=== PATIENT | male | born 1940 | race Caucasian/White ===

== ENCOUNTER 2016-07-06 17:00 | Emergency (ER) | payer MEDICARE, OTHER, SELFPAY ==
[2016-07-06] MEDS ORDERED: DUONEB 0.5-3 MG/3 ml Neb IH ONE ×2 (17:23→17:27)
[2016-07-06] MEDS ORDERED: solu-MEDROL 125 MG IV ONE (17:23)
--- NOTE | 2016-07-06 17:29 | ERPHSYRPT ---
- History of Present Illness Time Seen by Provider: 07/06/16 17:23 Source: patient Exam Limitations: no limitations Patient Subjective Stated Complaint: shortness of breath for three days Triage Nursing Assessment: to room per w/c. obvious sob at rest. breath sounds diminished with insp and exp wheezes. denies any pain. Physician History: 76-year-old white male arrives with complaint of shortness of breath wheezing symptoms for 3 days he states he had a cough productive of white sputum he has no chest pain he denies any fevers no nausea no vomiting. Past medical history includes COPD, high blood pressure, emphysema, chronic back pain.coronary artery disease Past surgical history includes bleeding ulcer repair, back surgeries, Social history positive tobacco use. Timing/Duration: day(s) (3 days worse today) Activities at Onset: none Severity of Dyspnea-Max: moderate Severity of Dyspnea-Current: moderate Possible Cause: occasional episodes Modifying Factors: Improves With: coughing. Worsens With: nothing, albuterol inhaler, albuterol nebulizer, deep breath, exertion, lying down, oxygen, rest Associated Symptoms: constant, cough, wheezing, productive cough, No chest pain/ discomfort, No edema, No fever, No insomnia, No loss of appetite, No lightheadedness, No weakness, No ankle swelling, No chills, No hemoptysis, No calf pain, No dizziness, No heaviness, No heart racing, No lightheadedness, No leg swelling, No muscle spasms feet, No muscle spasms hands, No painful breathing, No sweating, No tightness, No tingling face, No tingling hands International travel in last 2 weeks: No Allergies/Adverse Reactions: No Known Drug Allergies Allergy (Verified 07/06/16 17:22) Home Medications: Amlodipine Besylate 10 mg [Norvasc 10 MG] 10 mg PO DAILY 08/31/11 [History] Gabapentin [Neurontin] 600 mg PO BID 06/27/15 [History] Hydrocodone/APAP 10/325 mg [[place] 10/325 MG Tablet] 1 tab PO QIDPRN PRN [History] Latanoprost [Xalatan] 1 ml OP BID 06/27/15 [History] [place]-3 Fatty Acids [Fish Oil] 300 mg PO BID 07/06/16 [History] Hx Tetanus, Diphtheria Vaccination/Date Given: No Hx Influenza Vaccination/Date Given: Yes (2015) Hx Pneumococcal Vaccination/Date Given: Yes (2016) - Review of Systems Constitutional: No Fever, No Chills Eyes: No Symptoms Ears, Nose, & Throat: No Symptoms Respiratory: Cough, Dyspnea, Wheezing, No Cyanosis, No Dyspnea on Exertion (BELTRAN) , No Stridor Cardiac: No Chest Pain, No Edema, No Palpitations, No Syncope, No Orthopnea Abdominal/Gastrointestinal: No Abdominal Pain, No Nausea, No Vomiting, No Diarrhea Genitourinary Symptoms: No Dysuria Musculoskeletal: No Back Pain, No Neck Pain Skin: No Rash Neurological: No Dizziness, No Focal Weakness, No Sensory Changes Psychological: No Symptoms Endocrine: No Symptoms All Other Systems: Reviewed and Negative - Past Medical History Pertinent Past Medical History: Yes Neurological History: Peripheral Neuropathy ENT History: Cataracts, Glaucoma Cardiac History: Coronary Artery Disease, High Cholesterol, Hypertension Respiratory History: COPD, Emphysema, Pneumonia Endocrine Medical History: No Pertinent History Musculoskeletal History: Arthritis GI Medical History: Ulcer History: No Pertinent History Psycho-Social History: No Pertinent History Male Reproductive Disorders: No Pertinent History Other Medical History: pain history with BLE - Past Surgical History Past Surgical History: Yes Neuro Surgical History: No Pertinent History Cardiac: No Pertinent History Respiratory: No Pertinent History Gastrointestinal: Other Genitourinary: No Pertinent History Musculoskeletal: No Pertinent History Male Surgical History: No Pertinent History Other Surgical History: Bleeding ulcer repair, back operations to the lumbar region et neck. - Social History Smoking Status: Current every day smoker How long have you smoked: 64 Exposure to second hand smoke: Yes Drug Use: none Patient Lives Alone: No - Nursing Vital Signs Nursing Vital Signs: Initial Vital Signs Temperature 98.2 F Temperature Source Oral Pulse Rate 76 Respiratory Rate 20 Blood Pressure [] 120/60 Pain Intensity 0 - Physical Exam General Appearance: moderate distress Eye Exam: PERRL/EOMI, eyes nml inspection, No pale conjunctivae, No photophobia Ears, Nose, Throat Exam: hearing grossly normal, normal ENT inspection, normal pharynx, No abnormal TM (R), No abnormal TM (L), No sinus pain/drainage, No hearing decreased, No nasal congestion, No pharyngeal erythema, No tonsillar exudate, No tonsillar swelling Neck Exam: normal inspection, supple Respiratory Exam: diminished breath sounds, wheezing Cardiovascular/Chest Exam: normal heart sounds, regular rate/rhythm Abdominal/Gastrointestinal Exam: soft Extremity Exam: non-tender, normal range of motion, normal inspection, no calf tenderness, no pedal edema Peripheral Pulses Exam: dorsalis-pedis (R): 2+, dorsalis-pedis (L): 2+ Neurologic Exam: alert, oriented x 3, cooperative, medication nurse II-XII nml as tested, sensation nml, No motor deficits Skin Exam: normal color, warm, No dry SpO2 Interpretation: normal (97%) SpO2: 97 Oxygen Delivery: Room Air - Course Nursing assessment & vital signs reviewed: Yes EKG Interpreted by Me: RATE (67 bpm), Other (EKG: Sinus arrhythmia, 67 bpm, axis S1/QIII pattern, Q waves lead 3, no acute ST or T wave changes noted,) - Radiology Exams Chest X-ray Interpretation: Interpreted by me, Other (chest x-ray chronic interstitial lung markings in the bases cannot rule out superimposed pneumonia. ) Ordered Tests: Active Orders 24 hr Category Date Time Status Residential Program Director STAT Care 07/06/16 17:23 Active EKG-ER Only STAT Care 07/06/16 17:23 Active IV Insertion STAT Care 07/06/16 17:23 Active Oxygen-ED Only NASAL CANNULA 2 lpm Care 07/06/16 17:23 Active CHEST 1 VIEW (PORTABLE) Stat Exams 07/06/16 17:24 Taken BLOOD CULTURE Stat Lab 07/06/16 17:48 Received CBC W DIFF Stat Lab 07/06/16 17:48 Completed CMP Stat Lab 07/06/16 17:48 Completed CULTURE,SPUTUM Stat Lab 07/06/16 17:44 Ordered D-DIMER QUANTITATION Stat Lab 07/06/16 17:45 Completed NT PRO BNP Stat Lab 07/06/16 17:48 Completed TROPONIN Stat Lab 07/06/16 17:48 Completed VENOUS BLOOD GAS Urgent Lab 07/06/16 17:40 Completed Respiratory Nebulizer STAT RT 07/06/16 17:25 Completed Respiratory Nebulizer STAT RT 07/06/16 19:04 Active Medication Summary Generic Name Dose Route Start Last Admin Trade Name Freq PRN Reason Stop Dose Admin Ceftriaxone Sodium/Dextrose 50 mls @ 100 mls/hr 07/06/16 19:03 07/06/16 19:07 Rocephin 1 Gm-D5w 50 Ml Bag IV 07/06/16 19:32 100 mls/hr STAT ONE Administration Discontinued Medications Generic Name Dose Route Start Last Admin Trade Name Ting SALDIVAR Reason Stop Dose Admin Albuterol Sulfate 2.5 mg 07/06/16 19:03 07/06/16 19:19 Proventil 2.5 Mg/3 Ml Neb IH 07/06/16 19:04 2.5 mg STAT ONE Administration Albuterol Sulfate Confirm 07/06/16 19:19 Proventil 2.5 Mg/3 Ml Neb Administered 07/06/16 19:20 Dose 2.5 mg IH .STK-MED ONE Albuterol/Ipratropium 3 ml 07/06/16 17:23 07/06/16 17:28 Duoneb 0.5-3 Mg/3 Ml Neb IH 07/06/16 17:24 3 ml STAT ONE Administration Albuterol/Ipratropium Confirm 07/06/16 17:27 Duoneb 0.5-3 Mg/3 Ml Neb Administered 07/06/16 17:28 Dose 3 ml IH .STK-MED ONE Ceftriaxone Sodium/Dextrose Confirm 07/06/16 19:07 Rocephin 1 Gm-D5w 50 Ml Bag Administered 07/06/16 19:08 Dose 50 mls @ ud IV .STK-MED ONE Methylprednisolone Sodium Succinate 125 mg 07/06/16 17:23 07/06/16 17:54 Solu-Medrol 125 Mg IV 07/06/16 17:24 125 mg STAT ONE Administration Methylprednisolone Sodium Succinate Confirm 07/06/16 17:52 Solu-Medrol 125 Mg Administered 07/06/16 17:53 Dose 125 mg .ROUTE .STK-MED ONE Lab/Rad Data: Laboratory Result Diagrams 07/06/16 17:48 07/06/16 17:48 Laboratory Results 07/06/16 07/06/16 07/06/16 Range/Units 17:48 17:48 17:45 WBC 10.6 H (4.0-10.5) K/mm3 RBC 4.50 (4.1-5.6) M/mm3 Hgb 14.6 (12.5-18.0) gm/dl Hct 46.2 (42-50) % MCV 102.7 H (78-100) fl MCH 32.4 H (26-32) pg MCHC 31.6 L (32-36) g/dl RDW 13.8 (11.5-14.0) % Plt Count 251 (150-450) K/mm3 MPV 11.5 H (6-9.5) fl Gran % 63.8 (36.0-66.0) % Lymphocytes % 23.3 L (24.0-44.0) % Monocytes % 10.2 (0.0-12.0) % Eosinophils % 2.5 (0.00-5.0) % Basophils % 0.2 (0.0-0.4) % Basophils # 0.02 (0-0.4) D-Dimer 0.297 (0.00-0.49) mg/L VBG pH (7.32-7.42) VBG pCO2 at Pat Temp (42-55) mm/Hg VBG pO2 at Pat Temp (25-40) mm/Hg VBG HCO3 (22-28) meq/L VBG O2 Sat (Julai) (95-100) VBG Base Excess (-2.0-2.0) VBG Hemoglobin VBG Carboxyhemoglobin (0.0-6.9) % T HGB POC Potassium (3.5-5.1) Sodium 144 (136-145) mEq/L Potassium 4.6 (3.5-5.1) mEq/L Chloride 105 (98-107) mEq/L Carbon Dioxide 31.1 (21-32) mEq/L Anion Gap 12.2 (5-15) MEQ/L BUN 13 (9-20) mg/dL Creatinine 0.73 (0.55-1.30) mg/dl Estimated GFR > 60 ML/MIN Glucose 99 (70-110) MG/DL Calcium 8.4 L (8.5-10.1) mg/dL Total Bilirubin 0.4 (0.2-1.0) mg/dL AST 22 (15-37) U/L ALT 15 (12-78) U/L Alkaline Phosphatase 97 (46-116) U/L Troponin I < 0.017 (0.000-0.056) ng/ml NT-Pro-B Natriuret Pep 39 (0-450) pg/ml Serum Total Protein 6.4 (6.4-8.2) gm/dL Albumin 3.2 L (3.4-5.0) g/dL 07/06/16 Range/Units 17:40 WBC (4.0-10.5) K/mm3 RBC (4.1-5.6) M/mm3 Hgb (12.5-18.0) gm/dl Hct (42-50) % MCV (78-100) fl MCH (26-32) pg MCHC (32-36) g/dl RDW (11.5-14.0) % Plt Count (150-450) K/mm3 MPV (6-9.5) fl Gran % (36.0-66.0) % Lymphocytes % (24.0-44.0) % Monocytes % (0.0-12.0) % Eosinophils % (0.00-5.0) % Basophils % (0.0-0.4) % Basophils # (0-0.4) D-Dimer (0.00-0.49) mg/L VBG pH 7.42 (7.32-7.42) VBG pCO2 at Pat Temp 54 (42-55) mm/Hg VBG pO2 at Pat Temp 60 H (25-40) mm/Hg VBG HCO3 35.0 H* (22-28) meq/L VBG O2 Sat (Julia) 95.8 (95-100) VBG Base Excess 8.5 H (-2.0-2.0) VBG Hemoglobin 15.3 VBG Carboxyhemoglobin 5.7 (0.0-6.9) % T HGB POC Potassium 4.3 (3.5-5.1) Sodium (136-145) mEq/L Potassium (3.5-5.1) mEq/L Chloride (98-107) mEq/L Carbon Dioxide (21-32) mEq/L Anion Gap (5-15) MEQ/L BUN (9-20) mg/dL Creatinine (0.55-1.30) mg/dl Estimated GFR ML/MIN Glucose (70-110) MG/DL Calcium (8.5-10.1) mg/dL Total Bilirubin (0.2-1.0) mg/dL AST (15-37) U/L ALT (12-78) U/L Alkaline Phosphatase (46-116) U/L Troponin I (0.000-0.056) ng/ml NT-Pro-B Natriuret Pep (0-450) pg/ml Serum Total Protein (6.4-8.2) gm/dL Albumin (3.4-5.0) g/dL - Progress Progress: improved Air Movement: fair Progress Note: 07/06/16 19:05 Patient feeling better after DuoNeb and Solu-Medrol. Patient with increased lung markings bilateral bases which appear to be chronic but cannot rule out superimposed pneumonia. Patient with a few scattered wheezes remaining but improving. I have suggested placement for observation. Patient states he does not want to be admitted. Will give patient another albuterol treatment Will give 1 g of Rocephin IV and recheck. 07/06/16 19:25 Patient feeling better does not want to be admitted . Will send patient home with tapering dose of prednisone, albuterol inhaler, and Zithromax. Patient advised to follow-up with his family doctor. He is return for any problems or acute distress Patient is also advised to quit smoking. - Departure Time of Disposition: 19:26 Departure Disposition: Home Clinical Impression: Shortness of breath, COPD with exacerbation Pneumonia Qualifiers: Pneumonia type: due to unspecified organism Laterality: bilateral Lung location : lower lobe of lung Qualified Code(s): J18.9 - Pneumonia, unspecified organism Condition: Fair Critical Care Time: No Referrals: DOCTOR,NO FAMILY [Primary Care Provider] - Instructions: Chronic Obstructive Pulmonary Disease, Shortness of Breath, Pneumonia -- Adult Additional Instructions: Return home. Albuterol inhaler 2 puffs every 4-6 hours as needed. Zithromax Z-BEA as directed. Tapering dose of prednisone as directed. Follow-up with your family doctor. Return for any problems. Return for acute distress or for severe symptoms. stop smoking. Stop smoking. Stop smoking. Prescriptions: Albuterol Common Canister [Proventil Common Canister] 2 puff IH Q4-6HPRN PRN #0 puff PRN Reason: sob, wheezing Azithromycin 250 mg [Zithromax 250 MG TABLET] 0 mg PO ZPACK #6 tablet
[2016-07-06 17:44] LABS: VBG BASE EXCESS 8.5 (-2.0-2.0); VBG CARBOXYHEMOGLOBIN 5.7 % T HGB (0.0-6.9); VBG HEMOGLOBIN 15.3; VBG O2 SATURATION 95.8 (95-100); VBG POTASSIUM 4.3 (3.5-5.1); VBG pH 7.42 (7.32-7.42)
[2016-07-06] MEDS ORDERED: solu-MEDROL 125 MG ONE (17:52)
[2016-07-06 18:03] LABS: BASOPHIL % 0.2 % (0.0-0.4); Eosinophil % 2.5 % (0.00-5.0); Granulocytes % 63.8 % (36.0-66.0); Lymphocytes % 23.3 % (24.0-44.0); Mean Cell Volume 102.7 fl (78-100); Mean Corpuscular Hemoglobin 32.4 pg (26-32); Mean Platelet Volume 11.5 fl (6-9.5); Monocytes % 10.2 % (0.0-12.0); Platelet Count 251 K/mm3 (150-450); Red Cell Distribution Width 13.8 % (11.5-14.0); White Blood Count 10.6 K/mm3 (4.0-10.5)
[2016-07-06 18:29] LABS: ALBUMIN 3.2 g/dL (3.4-5.0); ALKALINE PHOSPHATASE 97 U/L (46-116); ANION GAP 12.2 MEQ/L (5-15); BILIRUBIN,TOTAL 0.4 mg/dL (0.2-1.0); BLOOD UREA NITROGEN 13 mg/dL (9-20); CHLORIDE 105 mEq/L (98-107); Carbon Dioxide 31.1 mEq/L (21-32); Glucose 99 MG/DL (70-110); Potassium 4.6 mEq/L (3.5-5.1); SGOT/AST 22 U/L (15-37); SGPT/ALT 15 U/L (12-78); SODIUM 144 mEq/L (136-145); TROPONIN < 0.017 ng/ml (0.000-0.056); Total Protein 6.4 gm/dL (6.4-8.2)
[2016-07-06] MEDS ORDERED: PROVENTIL 2.5 MG/3 ML NEB IH ONE ×2 (19:03→19:19)
[2016-07-06] MEDS ORDERED: ROCEPHIN 1 Gm-D5w 50 ml Bag** 50 ML IV ONE ×2 (19:03→19:07)
[2016-07-06 20:00] VITALS: BP 132/97; PULSE 76; O2SAT 95
--- NOTE | 2016-07-07 08:58 | XRAY ---
Indication: Short of breath. Comparison: June 26, 2015. Portable chest unchanged again with chronic lung markings. No focal infiltrate, consolidation, or large effusion. Heart is not enlarged. Vascularity normal. Bony thorax intact again with mild osteopenia and degenerative changes. Impression: Stable nonacute chest with chronic features.
== END 2016-07-06 20:07 | disposition home or self-care (01) ==
LOC: ED 17:00
DX: J18.9 Pneumonia, unspecified organism (principal); R06.02 Shortness of breath; I25.10 Atherosclerotic heart disease of native coronary artery without angina pectoris; I10 Essential (primary) hypertension; J43.9 Emphysema, unspecified
CPT/HCPCS: 36000; 36415; 71010; 80053; 82805; 83880; 84484; 85025; 85379; 87040; 93005; 93041; 94640; 96360; 96365; 96374; 99284; 99285; J0696; J2930; A9270-GY

== ENCOUNTER 2016-08-26 13:23 | Emergency (ER) | payer OTHER, MEDICARE ==
[2016-08-26] MEDS ORDERED: solu-MEDROL 125 MG IV ONE (13:38)
[2016-08-26] MEDS ORDERED: DUONEB 0.5-3 MG/3 ml Neb IH ONE ×2 (13:38→13:49)
[2016-08-26] MEDS ORDERED: Zofran 4 MG/2 ML VIAL IV ONE (13:40)
--- NOTE | 2016-08-26 13:43 | ERPHSYRPT ---
- History of Present Illness Time Seen by Provider: 08/26/16 13:38 Source: patient, family Exam Limitations: no limitations Physician History: Patient is a 76-year-old male with his son complaining of increasing shortness of breath for one week. Then a few days ago he became nauseated and has vomited with each oral intake. The son states he lost 10 pounds. The patient has reduced greenish ervin sputum at times. His past medical history significant for pneumonia, COPD, high blood pressure, and peripheral neuropathy. Timing/Duration: week(s) (1) Activities at Onset: none Severity of Dyspnea-Max: moderate Severity of Dyspnea-Current: moderate Possible Cause: occasional episodes, smoke exposure Modifying Factors: Improves With: albuterol inhaler, coughing Associated Symptoms: cough, wheezing Allergies/Adverse Reactions: No Known Drug Allergies Allergy (Verified 08/26/16 13:41) Home Medications: Amlodipine Besylate 10 mg [Norvasc 10 MG] 10 mg PO DAILY 08/31/11 [History] Gabapentin [Neurontin] 600 mg PO BID 06/27/15 [History] Hydrocodone/APAP 10/325 mg [[place] 10/325 MG Tablet] 1 tab PO QIDPRN PRN [History] Latanoprost [Xalatan] 1 ml OP BID 06/27/15 [History] [place]-3 Fatty Acids [Fish Oil] 300 mg PO BID 07/06/16 [History] Hx Tetanus, Diphtheria Vaccination/Date Given: No Hx Influenza Vaccination/Date Given: Yes (2015) Hx Pneumococcal Vaccination/Date Given: Yes (2015) - Review of Systems Constitutional: No Fever, No Chills Eyes: No Symptoms Ears, Nose, & Throat: No Symptoms Respiratory: Cough, Dyspnea Cardiac: No Chest Pain, No Edema, No Syncope Abdominal/Gastrointestinal: Vomiting Genitourinary Symptoms: No Dysuria Musculoskeletal: No Back Pain, No Neck Pain Skin: No Rash Neurological: No Dizziness, No Focal Weakness, No Sensory Changes Psychological: No Symptoms Endocrine: No Symptoms Hematologic/Lymphatic: No Symptoms Immunological/Allergic: No Symptoms All Other Systems: Reviewed and Negative - Past Medical History Pertinent Past Medical History: Yes Neurological History: Peripheral Neuropathy ENT History: Cataracts, Glaucoma Cardiac History: Coronary Artery Disease, High Cholesterol, Hypertension Respiratory History: COPD, Emphysema, Pneumonia Endocrine Medical History: No Pertinent History Musculoskeletal History: Arthritis GI Medical History: Ulcer History: No Pertinent History Psycho-Social History: No Pertinent History Male Reproductive Disorders: No Pertinent History Other Medical History: pain history with BLE - Past Surgical History Past Surgical History: Yes Neuro Surgical History: No Pertinent History Cardiac: No Pertinent History Respiratory: No Pertinent History Gastrointestinal: Other Genitourinary: No Pertinent History Musculoskeletal: No Pertinent History Male Surgical History: No Pertinent History Other Surgical History: Bleeding ulcer repair, back operations to the lumbar region et neck. - Social History Smoking Status: Current every day smoker How long have you smoked: 64 Exposure to second hand smoke: Yes Drug Use: none Patient Lives Alone: No - Nursing Vital Signs Nursing Vital Signs: Initial Vital Signs Temperature 98 F Temperature Source Oral Pulse Rate 95 Respiratory Rate 20 Blood Pressure [Right Arm] 136/66 Blood Pressure [Left Arm] 130/63 Pain Intensity 0 - Physical Exam General Appearance: no apparent distress, alert Eye Exam: PERRL/EOMI Ears, Nose, Throat Exam: hearing grossly normal Neck Exam: normal inspection, supple Respiratory Exam: diminished breath sounds, rhonchi, wheezing Cardiovascular/Chest Exam: normal heart sounds, regular rate/rhythm Abdominal/Gastrointestinal Exam: soft, No tenderness, No distention, No mass Rectal Exam: not done Extremity Exam: non-tender, normal range of motion, normal inspection, no calf tenderness, no pedal edema Neurologic Exam: alert, oriented x 3, cooperative, gut cleaner II-XII nml as tested, sensation nml, No motor deficits Skin Exam: normal color, warm, No dry SpO2 Interpretation: normal - Radiology Exams Chest X-ray Interpretation: Teleradiologist Report, Negative (stable nonacute chest per Dr Randolph) Abdomen X-ray Interpretation: Teleradiologist Report, Negative (nonacute nonobstructed abd per Dr Randolph.) Ordered Tests: Active Orders 24 hr Category Date Time Status IV Insertion STAT Care 08/26/16 13:38 Active Pulse Oximetry (ED) STAT Care 08/26/16 13:38 Active ABDOMEN 2 VIEW Stat Exams 08/26/16 13:45 Completed CHEST 2 VIEWS (PA AND LAT) Stat Exams 08/26/16 13:39 Completed CBC W DIFF Stat Lab 08/26/16 13:50 Completed CMP Stat Lab 08/26/16 13:50 Completed NT PRO BNP Stat Lab 08/26/16 13:50 Completed TROPONIN Stat Lab 08/26/16 13:50 Completed Respiratory Nebulizer STAT RT 08/26/16 13:49 Completed Respiratory Nebulizer STAT RT 08/26/16 14:52 Ordered Medication Summary Generic Name Dose Route Start Last Admin Trade Name Ting PRN Reason Stop Dose Admin Albuterol Sulfate 2.5 mg 08/26/16 14:52 Proventil 2.5 Mg/3 Ml Neb IH 08/26/16 14:53 STAT ONE Discontinued Medications Generic Name Dose Route Start Last Admin Trade Name Ting PRN Reason Stop Dose Admin Albuterol/Ipratropium Confirm 08/26/16 13:38 Duoneb 0.5-3 Mg/3 Ml Neb Administered 08/26/16 13:39 Dose 3 ml IH .STK-MED ONE Albuterol/Ipratropium 3 ml 08/26/16 13:49 08/26/16 13:40 Duoneb 0.5-3 Mg/3 Ml Neb IH 08/26/16 13:50 3 ml STAT ONE Administration Methylprednisolone Sodium Succinate 125 mg 08/26/16 13:38 08/26/16 13:47 Solu-Medrol 125 Mg IV 08/26/16 13:39 125 mg STAT ONE Administration Methylprednisolone Sodium Succinate Confirm 08/26/16 13:44 Solu-Medrol 125 Mg Administered 08/26/16 13:45 Dose 125 mg .ROUTE .STK-MED ONE Ondansetron HCl 4 mg 08/26/16 13:40 08/26/16 13:47 Zofran 4 Mg/2 Ml Vial IV 08/26/16 13:41 4 mg STAT ONE Administration Ondansetron HCl Confirm 08/26/16 13:44 Zofran 4 Mg/2 Ml Vial Administered 08/26/16 13:45 Dose 4 mg .ROUTE .STK-MED ONE Lab/Rad Data: Laboratory Result Diagrams 08/26/16 13:50 08/26/16 13:50 Laboratory Results 08/26/16 08/26/16 Range/Units 13:50 13:50 WBC 9.6 (4.0-10.5) K/mm3 RBC 4.59 (4.1-5.6) M/mm3 Hgb 15.1 (12.5-18.0) gm/dl Hct 46.6 (42-50) % MCV 101.5 H (78-100) fl MCH 32.9 H (26-32) pg MCHC 32.4 (32-36) g/dl RDW 13.8 (11.5-14.0) % Plt Count 256 (150-450) K/mm3 MPV 11.3 H (6-9.5) fl Gran % 65.0 (36.0-66.0) % Lymphocytes % 23.0 L (24.0-44.0) % Monocytes % 10.1 (0.0-12.0) % Eosinophils % 1.7 (0.00-5.0) % Basophils % 0.2 (0.0-0.4) % Basophils # 0.02 (0-0.4) Sodium 141 (136-145) mEq/L Potassium 3.4 L (3.5-5.1) mEq/L Chloride 106 (98-107) mEq/L Carbon Dioxide 27.6 (21-32) mEq/L Anion Gap 10.5 (5-15) MEQ/L BUN 12 (9-20) mg/dL Creatinine 1.06 (0.55-1.30) mg/dl Estimated GFR > 60 ML/MIN Glucose 148 H (70-110) MG/DL Calcium 8.5 (8.5-10.1) mg/dL Total Bilirubin 0.70 (0.2-1.0) mg/dL AST 17 (15-37) U/L ALT 17 (12-78) U/L Alkaline Phosphatase 95 (46-116) U/L Troponin I < 0.017 (0.000-0.056) ng/ml NT-Pro-B Natriuret Pep 30 (0-450) pg/ml Serum Total Protein 6.6 (6.4-8.2) gm/dL Albumin 3.3 L (3.4-5.0) g/dL - Progress Progress: improved Air Movement: fair Progress Note: 08/26/16 14:55 After a DuoNeb treatment and Solu-Medrol 125 mg IV, the patient is breathing better. Auscultation of the chest shows no wheezing now but still rhonchi. Blood Culture(s) Obtained: No Antibiotics given: Yes Counseled pt/family regarding: lab results, diagnosis, need for follow-up, rad results - Departure Time of Disposition: 14:56 Departure Disposition: Home Clinical Impression: Bronchitis, Vomiting Condition: Stable Critical Care Time: No Additional Instructions: You have bronchitis and vomiting. You were given a DuoNeb treatment, albuterol treatment, Solu-Medrol 125 mg IV, and Zofran 4 mg IV in the ER. Take prednisone 60 mg daily for 5 days, azithromycin dose pack as directed, Zofran 4 mg ODT every 6 hours as needed, and albuterol nebulizer every 2-4 hours as needed. Follow-up next week. Prescriptions: Ondansetron [Zofran Odt] 4 mg PO Q6HPRN PRN #10 tab.rapdis PRN Reason: Nausea/Vomiting Albuterol 2.5 mg/3 ml Neb [Proventil 2.5 mg/3 ml Neb] 2.5 mg IH Q4-6HPRN PRN #20 neb PRN Reason: Shortness Of Breath/Wheezing Azithromycin 250 mg [Zithromax 250 MG TABLET] 250 mg PO ZPACK #6 tablet Prednisone 10 mg [Deltasone 10 mg] 60 mg PO UD #30 tablet
[2016-08-26] MEDS ORDERED: solu-MEDROL 125 MG ONE (13:44)
[2016-08-26] MEDS ORDERED: Zofran 4 MG/2 ML VIAL ONE (13:44)
[2016-08-26 13:57] LABS: BASOPHIL % 0.2 % (0.0-0.4); Eosinophil % 1.7 % (0.00-5.0); Mean Cell Volume 101.5 fl (78-100); Mean Corpuscular Hemoglobin 32.9 pg (26-32); Mean Platelet Volume 11.3 fl (6-9.5); Monocytes % 10.1 % (0.0-12.0); Platelet Count 256 K/mm3 (150-450); Red Blood Count 4.59 M/mm3 (4.1-5.6); Red Cell Distribution Width 13.8 % (11.5-14.0); White Blood Count 9.6 K/mm3 (4.0-10.5)
[2016-08-26 14:25] LABS: ALBUMIN 3.3 g/dL (3.4-5.0); ALKALINE PHOSPHATASE 95 U/L (46-116); ANION GAP 10.5 MEQ/L (5-15); BLOOD UREA NITROGEN 12 mg/dL (9-20); CHLORIDE 106 mEq/L (98-107); Carbon Dioxide 27.6 mEq/L (21-32); Glucose 148 MG/DL (70-110); Potassium 3.4 mEq/L (3.5-5.1); SGOT/AST 17 U/L (15-37); SGPT/ALT 17 U/L (12-78); SODIUM 141 mEq/L (136-145); TROPONIN < 0.017 ng/ml (0.000-0.056); Total Protein 6.6 gm/dL (6.4-8.2)
--- NOTE | 2016-08-26 14:35 | XRAY ---
Indication: Cough. Short of breath. Comparison: July 06, 2016. PA/lateral chest again hyperinflated with chronic lung markings and left base discoid atelectasis/scarring. No focal infiltrate, consolidation, or large effusion. Heart is not enlarged. Bony thorax intact again with mild osteopenia and degenerative changes. Impression: Stable nonacute chest with chronic features.
--- NOTE | 2016-08-26 14:37 | XRAY ---
Indication: Cough. Vomiting. Comparison: None 2 views of the abdomen nonacute and nonobstructed with mild fecal debris in the transverse and descending colon. No free air. Solid organs unremarkable. Osseous structures intact with mild osteopenia, multilevel spinal degenerative spondylosis, and mild double curvature scoliosis. Impression: Nonacute nonobstructed abdomen.
[2016-08-26 14:46] VITALS: BP 136/66
[2016-08-26] MEDS ORDERED: PROVENTIL 2.5 MG/3 ML NEB IH ONE ×2 (14:52→14:58)
[2016-08-26] MEDS ORDERED: ROCEPHIN 1 Gm-D5w 50 ml Bag** 1 G/50 ML IVPB IV ONE ×2 (14:53→14:55)
[2016-08-26 15:07] VITALS: PULSE 103; O2SAT 92
== END 2016-08-26 15:18 | disposition home or self-care (01) ==
LOC: ED 13:23
DX: J40 Bronchitis, not specified as acute or chronic (principal); R11.2 Nausea with vomiting, unspecified; J44.9 Chronic obstructive pulmonary disease, unspecified; I10 Essential (primary) hypertension; G62.9 Polyneuropathy, unspecified; R05 Cough; R06.2 Wheezing
CPT/HCPCS: 36000; 36415; 71020; 74020; 80053; 83880; 84484; 85025; 94640; 96374; 96375; 99284; J0696; J2405; J2930; A9270-GY

== ENCOUNTER 2017-05-07 23:00 | Emergency (ER) | payer OTHER, MEDICARE ==
[2017-05-07] MEDS ORDERED: TETRACAINE 0.5% STERI-UNIT SOL OP ONE (23:05)
[2017-05-07] MEDS ORDERED: Fluor-I-Strip/Ful-Flo OP ONE ×2 (23:05→23:09)
[2017-05-07] MEDS ORDERED: Eye-Stream Solution OP ONE (23:09)
[2017-05-07] MEDS ORDERED: TETRACAINE 0.5% STERI-UNIT SOL OP STA (23:09)
[2017-05-07 23:10] VITALS: BP 155/105; PULSE 88; O2SAT 96
[2017-05-07] MEDS ORDERED: Eye-Stream Solution ONE (23:11)
[2017-05-07] MEDS ORDERED: SODIUM SULAMYD EYE DROPS 15 ML OP ONE ×2 (23:33→23:34)
--- NOTE | 2017-05-07 23:38 | ERPHSYRPT ---
- History of Present Illness Time Seen by Provider: 05/07/17 23:18 Source: patient Exam Limitations: no limitations Patient Subjective Stated Complaint: Left Eye Foreign Body Triage Nursing Assessment: Pt states he was sitting at home when he suddenly began to have left eye irritation. Pt states he does not know if there is anything in his eye but states "it feels like theres a log in there." No redness , drainage, or obvious foreign body noted to left eye. Pt deneis other complaints. Pt is A&O x4, no distress noted. Physician History: ABOUT 2 HOURS AGO PT FELT SOME LEFT EYE IRRITATION LIKE THERE WAS SOMETHING IN IT; DENIES TRAUMA, FEVER, SORE THROAT. PT STATES HE CAN SEE WELL OUT OF HIS LEFT EYE. Allergies/Adverse Reactions: No Known Drug Allergies Allergy (Verified 08/26/16 13:41) Home Medications: Amlodipine Besylate 10 mg [Norvasc 10 MG] 10 mg PO DAILY 08/31/11 [History] Gabapentin [Neurontin] 600 mg PO BID 06/27/15 [History] Hydrocodone/APAP 10/325 mg [[place] 10/325 MG Tablet] 1 tab PO QIDPRN PRN [History] Latanoprost [Xalatan] 1 ml OP BID 06/27/15 [History] [place]-3 Fatty Acids [Fish Oil] 300 mg PO BID 07/06/16 [History] Hx Tetanus, Diphtheria Vaccination/Date Given: No Hx Influenza Vaccination/Date Given: No Hx Pneumococcal Vaccination/Date Given: No Immunizations Up to Date: No - Review of Systems Constitutional: No Fever Eyes: Foreign Body Sensation, No Vision Changes Ears, Nose, & Throat: No Throat Pain Respiratory: No Dyspnea Cardiac: No Chest Pain All Other Systems: Reviewed and Negative - Past Medical History Pertinent Past Medical History: Yes Neurological History: Peripheral Neuropathy ENT History: Cataracts, Glaucoma Cardiac History: Coronary Artery Disease, High Cholesterol, Hypertension Respiratory History: COPD, Emphysema, Pneumonia Endocrine Medical History: No Pertinent History Musculoskeletal History: Arthritis GI Medical History: Ulcer History: No Pertinent History Psycho-Social History: No Pertinent History Male Reproductive Disorders: No Pertinent History Other Medical History: pain history with BLE - Past Surgical History Past Surgical History: Yes Neuro Surgical History: No Pertinent History Cardiac: No Pertinent History Respiratory: No Pertinent History Gastrointestinal: Other Genitourinary: No Pertinent History Musculoskeletal: No Pertinent History Male Surgical History: No Pertinent History Other Surgical History: Bleeding ulcer repair, back operations to the lumbar region et neck. - Social History Smoking Status: Current every day smoker How long have you smoked: 64 years Exposure to second hand smoke: Yes Drug Use: none Patient Lives Alone: No - Nursing Vital Signs Nursing Vital Signs: Initial Vital Signs Temperature 97.7 F 05/07/17 23:04 Pulse Rate 88 05/07/17 23:04 Respiratory Rate 16 05/07/17 23:04 Blood Pressure 155/105 05/07/17 23:04 O2 Sat by Pulse Oximetry 96 05/07/17 23:04 Pain Scale Pain Intensity 0 - Physical Exam General Appearance: alert Eye Exam: PERRL/EOMI, other (LEFT CONJUNCTIVAE MILDLY INJECTED; NO F.B. SEEN IN LEFT EYE; NO CORNEAL ABRASION SEEN IN LEFT EYE UPON FLUORESCEIN STAINING.) Ears, Nose, Throat Exam: pharynx normal, moist mucous membranes Neck Exam: normal inspection Respiratory Exam: lungs clear Cardiovascular Exam: normal heart sounds Neurologic Exam: alert, cooperative Skin Exam: warm, dry SpO2 Interpretation: normal SpO2: 96 Oxygen Delivery: Room Air - Course Nursing assessment & vital signs reviewed: Yes Ordered Tests: Medication Summary Generic Name Dose Route Start Last Admin Trade Name Freq PRN Reason Stop Dose Admin Sulfacetamide Sodium 15 ml 05/07/17 23:33 Sodium Sulamyd Eye Drops 15 Ml OP 05/07/17 23:34 STAT ONE Discontinued Medications Generic Name Dose Route Start Last Admin Trade Name Freq PRN Reason Stop Dose Admin Eye Irrigation Solution 15 ml 05/07/17 23:09 05/07/17 23:12 Eye-Stream Solution OP 05/07/17 23:10 30 ml STAT ONE Administration Eye Irrigation Solution Confirm 05/07/17 23:11 Eye-Stream Solution Administered 05/07/17 23:12 Dose 30 ml .ROUTE .STK-MED ONE Fluorescein Sodium Confirm 05/07/17 23:05 Hlcsn-V-Gszjn/Ful-Nilesh Administered 05/07/17 23:06 Dose 1 mg OP .STK-MED ONE Fluorescein Sodium 1 mg 05/07/17 23:09 05/07/17 23:11 Kbvrn-M-Jeaif/Ful-Nilesh OP 05/07/17 23:10 1 mg STAT ONE Administration Tetracaine HCl Confirm 05/07/17 23:05 Tetracaine 0.5% Steri-Unit Evette Administered 05/07/17 23:06 Dose 4 ml OP .STK-MED ONE Tetracaine HCl 4 ml 05/07/17 23:09 05/07/17 23:11 Tetracaine 0.5% Steri-Unit Evette OP 05/07/17 23:10 4 ml STAT STA Administration - Departure Time of Disposition: 23:43 Departure Disposition: Home Clinical Impression: CONJUNCTIVITIS OF LEFT EYE Condition: Stable Critical Care Time: No Referrals: DOCTOR,NO FAMILY [Primary Care Provider] - Instructions: Conjunctivitis ([place]) Additional Instructions: FOLLOW UP WITH EYE DOCTOR TOMORROW. PLACE 2 DROPS OF SULFACETAMIDE OPHTHALMIC IN LEFT EYE 3 TIMES EACH DAY FOR THE NEXT 10 DAYS.
== END 2017-05-08 | disposition home or self-care (01) ==
LOC: ED 23:00
DX: H10.9 Unspecified conjunctivitis (principal)
CPT/HCPCS: 99283; A9270-GY

== ENCOUNTER 2017-05-21 23:20 | Emergency (ER) | payer MEDICARE, OTHER ==
[2017-05-21] MEDS ORDERED: Sodium Chloride 0.9% 1000 ML 1,000 ML IV SCH (23:45)
[2017-05-21] MEDS ORDERED: DUONEB 0.5-3 MG/3 ml Neb IH ONE ×2 (23:48→23:57)
[2017-05-21] MEDS ORDERED: solu-MEDROL 125 MG IV ONE (23:48)
--- NOTE | 2017-05-21 23:48 | ERPHSYRPT ---
- History of Present Illness Time Seen by Provider: 05/21/17 23:44 Source: patient, family Exam Limitations: no limitations Patient Subjective Stated Complaint: c/o shortness of air "off and on for awhile " Triage Nursing Assessment: bilat diminished breath sounds, no wheezes noted on assessment, c/o feeling short of air with exertion, no fevers, no nausea, vomiting, swelling noted on assessment Physician History: pt describes sobreath without known fever , some dry cough no N or V denies CAD or Diabetes Timing/Duration: day(s) Cough Quality/Degree: dry cough Possible Cause: no prior episodes Modifying Factors: Improves With: nothing Associated Symptoms: cough Allergies/Adverse Reactions: No Known Drug Allergies Allergy (Verified 08/26/16 13:41) Home Medications: Amlodipine Besylate 10 mg [Norvasc 10 MG] 10 mg PO DAILY 08/31/11 [History] Gabapentin [Neurontin] 600 mg PO BID 06/27/15 [History] Hydrocodone/APAP 10/325 mg [[place] 10/325 MG Tablet] 1 tab PO QIDPRN PRN [History] Latanoprost [Xalatan] 1 ml OP BID 06/27/15 [History] [place]-3 Fatty Acids [Fish Oil] 300 mg PO BID 07/06/16 [History] Hx Tetanus, Diphtheria Vaccination/Date Given: Yes Hx Influenza Vaccination/Date Given: No Hx Pneumococcal Vaccination/Date Given: No Immunizations Up to Date: Yes - Review of Systems Constitutional: No Fever, No Chills Eyes: No Symptoms Ears, Nose, & Throat: No Symptoms Respiratory: Cough, Dyspnea Cardiac: No Chest Pain, No Edema, No Syncope Abdominal/Gastrointestinal: No Abdominal Pain, No Nausea, No Vomiting, No Diarrhea Genitourinary Symptoms: No Dysuria Musculoskeletal: No Back Pain, No Neck Pain Skin: No Rash Neurological: No Dizziness, No Focal Weakness, No Sensory Changes Psychological: No Symptoms Endocrine: No Symptoms All Other Systems: Reviewed and Negative - Past Medical History Pertinent Past Medical History: Yes Neurological History: Peripheral Neuropathy ENT History: Cataracts, Glaucoma Cardiac History: Coronary Artery Disease, High Cholesterol, Hypertension Respiratory History: COPD, Emphysema, Pneumonia Endocrine Medical History: No Pertinent History Musculoskeletal History: Arthritis GI Medical History: Ulcer History: No Pertinent History Psycho-Social History: No Pertinent History Male Reproductive Disorders: No Pertinent History Other Medical History: pain history with BLE - Past Surgical History Past Surgical History: Yes Neuro Surgical History: No Pertinent History Cardiac: No Pertinent History Respiratory: No Pertinent History Gastrointestinal: Other Genitourinary: No Pertinent History Musculoskeletal: No Pertinent History Male Surgical History: No Pertinent History Other Surgical History: Bleeding ulcer repair, back operations to the lumbar region et neck. - Social History Smoking Status: Never smoker How long have you smoked: 64 years Exposure to second hand smoke: Yes Drug Use: none Patient Lives Alone: No - Nursing Vital Signs Nursing Vital Signs: Initial Vital Signs Respiratory Rate 20 05/21/17 23:32 O2 Sat by Pulse Oximetry 97 05/21/17 23:32 Pain Scale Pain Intensity 3 - Physical Exam General Appearance: no apparent distress, alert Eye Exam: PERRL/EOMI, eyes nml inspection Ears, Nose, Throat Exam: normal ENT inspection, TMs normal, pharynx normal, moist mucous membranes Neck Exam: normal inspection, non-tender, supple, full range of motion Respiratory Exam: normal breath sounds, lungs clear, No respiratory distress Cardiovascular Exam: regular rate/rhythm, normal heart sounds Gastrointestinal/Abdomen Exam: soft, No tenderness Back Exam: normal inspection, No CVA tenderness, No vertebral tenderness Extremity Exam: normal inspection, normal range of motion Neurologic Exam: alert, oriented x 3, cooperative, normal mood/affect, sensation nml, No motor deficits Skin Exam: normal color, warm, dry, No rash Lymphatic Exam: No adenopathy SpO2: 97 Oxygen Delivery: Room Air - Course Nursing assessment & vital signs reviewed: Yes EKG Interpreted by Me: Sinus Rhythm, Right Bundle Branch Block, Non-specific ST Changes - Radiology Exams Chest X-ray Interpretation: Reviewed by me, No Pneumonia, Other (peribronchial thickening/infiltrate) Ordered Tests: Active Orders 24 hr Category Date Time Status Bankruptcy Processor STAT Care 05/21/17 23:49 Active Clean Catch Urine Specimen STAT Care 05/21/17 23:48 Active EKG-ER Only STAT Care 05/21/17 23:48 Active IV Insertion STAT Care 05/21/17 23:48 Active Pulse Oximetry (ED) STAT Care 05/21/17 23:48 Active CHEST 2 VIEWS (PA AND LAT) Stat Exams 05/22/17 01:23 Taken Lactic Acid Stat Lab 05/21/17 23:48 Completed TROPONIN Q3H Lab 05/22/17 02:49 Ordered TROPONIN Q3H Lab 05/22/17 05:49 Ordered TROPONIN Q3H Lab 05/22/17 08:49 Ordered TROPONIN Q3H Lab 05/22/17 11:49 Ordered UA W/RFX UR CULTURE Stat Lab 05/21/17 23:49 Ordered Respiratory Nebulizer STAT RT 05/21/17 23:51 Completed Medication Summary Generic Name Dose Route Start Last Admin Trade Name Freq PRN Reason Stop Dose Admin Sodium Chloride 1,000 mls @ 100 mls/hr 05/21/17 23:45 05/22/17 00:37 Sodium Chloride 0.9% 1000 Ml IV 06/20/17 23:44 100 mls/hr .Q10H GARETT Administration Discontinued Medications Generic Name Dose Route Start Last Admin Trade Name Freq PRN Reason Stop Dose Admin Albuterol/Ipratropium 3 ml 05/21/17 23:48 05/22/17 00:36 Duoneb 0.5-3 Mg/3 Ml Neb IH 05/21/17 23:49 3 ml STAT ONE Administration Albuterol/Ipratropium Confirm 05/21/17 23:57 Duoneb 0.5-3 Mg/3 Ml Neb Administered 05/21/17 23:58 Dose 3 ml IH .STK-MED ONE Methylprednisolone Sodium Succinate 125 mg 05/21/17 23:48 05/22/17 00:37 Solu-Medrol 125 Mg IV 05/21/17 23:49 125 mg STAT ONE Administration Methylprednisolone Sodium Succinate Confirm 05/22/17 00:34 Solu-Medrol 125 Mg Administered 05/22/17 00:35 Dose 125 mg .ROUTE .STK-MED ONE Lab/Rad Data: Laboratory Result Diagrams 05/21/17 00:10 05/21/17 00:10 Laboratory Results 05/22/17 05/21/17 05/21/17 Range/Units 00:18 01:00 00:10 WBC (4.0-10.5) K/mm3 RBC (4.1-5.6) M/mm3 Hgb (12.5-18.0) gm/dl Hct (42-50) % MCV (78-100) fl MCH (26-32) pg MCHC (32-36) g/dl RDW (11.5-14.0) % Plt Count (150-450) K/mm3 MPV (6-9.5) fl Segmented Neutrophils (36.-66.) % Lymphocytes (Manual) (24-44) % Monocytes (Manual) (0.0-12.0) % Eosinophils (Manual) (0.00-3.0) % Differential Comment Platelet Estimate (NORMAL) D-Dimer (0-500) ng/mL Sodium (136-145) mEq/L Potassium (3.5-5.1) mEq/L Chloride (98-107) mEq/L Carbon Dioxide (21-32) mEq/L Anion Gap (5-15) MEQ/L BUN (9-20) mg/dL Creatinine (0.55-1.30) mg/dl Estimated GFR ML/MIN Glucose (70-110) MG/DL Lactic Acid 0.7 (0.4-2.0) Calcium (8.5-10.1) mg/dL Total Bilirubin (0.2-1.0) mg/dL AST (15-37) U/L ALT (12-78) U/L Alkaline Phosphatase (46-116) U/L Troponin I < 0.017 (0.000-0.056) ng/ml NT-Pro-B Natriuret Pep (0-450) pg/ml Serum Total Protein (6.4-8.2) gm/dL Albumin (3.4-5.0) g/dL Influenza Type A Ag NEGATIVE (NEGATIVE) Influenza Type B Ag POSITIVE (NEGATIVE) RSV (PCR) NEGATIVE (Negative) 05/21/17 05/21/17 05/21/17 Range/Units 00:10 00:10 00:10 WBC 9.6 (4.0-10.5) K/mm3 RBC 4.56 (4.1-5.6) M/mm3 Hgb 14.9 (12.5-18.0) gm/dl Hct 46.0 (42-50) % MCV 100.9 H (78-100) fl MCH 32.7 H (26-32) pg MCHC 32.4 (32-36) g/dl RDW 13.6 (11.5-14.0) % Plt Count 231 (150-450) K/mm3 MPV 11.6 H (6-9.5) fl Segmented Neutrophils 66 (36.-66.) % Lymphocytes (Manual) 26 (24-44) % Monocytes (Manual) 6 (0.0-12.0) % Eosinophils (Manual) 2 (0.00-3.0) % Differential Comment NORMAL Platelet Estimate NORMAL (NORMAL) D-Dimer 315.27 (0-500) ng/mL Sodium 141 (136-145) mEq/L Potassium 4.1 (3.5-5.1) mEq/L Chloride 105 (98-107) mEq/L Carbon Dioxide 28.6 (21-32) mEq/L Anion Gap 11.9 (5-15) MEQ/L BUN 14 (9-20) mg/dL Creatinine 0.91 (0.55-1.30) mg/dl Estimated GFR > 60 ML/MIN Glucose 104 (70-110) MG/DL Lactic Acid (0.4-2.0) Calcium 8.5 (8.5-10.1) mg/dL Total Bilirubin 0.40 (0.2-1.0) mg/dL AST 16 (15-37) U/L ALT 17 (12-78) U/L Alkaline Phosphatase 98 (46-116) U/L Troponin I (0.000-0.056) ng/ml NT-Pro-B Natriuret Pep 28 (0-450) pg/ml Serum Total Protein 6.6 (6.4-8.2) gm/dL Albumin 3.5 (3.4-5.0) g/dL Influenza Type A Ag (NEGATIVE) Influenza Type B Ag (NEGATIVE) RSV (PCR) (Negative) - Progress Progress: improved, re-examined Air Movement: good Progress Note: 05/22/17 02:39 discussed results with pt and he wishes DC to f/u PCP rather than admission as he feels fine after his resp treatment at this time - pt advised to f/u PCP and to return meantime if any further concerns or any symptoms such as further shortness of breath or not improving . . Blood Culture(s) Obtained: No Antibiotics given: Yes Counseled pt/family regarding: lab results, diagnosis, need for follow-up, rad results - Departure Time of Disposition: 02:43 Departure Disposition: Home Clinical Impression: Influenza Condition: Good Critical Care Time: No Referrals: HOSPITAL,'S [Primary Care Provider] - Instructions: Chronic Obstructive Pulmonary Disease, Flu, Adult (DC) Additional Instructions: followup with your Dr. return meantime if not improving , further shortness of breath or any other concerns followup with your dr also for the right bundle branch block , which may be normal for some but is new since last year for you. Prescriptions: Azithromycin 250 mg [Zithromax 250 MG TABLET] 250 mg PO ZPACK #6 tablet Oseltamivir 75 mg [Tamiflu 75MG Capsule] 75 mg PO BID #10 cap
[2017-05-22 00:23] LABS: Granulocyte Absolute (ANC) 5.48 (1.4-6.9); Hemoglobin 14.9 gm/dl (12.5-18.0); Mean Cell Volume 100.9 fl (78-100); Mean Corpuscular Hemoglobin 32.7 pg (26-32); Mean Corpuscular Hgb Concent. 32.4 g/dl (32-36); Mean Platelet Volume 11.6 fl (6-9.5); Platelet Count 231 K/mm3 (150-450); Red Blood Count 4.56 M/mm3 (4.1-5.6); Red Cell Distribution Width 13.6 % (11.5-14.0); White Blood Count 9.6 K/mm3 (4.0-10.5)
[2017-05-22] MEDS ORDERED: solu-MEDROL 125 MG ONE (00:34)
[2017-05-22] MEDS ORDERED: Sodium Chloride 0.9% 1000 ML 1,000 ML ONE (00:35)
[2017-05-22 01:04] LABS: ALBUMIN 3.5 g/dL (3.4-5.0); ALKALINE PHOSPHATASE 98 U/L (46-116); ANION GAP 11.9 MEQ/L (5-15); BLOOD UREA NITROGEN 14 mg/dL (9-20); CHLORIDE 105 mEq/L (98-107); Calcium 8.5 mg/dL (8.5-10.1); Carbon Dioxide 28.6 mEq/L (21-32); Creatinine 1 0.91 mg/dl (0.55-1.30); EST GLOMERULAR FILTRATION RATE > 60 ML/MIN; Glucose 104 MG/DL (70-110); NT PRO BNP 28 pg/ml (0-450); Potassium 4.1 mEq/L (3.5-5.1); SGOT/AST 16 U/L (15-37); SGPT/ALT 17 U/L (12-78); SODIUM 141 mEq/L (136-145); Total Protein 6.6 gm/dL (6.4-8.2)
[2017-05-22 02:03] LABS: Eosinophil 2 % (0.00-3.0); Lymphocytes 26 % (24-44); Monocyte 6 % (0.0-12.0); Neutrophils 66 % (36.-66.); Platelet Estimate NORMAL (NORMAL); Total Cells Counted 100
[2017-05-22 02:05] LABS: INFLUENZA A NEGATIVE (NEGATIVE); RESPIRATORY SYNCTIAL VIRUS NEGATIVE (Negative)
[2017-05-22 02:06] LABS: INFLUENZA B POSITIVE (NEGATIVE)
[2017-05-22 02:39] VITALS: O2SAT 97
[2017-05-22] MEDS ORDERED: Tamiflu 75MG Capsule PO ONE ×2 (02:51→03:11)
[2017-05-22] MEDS ORDERED: Zithromax 250 MG TABLET PO ONE (02:51)
[2017-05-22] MEDS ORDERED: Zithromax 250 MG TABLET ONE (03:11)
[2017-05-22 03:36] VITALS: BP 167/70; PULSE 77
--- NOTE | 2017-05-22 09:24 | XRAY ---
Indication: Short of breath. Comparison: August 26, 2016. PA/lateral chest remains hyperinflated with chronic lung markings. No focal infiltrate, consolidation, or large effusion. Heart is not enlarged. Bony thorax intact again with mild osteopenia and degenerative changes. Impression: Stable chest with chronic features.
== END 2017-05-22 03:20 | disposition home or self-care (01) ==
LOC: ED 23:20
DX: J11.1 Influenza due to unidentified influenza virus with other respiratory manifestations (principal)
CPT/HCPCS: 36000; 36415; 71046; 80053; 83605; 83880; 84484; 85025; 85379; 87631; 93005; 93041; 94640; 96360; 99284; J2930; A9270-GY

== ENCOUNTER 2017-07-22 18:37 | Emergency (ER) | payer OTHER, MEDICARE ==
[2017-07-22] MEDS ORDERED: Zofran 4 MG/2 ML VIAL (19:20)
[2017-07-22] MEDS ORDERED: Sodium Chloride 0.9% 1000 ML 1,000 ML (19:20)
[2017-07-22] MEDS ORDERED: Pepcid 20 MG VIAL IV (19:20)
[2017-07-22] MEDS ORDERED: PROTONIX 40 MG IV IV (19:20)
[2017-07-22] MEDS: Sodium Chloride 0.9% 1000 ML 1,000 ML IV (19:35)
[2017-07-22] MEDS: Zofran 4 MG/2 ML VIAL IV (19:36)
[2017-07-22] MEDS: PROTONIX 40 MG IV IV (19:36)
[2017-07-22] MEDS: Pepcid 20 MG VIAL IV (19:37)
[2017-07-22 20:08] LABS: BASOPHIL % 0.2 % (0.0-0.4); Basophil (Absolute #) 0.02 (0-0.4); Eosinophil % 3.3 % (0.00-5.0); Eosinophil (Absolute #) 0.33 (0-0.5); Granulocyte Absolute (ANC) 6.38 (1.4-6.9); Granulocytes % 64.5 % (36.0-66.0); Hematocrit 46.9 % (42-50); Hemoglobin 15.4 gm/dl (12.5-18.0); Lymphocytes % 23.3 % (24.0-44.0); Mean Cell Volume 100.6 fl (78-100); Mean Corpuscular Hgb Concent. 32.8 g/dl (32-36); Monocyte (Absolute #) 0.86 (0.0-1.3); Monocytes % 8.7 % (0.0-12.0); Platelet Count 241 K/mm3 (150-450); Red Blood Count 4.66 M/mm3 (4.1-5.6); Red Cell Distribution Width 13.5 % (11.5-14.0); White Blood Count 9.9 K/mm3 (4.0-10.5)
[2017-07-22 20:09] LABS: ADD MANUAL DIFF? NO (NO)
[2017-07-22 20:42] LABS: ALBUMIN 4.1 g/dL (3.5-5.0); ALKALINE PHOSPHATASE 98 U/L (38-126); AMYLASE 99 U/L (30-110); ANION GAP 13.8 MEQ/L (5-15); BLOOD UREA NITROGEN 15 mg/dL (9-20); CHLORIDE 100 mmol/L (98-107); Calcium 9.1 mg/dL (8.4-10.2); Carbon Dioxide 29 mmol/L (22-30); Creatinine 1 0.85 mg/dL (0.66-1.25); EST GLOMERULAR FILTRATION RATE > 60.0 ML/MIN; Glucose 110 mg/dL (74-106); LIPASE 153 U/L (23-300); SGOT/AST 23 U/L (17-59); SGPT/ALT 17 U/L (0-50); SODIUM 139 mmol/L (137-145); Total Protein 7.1 g/dL (6.3-8.2)
[2017-07-22 20:56] LABS: TROPONIN < 0.012 ng/mL (0.000-0.034)
== END 2017-07-22 20:53 | disposition home or self-care (01) ==
LOC: ED 18:37
CPT/HCPCS: 36415; 80053; 82150; 83690; 84484; 85025; 96374; 96375; J2405

== ENCOUNTER 2017-07-29 00:34 | Emergency (ER) | payer OTHER, MEDICARE ==
[2017-07-29] MEDS ORDERED: DUONEB 0.5-3 MG/3 ml Neb IH ONE ×2 (00:45→00:53)
[2017-07-29] MEDS ORDERED: BABY ASPIRIN 81 MG CHEW PO ONE (00:46)
--- NOTE | 2017-07-29 00:53 | ERPHSYRPT ---
- History of Present Illness Time Seen by Provider: 07/29/17 00:48 Source: patient Exam Limitations: no limitations Physician History: 77-year-old white male arrives with complaint of shortness of breath all day today beginning with the coughing since last night he has a productive sputum but he cannot state what color is. He states he has chronic pain across the anterior sternal region which has been going on for a week. He has no nausea no vomiting. Past medical history includes peripheral neuropathy, cataracts, glaucoma, coronary artery disease, hyperlipidemia, high blood pressure, emphysema, pneumonia, arthritis, ulcers, chronic bilateral lower extremity pain. Past surgical history includes bleeding ulcer repair, back surgery and neck surgery social history patient states he continues to smoke tobacco. Timing/Duration: yesterday Activities at Onset: none Severity of Dyspnea-Max: none Severity of Dyspnea-Current: moderate Possible Cause: occasional episodes Modifying Factors: Improves With: nothing Associated Symptoms: cough, chest pain/discomfort (pain across the anterior sternal region for 1 week), productive cough, No edema, No fever, No insomnia, No lightheadedness, No wheezing, No weakness, No ankle swelling, No chills, No hemoptysis, No calf pain, No dizziness, No heaviness, No heart racing, No lightheadedness, No leg swelling, No muscle spasms feet, No muscle spasms hands , No painful breathing, No sweating, No tightness, No tingling face International travel in last 2 weeks: No Allergies/Adverse Reactions: No Known Drug Allergies Allergy (Verified 07/29/17 01:26) Home Medications: Furosemide 40 mg [Lasix 40 MG] 40 mg PO DAILY 07/22/17 [History] Abie-3/Dha/Epa/Fish Oil [Fish Oil 1,000 mg Softgel] 2,000 mg PO DAILY 07/22/17 [History] Bupropion HCl 150 mg Sr [Wellbutrin SR 150 MG] 150 mg PO BID 07/29/17 [ History] Losartan Potassium 50 mg [Cozaar 50 MG] 50 mg PO DAILY 07/29/17 [History] Hx Tetanus, Diphtheria Vaccination/Date Given: No Hx Influenza Vaccination/Date Given: Yes Hx Pneumococcal Vaccination/Date Given: Yes - Review of Systems Constitutional: No Fever, No Chills Eyes: No Symptoms Ears, Nose, & Throat: No Symptoms Respiratory: Cough, Dyspnea Cardiac: Chest Pain (pain across the anterior sternal region for 1 week) Abdominal/Gastrointestinal: No Abdominal Pain, No Nausea, No Vomiting, No Diarrhea Genitourinary Symptoms: No Dysuria Musculoskeletal: No Back Pain, No Neck Pain Skin: No Rash Neurological: No Dizziness, No Focal Weakness, No Sensory Changes Psychological: No Symptoms Endocrine: No Symptoms All Other Systems: Reviewed and Negative - Past Medical History Pertinent Past Medical History: Yes Neurological History: Peripheral Neuropathy ENT History: Cataracts, Glaucoma Cardiac History: Coronary Artery Disease, High Cholesterol, Hypertension Respiratory History: COPD, Emphysema, Pneumonia Endocrine Medical History: No Pertinent History Musculoskeletal History: Arthritis GI Medical History: Ulcer History: No Pertinent History Psycho-Social History: No Pertinent History Male Reproductive Disorders: No Pertinent History Other Medical History: pain history with BLE - Past Surgical History Past Surgical History: Yes Neuro Surgical History: No Pertinent History Cardiac: No Pertinent History Respiratory: No Pertinent History Gastrointestinal: Other Genitourinary: No Pertinent History Musculoskeletal: No Pertinent History Male Surgical History: No Pertinent History Other Surgical History: Bleeding ulcer repair, back operations to the lumbar region et neck. - Social History Smoking Status: Current every day smoker How long have you smoked: 64 Exposure to second hand smoke: No Drug Use: none Patient Lives Alone: No - Nursing Vital Signs Nursing Vital Signs: Initial Vital Signs Temperature 98.3 F 07/29/17 00:53 Pulse Rate 78 07/29/17 00:53 Respiratory Rate 22 07/29/17 00:53 Blood Pressure 132/83 07/29/17 00:53 O2 Sat by Pulse Oximetry 92 L 07/29/17 00:53 Pain Scale Pain Intensity 0 - Physical Exam General Appearance: mild distress, other ( well-developed white male in mild distress alert, oriented 3) Eye Exam: PERRL/EOMI Ears, Nose, Throat Exam: hearing grossly normal, normal ENT inspection, normal pharynx Neck Exam: normal inspection, supple Respiratory Exam: diminished breath sounds Cardiovascular/Chest Exam: normal heart sounds, regular rate/rhythm Abdominal/Gastrointestinal Exam: soft, No tenderness, No distention, No mass Extremity Exam: non-tender, normal range of motion, normal inspection, no calf tenderness, no pedal edema Peripheral Pulses Exam: dorsalis-pedis (R): 2+, dorsalis-pedis (L): 2+ Neurologic Exam: alert, oriented x 3, cooperative, wrap turner II-XII nml as tested, sensation nml, No motor deficits Skin Exam: normal color, warm, No dry SpO2 Interpretation: normal (92%), borderline oxygenation Oxygen Delivery: Room Air - Course Nursing assessment & vital signs reviewed: Yes EKG Interpreted by Me: RATE (90 bpm), NORMAL AXIS, Other (EKG, sinus arrhythmia 90 beats per minute, normal axis, complete right bundle-branch block prolonged QRS, no acute ST or T wave changes, compared to May 22, 2017) - Radiology Exams Chest X-ray Interpretation: Reviewed by me (no acute disease process noted) Ordered Tests: Active Orders 24 hr Category Date Time Status Product Assurance Engineer STAT Care 07/29/17 00:45 Active EKG-ER Only STAT Care 07/29/17 00:45 Active IV Insertion STAT Care 07/29/17 00:45 Active Pulse Oximetry (ED) STAT Care 07/29/17 00:45 Active CHEST 1 VIEW (PORTABLE) Stat Exams 07/29/17 00:45 Taken BLOOD CULTURE Stat Lab 07/29/17 01:00 Ordered CBC W DIFF Stat Lab 07/29/17 01:00 Completed CMP Stat Lab 07/29/17 01:00 Completed CULTURE,SPUTUM Stat Lab 07/29/17 02:38 Ordered D-DIMER QUANTITATION Stat Lab 07/29/17 01:00 Completed NT PRO BNP Stat Lab 07/29/17 01:00 Completed PROTIME WITH INR Stat Lab 07/29/17 01:00 Completed PTT Stat Lab 07/29/17 01:00 Completed TROPONIN Q3H Lab 07/29/17 01:00 Completed TROPONIN Q3H Lab 07/29/17 03:45 Ordered TROPONIN Q3H Lab 07/29/17 06:45 Ordered TROPONIN Q3H Lab 07/29/17 09:45 Ordered TROPONIN Q3H Lab 07/29/17 12:45 Ordered VENOUS BLOOD GAS Stat Lab 07/29/17 01:20 Completed Respiratory Nebulizer STAT RT 07/29/17 00:46 Completed Respiratory Nebulizer STAT RT 07/29/17 02:15 Active Medication Summary Discontinued Medications Generic Name Dose Route Start Last Admin Trade Name Freq PRN Reason Stop Dose Admin Albuterol Sulfate 2.5 mg 07/29/17 02:15 07/29/17 02:25 Proventil 2.5 Mg/3 Ml Neb IH 07/29/17 02:16 2.5 mg STAT ONE Administration Albuterol Sulfate Confirm 07/29/17 02:21 Proventil 2.5 Mg/3 Ml Neb Administered 07/29/17 02:22 Dose 2.5 mg IH .STK-MED ONE Albuterol/Ipratropium 3 ml 07/29/17 00:45 07/29/17 00:55 Duoneb 0.5-3 Mg/3 Ml Neb IH 07/29/17 00:46 3 ml STAT ONE Administration Albuterol/Ipratropium Confirm 07/29/17 00:53 Duoneb 0.5-3 Mg/3 Ml Neb Administered 07/29/17 00:54 Dose 3 ml IH .STK-MED ONE Aspirin 324 mg 07/29/17 00:46 07/29/17 01:15 Baby Aspirin 81 Mg Chew PO 07/29/17 00:47 324 mg STAT ONE Administration Aspirin Confirm 07/29/17 01:14 Baby Aspirin 81 Mg Chew Administered 07/29/17 01:15 Dose 324 mg .ROUTE .STK-MED ONE Ceftriaxone Sodium/Dextrose 1 g in 50 mls @ 100 mls/hr 07/29/17 02:11 02:18 Rocephin 1 Gm-D5w 50 Ml Bag IV 07/29/17 02:40 100 mls/hr STAT STA Administration Ceftriaxone Sodium/Dextrose Confirm 07/29/17 02:17 Rocephin 1 Gm-D5w 50 Ml Bag Administered 07/29/17 02:18 Dose 1 g in 50 mls @ ud IV .STK-MED ONE Methylprednisolone Sodium Succinate 125 mg 07/29/17 01:00 07/29/17 01:15 Solu-Medrol 125 Mg IV 07/29/17 01:01 125 mg STAT ONE Administration Methylprednisolone Sodium Succinate Confirm 07/29/17 01:14 Solu-Medrol 125 Mg Administered 07/29/17 01:15 Dose 125 mg .ROUTE .STK-MED ONE Potassium Chloride 40 meq 07/29/17 01:44 07/29/17 01:46 Klor Con 10 Meq PO 04/28/18 01:45 40 meq STAT ONE Administration Potassium Chloride Confirm 07/29/17 01:45 Klor Con 10 Meq Administered 07/29/17 01:46 Dose 40 meq PO .STK-MED ONE Lab/Rad Data: Laboratory Result Diagrams 07/29/17 01:00 07/29/17 01:00 Laboratory Results 07/29/17 07/29/17 07/29/17 Range/Units 01:20 01:00 01:00 WBC (4.0-10.5) K/mm3 RBC (4.1-5.6) M/mm3 Hgb (12.5-18.0) gm/dl Hct (42-50) % MCV (78-100) fl MCH (26-32) pg MCHC (32-36) g/dl RDW (11.5-14.0) % Plt Count (150-450) K/mm3 MPV (6-9.5) fl Gran % (36.0-66.0) % Eos # (Auto) (0-0.5) Absolute Lymphs (auto) (1.0-4.6) Absolute Monos (auto) (0.0-1.3) Lymphocytes % (24.0-44.0) % Monocytes % (0.0-12.0) % Eosinophils % (0.00-5.0) % Basophils % (0.0-0.4) % Absolute Granulocytes (1.4-6.9) Basophils # (0-0.4) PT 13.3 H (8.83-12.87) SECONDS INR 1.19 (0.8-3.0) APTT 32.0 (24.1-36.1) SECONDS D-Dimer 249.54 (215-500) ng/mL pO2/FiO2 Ratio 21.0 % VBG pH 7.43 H (7.32-7.42) VBG pCO2 at Pat Temp 48 (42-55) mm/Hg VBG pO2 at Pat Temp 55 H (25-40) mm/Hg VBG HCO3 31.9 H* (22-28) meq/L VBG O2 Sat (Julia) 91.9 L (95-100) VBG Base Excess 6.2 H (-2.0-2.0) VBG Hemoglobin 16.2 VBG Carboxyhemoglobin 2.7 (0.0-6.9) % T HGB POC Potassium 3.2 L (3.5-5.1) Sodium 142 (137-145) mmol/L Potassium 3.3 L (3.5-5.1) mmol/L Chloride 104 (98-107) mmol/L Carbon Dioxide 29 (22-30) mmol/L Anion Gap 12.0 (5-15) MEQ/L BUN 17 (9-20) mg/dL Creatinine 0.86 (0.66-1.25) mg/dL Estimated GFR > 60.0 ML/MIN Glucose 105 (74-106) mg/dL Calcium 9.0 (8.4-10.2) mg/dL Total Bilirubin 0.70 (0.2-1.3) mg/dL AST 25 (17-59) U/L ALT 21 (0-50) U/L Alkaline Phosphatase 90 (38-126) U/L Troponin I (0.000-0.034) ng/mL NT-Pro-B Natriuret Pep 49.2 (0-1800) pg/mL Serum Total Protein 6.9 (6.3-8.2) g/dL Albumin 4.0 (3.5-5.0) g/dL 07/29/17 07/29/17 Range/Units 01:00 01:00 WBC 9.7 (4.0-10.5) K/mm3 RBC 4.79 (4.1-5.6) M/mm3 Hgb 15.9 (12.5-18.0) gm/dl Hct 48.0 (42-50) % MCV 100.2 H (78-100) fl MCH 33.2 H (26-32) pg MCHC 33.1 (32-36) g/dl RDW 13.8 (11.5-14.0) % Plt Count 228 (150-450) K/mm3 MPV 11.5 H (6-9.5) fl Gran % 60.4 (36.0-66.0) % Eos # (Auto) 0.14 (0-0.5) Absolute Lymphs (auto) 2.26 (1.0-4.6) Absolute Monos (auto) 1.44 H (0.0-1.3) Lymphocytes % 23.2 L (24.0-44.0) % Monocytes % 14.8 H (0.0-12.0) % Eosinophils % 1.4 (0.00-5.0) % Basophils % 0.2 (0.0-0.4) % Absolute Granulocytes 5.87 (1.4-6.9) Basophils # 0.02 (0-0.4) PT (8.83-12.87) SECONDS INR (0.8-3.0) APTT (24.1-36.1) SECONDS D-Dimer (215-500) ng/mL pO2/FiO2 Ratio % VBG pH (7.32-7.42) VBG pCO2 at Pat Temp (42-55) mm/Hg VBG pO2 at Pat Temp (25-40) mm/Hg VBG HCO3 (22-28) meq/L VBG O2 Sat (Julia) (95-100) VBG Base Excess (-2.0-2.0) VBG Hemoglobin VBG Carboxyhemoglobin (0.0-6.9) % T HGB POC Potassium (3.5-5.1) Sodium (137-145) mmol/L Potassium (3.5-5.1) mmol/L Chloride (98-107) mmol/L Carbon Dioxide (22-30) mmol/L Anion Gap (5-15) MEQ/L BUN (9-20) mg/dL Creatinine (0.66-1.25) mg/dL Estimated GFR ML/MIN Glucose (74-106) mg/dL Calcium (8.4-10.2) mg/dL Total Bilirubin (0.2-1.3) mg/dL AST (17-59) U/L ALT (0-50) U/L Alkaline Phosphatase (38-126) U/L Troponin I 0.014 (0.000-0.034) ng/mL NT-Pro-B Natriuret Pep (0-1800) pg/mL Serum Total Protein (6.3-8.2) g/dL Albumin (3.5-5.0) g/dL - Progress Progress: improved Air Movement: fair Progress Note: 07/29/17 02:16 Patient states he is feeling much better. Patient still has a few wheezes. He has received Solu-Medrol, duo neb, Rocephin has been ordered. Labs essentially normal. Will give patient an albuterol treatment. Patient is asking for medication for anxiety patient is on [place] as well as Wellbutrin at home. He really does not appear to be anxious at this time. I've explained to him that I wish to avoid further anxiolytics secondary to fear of respiratory depression. I've offered the patient to stay and have repeat troponin at this time he really doesn't want to and wants to go home. If patient continues to improve and feel well Will consider discharge with tapering steroids, continued albuterol, and Zithromax. 07/29/17 02:42 Patient is feeling better. He wants to go home. Will release patient with tapering dose of prednisone, Zithromax. Patient is to continue albuterol treatments at home. Patient is to follow-up with his family doctor Patient has been advised to quit smoking him. - Departure Time of Disposition: 02:43 Departure Disposition: Home Clinical Impression: COPD with exacerbation, Shortness of breath Condition: Fair Critical Care Time: No Referrals: [facility]OSP[facility],'[facility] [Primary Care Provider] - Instructions: Exacerbation of COPD (DC) Additional Instructions: Return home. Tapering dose of prednisone and Zithromax as directed. Use your albuterol inhaler every 4-6 hours as needed. Follow-up with your family doctor.call and schedule a follow-up appointment. Quit smoking. Return for acute distress or for severe symptoms. Prescriptions: Azithromycin 250 mg [Zithromax 250 MG TABLET] 0 mg PO ZPACK #6 tablet
[2017-07-29] MEDS ORDERED: solu-MEDROL 125 MG IV ONE (01:00)
[2017-07-29 01:12] LABS: BASOPHIL % 0.2 % (0.0-0.4); Basophil (Absolute #) 0.02 (0-0.4); Eosinophil % 1.4 % (0.00-5.0); Eosinophil (Absolute #) 0.14 (0-0.5); Granulocyte Absolute (ANC) 5.87 (1.4-6.9); Granulocytes % 60.4 % (36.0-66.0); Hemoglobin 15.9 gm/dl (12.5-18.0); Lymphocyte (Absolute #) 2.26 (1.0-4.6); Lymphocytes % 23.2 % (24.0-44.0); Mean Cell Volume 100.2 fl (78-100); Mean Corpuscular Hemoglobin 33.2 pg (26-32); Mean Corpuscular Hgb Concent. 33.1 g/dl (32-36); Mean Platelet Volume 11.5 fl (6-9.5); Monocyte (Absolute #) 1.44 (0.0-1.3); Monocytes % 14.8 % (0.0-12.0); Platelet Count 228 K/mm3 (150-450); Red Blood Count 4.79 M/mm3 (4.1-5.6); Red Cell Distribution Width 13.8 % (11.5-14.0); White Blood Count 9.7 K/mm3 (4.0-10.5)
[2017-07-29] MEDS ORDERED: BABY ASPIRIN 81 MG CHEW ONE (01:14)
[2017-07-29] MEDS ORDERED: solu-MEDROL 125 MG ONE (01:14)
[2017-07-29 01:31] LABS: ALKALINE PHOSPHATASE 90 U/L (38-126); BLOOD UREA NITROGEN 17 mg/dL (9-20); CHLORIDE 104 mmol/L (98-107); Carbon Dioxide 29 mmol/L (22-30); Creatinine 1 0.86 mg/dL (0.66-1.25); Glucose 105 mg/dL (74-106); Potassium 3.3 mmol/L (3.5-5.1); SGOT/AST 25 U/L (17-59); SGPT/ALT 21 U/L (0-50); SODIUM 142 mmol/L (137-145); Total Protein 6.9 g/dL (6.3-8.2)
[2017-07-29 01:32] LABS: INR 1.19 (0.8-3.0)
[2017-07-29 01:34] LABS: D-DIMER QUANTITATION 249.54 ng/mL (215-500)
[2017-07-29 01:40] LABS: NT PRO BNP 49.2 pg/mL (0-1800)
[2017-07-29 01:40] LABS: VBG BASE EXCESS 6.2 (-2.0-2.0); VBG CARBOXYHEMOGLOBIN 2.7 % T HGB (0.0-6.9); VBG HCO3- 31.9 meq/L (22-28); VBG HEMOGLOBIN 16.2; VBG O2 SATURATION 91.9 (95-100); VBG POTASSIUM 3.2 (3.5-5.1); VBG pH 7.43 (7.32-7.42)
[2017-07-29] MEDS ORDERED: Klor Con 10 MEQ PO ONE ×2 (01:44→01:45)
[2017-07-29] MEDS ORDERED: ROCEPHIN 1 Gm-D5w 50 ml Bag** 1 G/50 ML IVPB IV STA (02:11)
[2017-07-29] MEDS ORDERED: PROVENTIL 2.5 MG/3 ML NEB IH ONE ×2 (02:15→02:21)
[2017-07-29] MEDS ORDERED: ROCEPHIN 1 Gm-D5w 50 ml Bag** 1 G/50 ML IVPB IV ONE (02:17)
[2017-07-29 02:51] VITALS: BP 150/67; PULSE 76; O2SAT 95
--- NOTE | 2017-07-29 07:27 | XRAY ---
Indication: Short of breath. Comparison: May 22, 2017. Portable apical lordotic chest less inflated today again with chronic lung markings. No focal infiltrate, consolidation, or large effusion. Heart is not enlarged. Bony thorax intact again with mild osteopenia and degenerative changes. Impression: Nonacute chest with chronic features.
== END 2017-07-29 03:02 | disposition home or self-care (01) ==
LOC: ED 00:34
DX: J44.1 Chronic obstructive pulmonary disease with (acute) exacerbation (principal); R07.89 Other chest pain; Z79.899 Other long term (current) drug therapy; I45.10 Unspecified right bundle-branch block
CPT/HCPCS: 36000; 36415; 71045; 80053; 82805; 83880; 84484; 85025; 85379; 85610; 85730; 87040; 87070; 93005; 93041; 94640; 99284; J0696; J2930; A9270-GY

== ENCOUNTER 2017-09-19 12:17 | Observation (INO) | payer MEDICARE, OTHER ==
--- NOTE | 2017-09-19 12:34 | ERPHSYRPT ---
- History of Present Illness Time Seen by Provider: 09/19/17 12:25 Historian: patient Exam Limitations: no limitations Physician History: Patient is a 77-year-old male with family complaining of central chest tightness in the upper abdomen and in the lower chest that began at 3:30 this morning. The pain waxes and wanes. At its most intense he rates it as moderate and at this time it is low. He was nauseated. He was short of breath and he had cold sweats. [facility]. He called the [facility] this morning and they requested that he be seen in the ER. His past medical history is significant for hypertension, GERD, and COPD. Timing/Duration: today, hour(s) (10), intermittent, sudden Activities at Onset: none Quality: tightness Location: substernal Chest Pain Radiation: no radiation Severity of Pain-Max: moderate Severity of Pain-Current: mild Modifying Factors: Improves With: nothing Associated Symptoms: nausea, shortness of breath, diaphoresis Prior Chest Pain/Cardiac Workup: no prior chest pain Nitro Today/Relief: 0.4 mg x 1, provided by ED Aspirin Treatment Today: 81 mg x 4, provided by ED Allergies/Adverse Reactions: No Known Drug Allergies Allergy (Verified 09/19/17 12:31) Home Medications: Furosemide 40 mg [Lasix 40 MG] 40 mg PO DAILY 07/22/17 [History] Barron-3/Dha/Epa/Fish Oil [Fish Oil 1,000 mg Softgel] 2,000 mg PO DAILY 07/22/17 [History] Bupropion HCl 150 mg Sr [Wellbutrin SR 150 MG] 150 mg PO BID 07/29/17 [ History] Losartan Potassium 50 mg [Cozaar 50 MG] 50 mg PO DAILY 07/29/17 [History] Hx Tetanus, Diphtheria Vaccination/Date Given: No Hx Influenza Vaccination/Date Given: Yes Hx Pneumococcal Vaccination/Date Given: Yes - Review of Systems Constitutional: No Fever, No Chills Eyes: No Symptoms Ears, Nose, & Throat: No Symptoms Respiratory: Dyspnea, No Cough Cardiac: Chest Pain Abdominal/Gastrointestinal: Nausea Genitourinary Symptoms: No Dysuria Musculoskeletal: No Back Pain, No Neck Pain Skin: No Rash Neurological: No Dizziness, No Focal Weakness, No Sensory Changes Psychological: No Symptoms Endocrine: No Symptoms Hematologic/Lymphatic: No Symptoms Immunological/Allergic: No Symptoms All Other Systems: Reviewed and Negative - Past Medical History Pertinent Past Medical History: Yes Neurological History: Peripheral Neuropathy ENT History: Cataracts, Glaucoma Cardiac History: Coronary Artery Disease, High Cholesterol, Hypertension Respiratory History: COPD, Emphysema, Pneumonia Endocrine Medical History: No Pertinent History Musculoskeletal History: Arthritis GI Medical History: Ulcer History: No Pertinent History Psycho-Social History: No Pertinent History Male Reproductive Disorders: No Pertinent History Other Medical History: pain history with BLE - Past Surgical History Past Surgical History: Yes Neuro Surgical History: No Pertinent History Cardiac: No Pertinent History Respiratory: No Pertinent History Gastrointestinal: Other Genitourinary: No Pertinent History Musculoskeletal: No Pertinent History Male Surgical History: No Pertinent History Other Surgical History: Bleeding ulcer repair, back operations to the lumbar region et neck. - Social History Smoking Status: Current every day smoker How long have you smoked: 64 Exposure to second hand smoke: No Drug Use: none Patient Lives Alone: No - Nursing Vital Signs Nursing Vital Signs: Initial Vital Signs Temperature 98 F 09/19/17 12:18 Pulse Rate 76 09/19/17 12:18 Respiratory Rate 18 09/19/17 12:18 Blood Pressure 133/88 09/19/17 12:18 O2 Sat by Pulse Oximetry 96 09/19/17 12:18 Pain Scale Pain Intensity 4 - Physical Exam General Appearance: mild distress Eye Exam: PERRL/EOMI, eyes nml inspection Ears, Nose, Throat Exam: normal ENT inspection, moist mucous membranes Neck Exam: normal inspection, non-tender, supple, full range of motion Respiratory Exam: normal breath sounds, lungs clear, No respiratory distress Cardiovascular Exam: regular rate/rhythm, normal heart sounds Gastrointestinal/Abdomen Exam: soft, No tenderness, No mass Rectal Exam: not done Back Exam: normal inspection, No CVA tenderness, No vertebral tenderness Extremity Exam: normal inspection, normal range of motion Neurologic Exam: alert, oriented x 3, cooperative, normal mood/affect, sensation nml, No motor deficits Skin Exam: normal color, warm, dry SpO2 Interpretation: normal - Course EKG Interpreted by Me: RATE, Sinus Rhythm, NORMAL AXIS, NORMAL INTERVALS, Right Bundle Branch Block, Other (no change compared to EKG from 07/29/17.) - Radiology Exams Chest X-ray Interpretation: Reviewed by me, Teleradiologist Report, Negative (per Dr Randolph) Ordered Tests: Active Orders 24 hr Category Date Time Status Family Counselor STAT Care 09/19/17 12:42 Active EKG-ER Only STAT Care 09/19/17 12:40 Active IV Insertion STAT Care 09/19/17 12:40 Active Oxygen-ED Only NASAL CANNULA 2 lpm Care 09/19/17 12:40 Active CHEST 2 VIEWS (PA AND LAT) Stat Exams 09/19/17 12:41 Completed CBC W DIFF Stat Lab 09/19/17 12:40 Completed CMP Stat Lab 09/19/17 12:40 Completed D-DIMER QUANTITATION Stat Lab 09/19/17 13:10 Completed NT PRO BNP Stat Lab 09/19/17 12:40 Completed PROTIME WITH INR Stat Lab 09/19/17 13:10 Completed PTT Stat Lab 09/19/17 13:10 Completed TROPONIN Q3H Lab 09/19/17 12:45 Completed TROPONIN Q3H Lab 09/19/17 15:45 Ordered TROPONIN Q3H Lab 09/19/17 18:45 Ordered TROPONIN Q3H Lab 09/19/17 21:45 Ordered TROPONIN Q3H Lab 09/20/17 00:45 Ordered Medication Summary Discontinued Medications Generic Name Dose Route Start Last Admin Trade Name Freq PRN Reason Stop Dose Admin Aspirin 324 mg 09/19/17 12:40 09/19/17 12:48 Baby Aspirin 81 Mg Chew PO 09/19/17 12:41 324 mg STAT ONE Administration Aspirin Confirm 09/19/17 12:46 Baby Aspirin 81 Mg Chew Administered 09/19/17 12:47 Dose 324 mg .ROUTE .STK-MED ONE Famotidine 20 mg 09/19/17 12:40 09/19/17 12:47 Pepcid 20 Mg Vial IV 09/19/17 12:41 20 mg STAT ONE Administration Famotidine Confirm 09/19/17 12:46 Pepcid 20 Mg Vial Administered 09/19/17 12:47 Dose 20 mg IV .STK-MED ONE Nitroglycerin 0.4 mg 09/19/17 12:40 09/19/17 12:48 Nitrostat 0.4 Mg (Ed) SL 09/19/17 12:41 0.4 mg STAT ONE Administration Nitroglycerin Confirm 09/19/17 12:46 Nitrostat 0.4 Mg (Ed) Administered 09/19/17 12:47 Dose 0.4 mg SL .STK-MED ONE Lab/Rad Data: Laboratory Result Diagrams 09/19/17 12:40 09/19/17 12:40 Laboratory Results 09/19/17 09/19/17 09/19/17 Range/Units 13:10 12:45 12:40 WBC (4.0-10.5) K/mm3 RBC (4.1-5.6) M/mm3 Hgb (12.5-18.0) gm/dl Hct (42-50) % MCV (78-100) fl MCH (26-32) pg MCHC (32-36) g/dl RDW (11.5-14.0) % Plt Count (150-450) K/mm3 MPV (6-9.5) fl Gran % (36.0-66.0) % Eos # (Auto) (0-0.5) Absolute Lymphs (auto) (1.0-4.6) Absolute Monos (auto) (0.0-1.3) Lymphocytes % (24.0-44.0) % Monocytes % (0.0-12.0) % Eosinophils % (0.00-5.0) % Basophils % (0.0-0.4) % Absolute Granulocytes (1.4-6.9) Basophils # (0-0.4) PT 13.4 H (8.83-12.87) SECONDS INR 1.15 (0.8-3.0) APTT 31.4 (24.1-36.1) SECONDS D-Dimer 291 (215-500) ng/mL Sodium 141 (137-145) mmol/L Potassium 4.0 (3.5-5.1) mmol/L Chloride 106 (98-107) mmol/L Carbon Dioxide 27 (22-30) mmol/L Anion Gap 11.7 (5-15) MEQ/L BUN 12 (9-20) mg/dL Creatinine 0.79 (0.66-1.25) mg/dL Estimated GFR > 60.0 ML/MIN Glucose 140 H (74-106) mg/dL Calcium 9.0 (8.4-10.2) mg/dL Total Bilirubin 0.60 (0.2-1.3) mg/dL AST 17 (17-59) U/L ALT 15 (0-50) U/L Alkaline Phosphatase 83 (38-126) U/L Troponin I < 0.012 (0.000-0.034) ng/mL NT-Pro-B Natriuret Pep 69.3 (0-1800) pg/mL Serum Total Protein 6.5 (6.3-8.2) g/dL Albumin 3.8 (3.5-5.0) g/dL 09/19/17 Range/Units 12:40 WBC 8.5 (4.0-10.5) K/mm3 RBC 4.37 (4.1-5.6) M/mm3 Hgb 14.8 (12.5-18.0) gm/dl Hct 44.4 (42-50) % MCV 101.6 H (78-100) fl MCH 33.9 H (26-32) pg MCHC 33.3 (32-36) g/dl RDW 13.2 (11.5-14.0) % Plt Count 220 (150-450) K/mm3 MPV 11.9 H (6-9.5) fl Gran % 66.7 H (36.0-66.0) % Eos # (Auto) 0.19 (0-0.5) Absolute Lymphs (auto) 1.86 (1.0-4.6) Absolute Monos (auto) 0.77 (0.0-1.3) Lymphocytes % 21.9 L (24.0-44.0) % Monocytes % 9.1 (0.0-12.0) % Eosinophils % 2.2 (0.00-5.0) % Basophils % 0.1 (0.0-0.4) % Absolute Granulocytes 5.65 (1.4-6.9) Basophils # 0.01 (0-0.4) PT (8.83-12.87) SECONDS INR (0.8-3.0) APTT (24.1-36.1) SECONDS D-Dimer (215-500) ng/mL Sodium (137-145) mmol/L Potassium (3.5-5.1) mmol/L Chloride (98-107) mmol/L Carbon Dioxide (22-30) mmol/L Anion Gap (5-15) MEQ/L BUN (9-20) mg/dL Creatinine (0.66-1.25) mg/dL Estimated GFR ML/MIN Glucose (74-106) mg/dL Calcium (8.4-10.2) mg/dL Total Bilirubin (0.2-1.3) mg/dL AST (17-59) U/L ALT (0-50) U/L Alkaline Phosphatase (38-126) U/L Troponin I (0.000-0.034) ng/mL NT-Pro-B Natriuret Pep (0-1800) pg/mL Serum Total Protein (6.3-8.2) g/dL Albumin (3.5-5.0) g/dL - Progress Progress: improved Air Movement: good Progress Note: 09/19/17 13:57 Pt is now pain free after ASA 81 mg X 2 and NG 0.4 mg SL. 09/19/17 14:37 [facility]. Blood Culture(s) Obtained: No Antibiotics given: No Discussed with Dr.: Tanner Will see patient in: hospital (observation) Counseled pt/family regarding: lab results, diagnosis, rad results - Departure Time of Disposition: 14:41 Departure Disposition: Observation (per Dr Hart.) Clinical Impression: Chest pain Condition: Stable Critical Care Time: No Referrals: [facility]OS[facility],'[facility] [Primary Care Provider] -
[2017-09-19] MEDS ORDERED: Pepcid 20 MG VIAL IV ONE ×2 (12:40→12:46)
[2017-09-19] MEDS ORDERED: Nitrostat 0.4 MG (ED) SL ONE ×2 (12:40→12:46)
[2017-09-19] MEDS ORDERED: BABY ASPIRIN 81 MG CHEW PO ONE (12:40)
[2017-09-19] MEDS ORDERED: BABY ASPIRIN 81 MG CHEW ONE (12:46)
--- NOTE | 2017-09-19 13:04 | XRAY ---
Indication: Chest pain. Comparison: July 29, 2017. PA/lateral chest again hyperinflated with chronic lung markings including minimal bibasilar atelectasis/scarring. No focal infiltrate, consolidation, or large effusion. Heart is not enlarged. Vascularity normal. Bony thorax intact again with mild osteopenia and degenerative changes. Impression: Nonacute hyperinflated chest with chronic features.
[2017-09-19 13:12] LABS: BASOPHIL % 0.1 % (0.0-0.4); Basophil (Absolute #) 0.01 (0-0.4); Eosinophil % 2.2 % (0.00-5.0); Eosinophil (Absolute #) 0.19 (0-0.5); Granulocyte Absolute (ANC) 5.65 (1.4-6.9); Granulocytes % 66.7 % (36.0-66.0); Hematocrit 44.4 % (42-50); Hemoglobin 14.8 gm/dl (12.5-18.0); Lymphocyte (Absolute #) 1.86 (1.0-4.6); Lymphocytes % 21.9 % (24.0-44.0); Mean Cell Volume 101.6 fl (78-100); Mean Corpuscular Hemoglobin 33.9 pg (26-32); Mean Corpuscular Hgb Concent. 33.3 g/dl (32-36); Mean Platelet Volume 11.9 fl (6-9.5); Monocyte (Absolute #) 0.77 (0.0-1.3); Monocytes % 9.1 % (0.0-12.0); Platelet Count 220 K/mm3 (150-450); Red Blood Count 4.37 M/mm3 (4.1-5.6); Red Cell Distribution Width 13.2 % (11.5-14.0); White Blood Count 8.5 K/mm3 (4.0-10.5)
[2017-09-19 13:26] LABS: INR 1.15 (0.8-3.0)
[2017-09-19 13:28] LABS: PTT 31.4 SECONDS (24.1-36.1)
[2017-09-19 13:32] LABS: ALBUMIN 3.8 g/dL (3.5-5.0); ALKALINE PHOSPHATASE 83 U/L (38-126); ANION GAP 11.7 MEQ/L (5-15); BLOOD UREA NITROGEN 12 mg/dL (9-20); CHLORIDE 106 mmol/L (98-107); Carbon Dioxide 27 mmol/L (22-30); Creatinine 1 0.79 mg/dL (0.66-1.25); Glucose 140 mg/dL (74-106); SGOT/AST 17 U/L (17-59); SGPT/ALT 15 U/L (0-50); SODIUM 141 mmol/L (137-145); Total Protein 6.5 g/dL (6.3-8.2)
[2017-09-19 13:41] LABS: NT PRO BNP 69.3 pg/mL (0-1800)
[2017-09-19] MEDS ORDERED: TYLENOL 325 MG PO PRN (14:42)
[2017-09-19] MEDS ORDERED: MAALOX ES 30 ML UNIT DOSE PO PRN (14:42)
[2017-09-19] MEDS ORDERED: MILK OF MAGNESIA 30 ML PO PRN (14:42)
[2017-09-19] MEDS ORDERED: Zofran 4 MG/2 ML VIAL IV PRN (14:42)
[2017-09-19] MEDS ORDERED: Senokot-S Tablet PO PRN (14:42)
[2017-09-19] MEDS ORDERED: Ambien 10 MG PO PRN (20:24)
[2017-09-19] MEDS: PROVENTIL COMMON CANISTER IH SCH (20:35)
[2017-09-19] MEDS: NEURONTIN 300 MG PO SCH (21:33)
[2017-09-19] MEDS: Wellbutrin SR 150 MG PO SCH (21:33)
[2017-09-19] MEDS ORDERED: Protonix 40MG Tablet PO SCH (22:00)
[2017-09-20 01:47] LABS: Risk Ratio 4.2
[2017-09-20] MEDS: PROVENTIL COMMON CANISTER IH SCH (07:04)
[2017-09-20] MEDS ORDERED: PROVENTIL 2.5 MG/3 ML NEB IH PRN (07:08)
[2017-09-20 07:28] VITALS: BP 108/62; PULSE 70; O2SAT 90
--- NOTE | 2017-09-20 08:36 | PCM.SSS ---
History of Present Illness - Chief Complaint Chief Complaint: chest pain for 1-2 days History of Present Illness: Mr.SCANK OLIVAS is a 77 year old malePatient complaining of central chest tightness in the upper abdomen and in the lower chest that began at 3:30 this morning. The pain waxes and wanes. At its most intense he rates it as moderate and at this time it is low. He was nauseated. He was short of breath and he had cold sweats. [facility] He called [facility] this morning and they requested that he be seen in the ER. His past medical history is significant for hypertension, GERD, and COPD.. - Review of Systems Constitutional: No Fever, No Chills Eyes: No Symptoms Ears, Nose, & Throat: No Symptoms Respiratory: No Cough, No Short Of Breath Cardiac: No Chest Pain, No Edema, No Syncope Abdominal/Gastrointestinal: No Abdominal Pain, No Nausea, No Vomiting, No Diarrhea Genitourinary Symptoms: No Dysuria Musculoskeletal: No Back Pain, No Neck Pain Skin: No Rash Neurological: No Dizziness, No Focal Weakness, No Sensory Changes Psychological: No Symptoms Endocrine: No Symptoms Hematologic/Lymphatic: No Symptoms Immunological/Allergic: No Symptoms Medications & Allergies Home Medications: Home Medication List Furosemide 40 mg [Lasix 40 MG] 40 mg PO DAILY 07/22/17 [History Confirmed 09/19/17] Banco-3/Dha/Epa/Fish Oil [Fish Oil 1,000 mg Softgel] 2,000 mg PO DAILY 07/22/17 [History Confirmed 09/19/17] PANTOPRAZOLE 40 mg Tablet [Protonix 40MG Tablet] 40 mg PO QPM #30 tab [Rx Confirmed 09/19/17] Bupropion HCl 150 mg Sr [Wellbutrin SR 150 MG] 150 mg PO BID 07/29/17 [ History Confirmed 09/19/17] Losartan Potassium 50 mg [Cozaar 50 MG] 50 mg PO DAILY 07/29/17 [History Confirmed 09/19/17] Albuterol 2.5 mg/3 ml Neb [Proventil 2.5 mg/3 ml Neb] 2.5 mg IH Q4HPRN PRN 09/19/17 [History Confirmed 09/19/17] Albuterol Common Canister [Proventil Common Canister] 2 puff IH TID [History Confirmed 09/19/17] Gabapentin [Neurontin] 300 mg PO TID 09/19/17 [History Confirmed 09/19/17] Timolol [Betimol] 1 drop OP DAILY 09/19/17 [History Confirmed 09/19/17] Zolpidem Tartrate 10 mg [Ambien 10 MG] 1 tab PO HS PRN PRN 09/19/17 [ History Confirmed 09/19/17] Allergies/Adverse Reactions: Allergies Allergy/AdvReac Type Severity Reaction Status Date / Time No Known Drug Allergies Allergy Verified 09/19/17 15:10 - Past Medical History Past Medical History: Yes Neurological History: Peripheral Neuropathy ENT History: Cataracts, Glaucoma Cardiac History: Coronary Artery Disease, High Cholesterol, Hypertension Respiratory History: COPD, Pneumonia Endocrine Medical History: No Pertinent History Musculoskelatal History: Arthritis GI Medical History: Ulcer History: No Pertinent History Pyscho-Social History: No Pertinent History Male Reproductive Disorders: No Pertinent History Comment: pain history with BLE - Past Surgical History Past Surgical History: Yes Neuro Surgical History: No Pertinent History Cardiac History: No Pertinent History Respiratory Surgery: No Pertinent History GI Surgical History: Other Genitourinary Surgical Hx: No Pertinent History Musculskeletal Surgical Hx: No Pertinent History Male Surgical History: No Pertinent History Other Surgical History: Bleeding ulcer repair, back operations to the lumbar region et neck. - Social History Smoking Status: Current every day smoker How long have you smoked: 64 Exposure to second hand smoke: No Alcohol: None Drug Use: none - Physical Exam Vital Signs: Vital Signs - 24 hr Temp Pulse Pulse Resp BP Pulse Ox 09/20/17 07:27 98.7 F 70 20 108/62 90 L 09/20/17 07:04 79 18 92 L 09/20/17 04:00 98.0 F 80 18 110/61 93 L 09/20/17 00:00 98.9 F 83 17 134/63 93 L 09/19/17 20:45 68 18 93 L 09/19/17 20:00 98.0 F 77 16 146/73 93 L 09/19/17 19:54 98.0 F 77 16 146/73 93 L 09/19/17 15:23 63 63 H 161/77 99 09/19/17 15:21 97.9 F 63 22 161/77 99 09/19/17 15:14 60 20 96 09/19/17 14:09 69 14 110/59 97 09/19/17 12:20 76 09/19/17 12:18 98 F 76 18 133/88 96 Oxygen-Last 24 hours O2 Percentage 2 Liters = 28% O2 Percentage 2 Liters = 28% O2 Percentage 2 Liters = 28% O2 Percentage 2 Liters = 28% General Appearance: no apparent distress, alert Neurologic Exam: alert, oriented x 3, cooperative, normal mood/affect, nml cerebellar function, nml station & gait, sensation nml, No motor deficits Eye Exam: PERRL/EOMI, eyes nml inspection Ears, Nose, Throat Exam: normal ENT inspection, TMs normal, pharynx normal, moist mucous membranes Neck Exam: normal inspection, non-tender, supple, full range of motion Respiratory Exam: normal breath sounds, lungs clear, No respiratory distress Cardiovascular Exam: regular rate/rhythm, normal heart sounds, normal peripheral pulses Gastrointestinal/Abdomen Exam: soft, normal bowel sounds, No tenderness, No mass Back Exam: normal inspection, normal range of motion, No CVA tenderness, No vertebral tenderness Extremity Exam: normal inspection, normal range of motion, pelvis stable Skin Exam: normal color, warm, dry, No rash Lymphatic Exam: No adenopathy Results - Labs Lab/Micro Results: Lab Results-Last 24 Hours 09/19/17 09/19/17 09/19/17 Range/Units 16:22 19:00 21:59 Troponin I < 0.012 < 0.012 < 0.012 (0.000-0.034) ng/mL Triglycerides (30-150) mg/dL Cholesterol (50-200) mg/dL LDL Cholesterol (30-100) mg/dL HDL Cholesterol (40-60) mg/dL Heart Disease Risk Ratio 09/20/17 09/20/17 Range/Units 01:28 01:28 Troponin I < 0.012 (0.000-0.034) ng/mL Triglycerides 111 (30-150) mg/dL Cholesterol 162 (50-200) mg/dL LDL Cholesterol 93 (30-100) mg/dL HDL Cholesterol 39 L (40-60) mg/dL Heart Disease Risk Ratio 4.2 - Other Procedures and Tests Respiratory Therapy 09/19/17 15:43 Oxygen NASAL CANNULA 2 lpm 09/19/17 19:00 Respiratory MDI TID 09/20/17 07:53 Respiratory Nebulizer 09/21/17 05:00 EKG ONCE 09/22/17 05:00 EKG ONCE Assessment/Plan (1) Chest pain Current Visit: Yes Status: Acute Qualifiers: Chest pain type: unspecified Qualified Code(s): R07.9 - Chest pain, unspecified Code(s): R07.9 - CHEST PAIN, UNSPECIFIED (2) Bronchitis Current Visit: Yes Status: Acute Code(s): J40 - BRONCHITIS, NOT SPECIFIED ACUTE OR CHRONIC Hospital Summary - Hospital Course Hospital Course: Chief Complaint Diagnosis chest pain Allergies Allergy/AdvReac Type Severity Reaction Status Date / Time No Known Drug Allergies Allergy Verified 09/19/17 15:10 Vital Signs (Last 24 hours) Temp Pulse Pulse Resp BP Pulse Ox 09/20/17 07:27 98.7 F 70 20 108/62 90 L 09/20/17 07:04 79 18 92 L 09/20/17 04:00 98.0 F 80 18 110/61 93 L 09/20/17 00:00 98.9 F 83 17 134/63 93 L 09/19/17 20:45 68 18 93 L 09/19/17 20:00 98.0 F 77 16 146/73 93 L 09/19/17 19:54 98.0 F 77 16 146/73 93 L 09/19/17 15:23 63 63 H 161/77 99 09/19/17 15:21 97.9 F 63 22 161/77 99 09/19/17 15:14 60 20 96 09/19/17 14:09 69 14 110/59 97 09/19/17 12:20 76 09/19/17 12:18 98 F 76 18 133/88 96 Home Medications Medication Instructions Recorded Confirmed Last Taken Type Albuterol 2.5 mg/3 ml Neb 2.5 mg IH Q4HPRN PRN 09/19/17 09/19/17 07/20/17 History [Proventil 2.5 mg/3 ml Neb] Albuterol Common Canister 2 puff IH TID 09/19/17 09/19/17 09/19/17 History [Proventil Common Canister] Gabapentin [Neurontin] 300 mg PO TID 09/19/17 09/19/17 09/19/17 History Timolol [Betimol] 1 drop OP DAILY 09/19/17 09/19/17 09/19/17 History Zolpidem Tartrate 10 mg [Ambien 1 tab PO HS PRN PRN 09/19/17 09/19/17 Unknown History 10 MG] Current Medications Generic Name Dose Route Start Last Admin Trade Name Freq PRN Reason Stop Dose Admin Acetaminophen 650 mg 09/19/17 14:42 09/19/17 21:32 Tylenol 325 Mg PO 10/19/17 14:41 650 mg Q4H PRN PRN Administration PAIN AND/OR FEVER Al Hydrox/Mg Hydrox/Simethicone 30 ml 09/19/17 14:42 Maalox Es 30 Ml Unit Dose PO 10/19/17 14:41 Q4H PRN PRN INDIGESTION Albuterol Sulfate 2 puff 09/19/17 19:00 09/20/17 07:04 Proventil Common Canister IH 10/19/17 18:59 2 puff TIDRT GARETT Administration Albuterol Sulfate 2.5 mg 09/20/17 07:08 Proventil 2.5 Mg/3 Ml Neb IH 10/20/17 07:07 Q4HPRN PRN COPD Aspirin 325 mg 09/20/17 10:00 Ecotrin 325 Mg PO 10/20/17 09:59 DAILY GARETT Bupropion HCl 150 mg 09/19/17 22:00 09/19/17 21:33 Wellbutrin Sr 150 Mg PO 10/19/17 21:59 150 mg BID GARETT Administration Fish Oil 2,000 mg 09/20/17 10:00 Fish Oil 1,000 Mg Capsule PO 10/20/17 09:59 DAILY GARETT Furosemide 40 mg 09/20/17 10:00 Lasix 40 Mg PO 10/20/17 09:59 DAILY GARETT Gabapentin 300 mg 09/19/17 22:00 09/19/17 21:33 Neurontin 300 Mg PO 10/19/17 21:59 300 mg TID GARETT Administration Losartan Potassium 50 mg 09/20/17 10:00 Cozaar 50 Mg PO 10/20/17 09:59 DAILY GARETT Magnesium Hydroxide 30 - 60 ml 09/19/17 14:42 Milk Of Magnesia 30 Ml PO 10/19/17 14:41 QDP PRN CONSTIPATION Ondansetron HCl 4 mg 09/19/17 14:42 09/19/17 17:48 Zofran 4 Mg/2 Ml Vial IV 10/19/17 14:41 4 mg Q4H PRN PRN Administration NAUSEA/VOMITING Pantoprazole Sodium 40 mg 09/19/17 22:00 09/19/17 21:34 Protonix 40mg Tablet PO 10/19/17 21:59 40 mg QHS GARETT Administration Senna/Docusate Sodium 2 udtab 09/19/17 14:42 Senokot-S Tablet PO 10/19/17 14:41 BID PRN PRN CONSTIPATION Timolol Maleate 0 ml 09/20/17 10:00 Timoptic 0.5% 5 Ml Ophthalmic OP 10/20/17 09:59 DAILY GARETT Zolpidem Tartrate 10 mg 09/19/17 20:24 09/19/17 21:33 Ambien 10 Mg PO 10/19/17 20:23 10 mg HS PRN PRN Administration INSOMNIA Discontinued Medications Generic Name Dose Route Start Last Admin Trade Name Freq PRN Reason Stop Dose Admin Aspirin 324 mg 09/19/17 12:40 09/19/17 12:48 Baby Aspirin 81 Mg Chew PO 09/19/17 12:41 324 mg STAT ONE Administration Aspirin Confirm 09/19/17 12:46 Baby Aspirin 81 Mg Chew Administered 09/19/17 12:47 Dose 324 mg .ROUTE .STK-MED ONE Famotidine 20 mg 09/19/17 12:40 09/19/17 12:47 Pepcid 20 Mg Vial IV 09/19/17 12:41 20 mg STAT ONE Administration Famotidine Confirm 09/19/17 12:46 Pepcid 20 Mg Vial Administered 09/19/17 12:47 Dose 20 mg IV .STK-MED ONE Nitroglycerin 0.4 mg 09/19/17 12:40 09/19/17 12:48 Nitrostat 0.4 Mg (Ed) SL 09/19/17 12:41 0.4 mg STAT ONE Administration Nitroglycerin Confirm 09/19/17 12:46 Nitrostat 0.4 Mg (Ed) Administered 09/19/17 12:47 Dose 0.4 mg SL .STK-MED ONE Intake & Output (Last 24 hours) 09/17/17 09/18/17 09/19/17 09/20/17 11:59 11:59 11:59 11:59 Intake Total 1200 Output Total 700 Balance 500 Weight 100.7 kg Laboratory Results (Last 24 hours) 09/20/17 09/20/17 09/19/17 01:28 01:28 21:59 WBC RBC Hgb Hct MCV MCH MCHC RDW Plt Count MPV Gran % Eos # (Auto) Absolute Lymphs (auto) Absolute Monos (auto) Lymphocytes % Monocytes % Eosinophils % Basophils % Absolute Granulocytes Basophils # PT INR APTT D-Dimer Sodium Potassium Chloride Carbon Dioxide Anion Gap BUN Creatinine Estimated GFR Glucose Calcium Total Bilirubin AST ALT Alkaline Phosphatase Troponin I < 0.012 < 0.012 NT-Pro-B Natriuret Pep Serum Total Protein Albumin Triglycerides 111 Cholesterol 162 LDL Cholesterol 93 HDL Cholesterol 39 L Heart Disease Risk Ratio 4.2 09/19/17 09/19/17 09/19/17 19:00 16:22 13:10 WBC RBC Hgb Hct MCV MCH MCHC RDW Plt Count MPV Gran % Eos # (Auto) Absolute Lymphs (auto) Absolute Monos (auto) Lymphocytes % Monocytes % Eosinophils % Basophils % Absolute Granulocytes Basophils # PT 13.4 H INR 1.15 APTT 31.4 D-Dimer 291 Sodium Potassium Chloride Carbon Dioxide Anion Gap BUN Creatinine Estimated GFR Glucose Calcium Total Bilirubin AST ALT Alkaline Phosphatase Troponin I < 0.012 < 0.012 NT-Pro-B Natriuret Pep Serum Total Protein Albumin Triglycerides Cholesterol LDL Cholesterol HDL Cholesterol Heart Disease Risk Ratio 09/19/17 09/19/17 09/19/17 12:45 12:40 12:40 WBC 8.5 RBC 4.37 Hgb 14.8 Hct 44.4 MCV 101.6 H MCH 33.9 H MCHC 33.3 RDW 13.2 Plt Count 220 MPV 11.9 H Gran % 66.7 H Eos # (Auto) 0.19 Absolute Lymphs (auto) 1.86 Absolute Monos (auto) 0.77 Lymphocytes % 21.9 L Monocytes % 9.1 Eosinophils % 2.2 Basophils % 0.1 Absolute Granulocytes 5.65 Basophils # 0.01 PT INR APTT D-Dimer Sodium 141 Potassium 4.0 Chloride 106 Carbon Dioxide 27 Anion Gap 11.7 BUN 12 Creatinine 0.79 Estimated GFR > 60.0 Glucose 140 H Calcium 9.0 Total Bilirubin 0.60 AST 17 ALT 15 Alkaline Phosphatase 83 Troponin I < 0.012 NT-Pro-B Natriuret Pep 69.3 Serum Total Protein 6.5 Albumin 3.8 Triglycerides Cholesterol LDL Cholesterol HDL Cholesterol Heart Disease Risk Ratio Orders (Last 24 hours) Category Date Time Status Bedrest with BRP/BSC ROUTINE Activity 09/19/17 14:42 Active Community Planner STAT Care 09/19/17 12:42 Active Code Status Order ROUTINE Care 09/19/17 14:42 Active EKG-ER Only STAT Care 09/19/17 12:40 Active IV Care Q6H Care 09/19/17 14:42 Completed IV Insertion STAT Care 09/19/17 12:40 Active Implement Chest Pain Pathway ROUTINE Care 09/19/17 14:42 Active Oxygen-ED Only NASAL CANNULA 2 lpm Care 09/19/17 12:[address] in Observation ROUTINE Care 09/19/17 14:42 Active Kory Valenzuela, Apply ROUTINE Care 09/19/17 14:42 Active Telemetry ROUTINE Care 09/19/17 14:42 Active Weight,Daily 0600 Care 09/19/17 14:42 Active Lens Grinder And Polisher/Discharge Plan ROUTINE Cons 09/19/17 15:39 Active Cardiac Diet Diet 09/19/17 Dinner Active CHEST 2 VIEWS (PA AND LAT) Stat Exams 09/19/17 12:41 Completed CBC W DIFF Stat Lab 09/19/17 12:40 Completed CMP Stat Lab 09/19/17 12:40 Completed D-DIMER QUANTITATION Stat Lab 09/19/17 13:10 Completed LIPID PROFILE AM.LAB Lab 09/20/17 01:28 Completed NT PRO BNP Stat Lab 09/19/17 12:40 Completed PROTIME WITH INR Stat Lab 09/19/17 13:10 Completed PTT Stat Lab 09/19/17 13:10 Completed TROPONIN Q3H Lab 09/19/17 12:45 Completed TROPONIN Q3H Lab 09/19/17 16:22 Completed TROPONIN Q3H Lab 09/19/17 19:00 Completed TROPONIN Q3H Lab 09/19/17 21:59 Completed TROPONIN Q3H Lab 09/20/17 01:28 Completed Acetaminophen 325 mg [Tylenol 325 mg] Med 09/19/17 14:42 Active 650 mg PO Q4H PRN PRN Albuterol 2.5 mg/3 ml Neb [Proventil 2.5 mg/3 ml Neb Med 09/20/17 07:08 Active ] 2.5 mg IH Q4HPRN PRN Albuterol Common Canister [Proventil Common Canister Med 09/19/17 19:00 Active ] 2 puff IH TIDRT Aspirin 81 gm Chew [Baby Aspirin 81 mg Chew] Med 09/19/17 12:46 Discontinued 324 mg .ROUTE .STK-MED ONE Aspirin 81 gm Chew [Baby Aspirin 81 mg Chew] Med 09/19/17 12:40 Discontinued 324 mg PO STAT ONE Aspirin EC 325 mg [Ecotrin 325 MG] Med 09/20/17 10:00 Active 325 mg PO DAILY Bupropion HCl 150 mg Sr [Wellbutrin SR 150 MG] Med 09/19/17 22:00 Active 150 mg PO BID Famotidine 20 mg Vial [Pepcid 20 MG VIAL] Med 09/19/17 12:46 Discontinued 20 mg IV .STK-MED ONE Famotidine 20 mg Vial [Pepcid 20 MG VIAL] Med 09/19/17 12:40 Discontinued 20 mg IV STAT ONE Furosemide 40 mg [Lasix 40 MG] Med 09/20/17 10:00 Active 40 mg PO DAILY Gabapentin 300 mg [Neurontin 300 mg] Med 09/19/17 22:00 Active 300 mg PO TID Losartan Potassium 50 mg [Cozaar 50 MG] Med 09/20/17 10:00 Active 50 mg PO DAILY Mag Hydrox/Al Hydrox/Simeth [Maalox Es 30 ml Unit Med 09/19/17 14:42 Active Dose] 30 ml PO Q4H PRN PRN Magnesium Hydroxide 30 ml [Milk of Magnesia 30 ml Med 09/19/17 14:42 Active ] 30 - 60 ml PO QDP PRN Nitroglycerin 0.4 mg (Ed) [Nitrostat 0.4 MG (ED)] Med 09/19/17 12:46 Discontinued 0.4 mg SL .STK-MED ONE Nitroglycerin 0.4 mg (Ed) [Nitrostat 0.4 MG (ED)] Med 09/19/17 12:40 Discontinued 0.4 mg SL STAT ONE Banco-3 Fatty Acids/Fish Oil [Fish Oil 1,000 mg Med 09/20/17 10:00 Active Capsule] 2,000 mg PO DAILY Ondansetron HCl 4 mg/2 ml [Zofran 4 MG/2 ML VIAL] Med 09/19/17 14:42 Active 4 mg IV Q4H PRN PRN PANTOPRAZOLE 40 mg Tablet [Protonix 40MG Tablet] Med 09/19/17 22:00 Active 40 mg PO QHS Senna/Docusate Sodium Tab [Senokot-S Tablet] Med 09/19/17 14:42 Active 2 udtab PO BID PRN PRN Timolol Maleate 0.5% Eye [Timoptic 0.5% 5 ml Med 09/20/17 10:00 Active Ophthalmic] 0 ml OP DAILY Zolpidem Tartrate 10 mg [Ambien 10 MG] Med 09/19/17 20:24 Active 10 mg PO HS PRN PRN EKG ONCE RT 09/19/17 20:20 Completed EKG ONCE RT 09/20/17 05:00 Completed EKG ONCE RT 09/21/17 05:00 Active EKG ONCE RT 09/22/17 05:00 Active EKG Q8HX2,QAMX3,PRN RT 09/19/17 14:42 Completed Oxygen NASAL CANNULA 2 lpm RT 09/19/17 15:43 Active Pulse Oximetry Q4H RT 09/19/17 14:42 Active Respiratory MDI TID RT 09/19/17 19:00 Active Respiratory Nebulizer RT 09/20/17 07:53 Active Smoking Cessation Education ONCE RT 09/19/17 15:39 Completed Patient Care Notes (Last 24 hours) 09/19/17 16:08 Nursing Note by Katheryn Peterson pt doesn't know all of home meds-attempted to call [facility] but the hospital phone lines are down Initialized on 09/19/17 16:08 - END OF NOTE AR ruled out, Patient is doing much better, will discharge him home - Vitals & Intake/Output Vital Signs: Vital Signs Temperature 98.7 F 09/20/17 07:27 Pulse Rate 70 09/20/17 07:27 Respiratory Rate 20 09/20/17 07:27 Blood Pressure 108/62 09/20/17 07:27 O2 Sat by Pulse Oximetry 90 L 09/20/17 07:27 Oxygen-Last Documented O2 Percentage 2 Liters = 28% Intake & Output: Intake & Output 09/17/17 09/18/17 09/19/17 09/20/17 11:59 11:59 11:59 11:59 Intake Total 1200 Output Total 700 Balance 500 Weight 100.7 kg - Lab Result Diagrams: 09/19/17 12:40 09/19/17 12:40 Lab Results-Last 24 Hrs: Lab Results-Last 24 Hours 09/19/17 09/19/17 09/19/17 Range/Units 16:22 19:00 21:59 Troponin I < 0.012 < 0.012 < 0.012 (0.000-0.034) ng/mL Triglycerides (30-150) mg/dL Cholesterol (50-200) mg/dL LDL Cholesterol (30-100) mg/dL HDL Cholesterol (40-60) mg/dL Heart Disease Risk Ratio 09/20/17 09/20/17 Range/Units 01:28 01:28 Troponin I < 0.012 (0.000-0.034) ng/mL Triglycerides 111 (30-150) mg/dL Cholesterol 162 (50-200) mg/dL LDL Cholesterol 93 (30-100) mg/dL HDL Cholesterol 39 L (40-60) mg/dL Heart Disease Risk Ratio 4.2 - Procedures and Test Procedures and Tests throughout Hospitalization: Therapy Orders & Screens 09/19/17 15:39 Smoking Cessation Education ONCE Comment: Diagnosis: chest pain Smoking Status: Current every day smoker How long have you smoked: 64 Have you smoked in the past 12 months: Yes Do you dip or chew tobacco: No 09/19/17 15:43 Oxygen NASAL CANNULA 2 lpm Comment: Diagnosis: chest pain 09/19/17 19:00 Respiratory MDI TID Comment: ALBUTEROL TID Diagnosis: chest pain 09/19/17 20:20 EKG ONCE Comment: Diagnosis: chest pain 09/20/17 05:00 EKG ONCE Comment: Diagnosis: chest pain 09/20/17 07:53 Respiratory Nebulizer Comment: ALBUTEROL Q4PRN Diagnosis: chest pain 09/21/17 05:00 EKG ONCE Comment: Diagnosis: chest pain 09/22/17 05:00 EKG ONCE Comment: Diagnosis: chest pain - Discharge Discharge Date: 09/20/17 Disposition: Home, Self-Care Condition: Stable Prescriptions: No Action Furosemide 40 mg [Lasix 40 MG] 40 mg PO DAILY Banco-3/Dha/Epa/Fish Oil [Fish Oil 1,000 mg Softgel] 2,000 mg PO DAILY PANTOPRAZOLE 40 mg Tablet [Protonix 40MG Tablet] 40 mg PO QPM #30 tab Bupropion HCl 150 mg Sr [Wellbutrin SR 150 MG] 150 mg PO BID Losartan Potassium 50 mg [Cozaar 50 MG] 50 mg PO DAILY Albuterol Common Canister [Proventil Common Canister] 2 puff IH TID Albuterol 2.5 mg/3 ml Neb [Proventil 2.5 mg/3 ml Neb] 2.5 mg IH Q4HPRN PRN PRN Reason: COPD Timolol [Betimol] 1 drop OP DAILY Gabapentin [Neurontin] 300 mg PO TID Zolpidem Tartrate 10 mg [Ambien 10 MG] 1 tab PO HS PRN PRN PRN Reason: Insomnia Follow up with: [facility] [Primary Care Provider] - 1 Week
[2017-09-20] MEDS: Wellbutrin SR 150 MG PO SCH (08:45)
[2017-09-20] MEDS: NEURONTIN 300 MG PO SCH (08:45)
[2017-09-20] MEDS ORDERED: OMEGA PO SCH (10:00)
[2017-09-20] MEDS ORDERED: NON-FORMULARY ITEM (Timolol [Betimol] 1 DROP) OP SCH (10:00)
[2017-09-20] MEDS ORDERED: Lasix 40 MG PO SCH (10:00)
[2017-09-20] MEDS ORDERED: Ecotrin 325 MG PO SCH (10:00)
[2017-09-20] MEDS ORDERED: FISH OIL PO SCH (10:00)
[2017-09-20] MEDS ORDERED: Cozaar 50 MG PO SCH (10:00)
[2017-09-20] MEDS ORDERED: EPA PO SCH (10:00)
[2017-09-20] MEDS ORDERED: DHA PO SCH (10:00)
[2017-09-20] MEDS ORDERED: TIMOPTIC 0.5% 5 ML OPHTHALMIC OP SCH (10:00)
[2017-09-20] MEDS ORDERED: FISH OIL 1,000 MG CAPSULE PO SCH (10:00)
== END 2017-09-20 09:15 | disposition home or self-care (01) ==
LOC: ED 12:17 → MED SURG 15:07
PROVIDERS: ADMIT General Practice; ATTEND General Practice
DX: R07.9 Chest pain, unspecified (principal); J40 Bronchitis, not specified as acute or chronic; I10 Essential (primary) hypertension; K21.9 Gastro-esophageal reflux disease without esophagitis; G62.9 Polyneuropathy, unspecified; I25.10 Atherosclerotic heart disease of native coronary artery without angina pectoris; E78.00 Pure hypercholesterolemia, unspecified; M19.90 Unspecified osteoarthritis, unspecified site
CPT/HCPCS: 36000; 36415; 71046; 80053; 80061; 83721; 83880; 84484; 85025; 85379; 85610; 85730; 93005; 93041; 93268; 94150; 94640; 94760; 96374; 99285; J2405; A9270-GY; G0378

== ENCOUNTER 2017-12-20 16:51 | Emergency (ER) | payer OTHER ==
[2017-12-20 17:10] VITALS: O2SAT 94
[2017-12-20] MEDS ORDERED: MOTRIN 600 MG PO ONE (17:16)
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
[2017-12-20] MEDS ORDERED: MOTRIN 600 MG ONE (18:39)
[2017-12-20 19:20] VITALS: BP 149/51; PULSE 65
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
== END 2017-12-20 19:15 | disposition home or self-care (01) ==
LOC: ED 16:51
DX: S39.012A Strain of muscle, fascia and tendon of lower back, initial encounter (principal); M54.5 Low back pain; V57.5XXA Driver of pick-up truck or van injured in collision with fixed or stationary object in traffic accident, initial encounter; Z79.899 Other long term (current) drug therapy
CPT/HCPCS: 72110; 99284; A9270-GY

== ENCOUNTER 2018-01-23 12:31 | Emergency (ER) | payer OTHER ==
--- NOTE | 2018-01-23 13:09 | ERPHSYRPT ---
- History of Present Illness Time Seen by Provider: 01/23/18 13:08 Historian: patient, family Exam Limitations: no limitations Patient Subjective Stated Complaint: states abd pain for four days. also having nausea. denies v/d. Triage Nursing Assessment: ambulated to room per self. skin w/d, color normal. resp nonlabored. abd tight, distended. normal bowel sounds. Physician History: 77 y/o white male with h/o pudz surgery in distant past presents with 4 day h/o abd pain and associated nausea. no diarrhea. no cp and no soa. Timing/Duration: day(s) (4) Activities at Onset: none Quality: pressure, tightness Abdominal Pain Onset Location: RLQ, LLQ Pain Radiation: no radiation Severity of Pain-Max: mild Severity of Pain-Current: mild Modifying Factors: Improves With: nothing. Worsens With: vomiting Associated Symptoms: nausea, No diarrhea, No vomiting, No weakness Allergies/Adverse Reactions: No Known Drug Allergies Allergy (Verified 01/23/18 12:53) Home Medications: Furosemide 40 mg [Lasix 40 MG] 40 mg PO DAILY 07/22/17 [History] [place]-3/Dha/Epa/Fish Oil [Fish Oil 1,000 mg Softgel] 2,000 mg PO DAILY 07/22/17 [History] Bupropion HCl 150 mg Sr [Wellbutrin SR 150 MG] 150 mg PO BID 07/29/17 [ History] Losartan Potassium 50 mg [Cozaar 50 MG] 50 mg PO DAILY 07/29/17 [History] Albuterol 2.5 mg/3 ml Neb [Proventil 2.5 mg/3 ml Neb] 2.5 mg IH Q4HPRN PRN 09/19/17 [History] Albuterol Common Canister [Proventil Common Canister] 2 puff IH TID [History] Gabapentin [Neurontin] 300 mg PO TID 09/19/17 [History] Timolol [Betimol] 1 drop OP DAILY 09/19/17 [History] Zolpidem Tartrate 10 mg [Ambien 10 MG] 1 tab PO HS PRN PRN 09/19/17 [History ] Hx Tetanus, Diphtheria Vaccination/Date Given: No Hx Influenza Vaccination/Date Given: No Hx Pneumococcal Vaccination/Date Given: Yes - Review of Systems Constitutional: No Symptoms Eyes: No Symptoms Ears, Nose, & Throat: No Symptoms Respiratory: No Symptoms Cardiac: No Symptoms Abdominal/Gastrointestinal: No Symptoms Genitourinary Symptoms: No Symptoms Musculoskeletal: No Symptoms Skin: No Symptoms Neurological: No Symptoms Psychological: No Symptoms Endocrine: No Symptoms Hematologic/Lymphatic: No Symptoms Immunological/Allergic: No Symptoms All Other Systems: Reviewed and Negative - Past Medical History Pertinent Past Medical History: Yes Neurological History: Peripheral Neuropathy ENT History: Cataracts, Glaucoma Cardiac History: Coronary Artery Disease, High Cholesterol, Hypertension Respiratory History: COPD, Pneumonia Endocrine Medical History: No Pertinent History Musculoskeletal History: Arthritis GI Medical History: Ulcer History: No Pertinent History Psycho-Social History: No Pertinent History Male Reproductive Disorders: No Pertinent History Other Medical History: pain history with BLE - Past Surgical History Past Surgical History: Yes Neuro Surgical History: No Pertinent History Cardiac: No Pertinent History Respiratory: No Pertinent History Gastrointestinal: Other Genitourinary: No Pertinent History Musculoskeletal: No Pertinent History Male Surgical History: No Pertinent History Other Surgical History: Bleeding ulcer repair, back operations to the lumbar region et neck. - Social History Smoking Status: Current every day smoker How long have you smoked: numerous Exposure to second hand smoke: No Alcohol Use: Socially Drug Use: none Patient Lives Alone: No Significant Family History: no pertinent family hx - Nursing Vital Signs Nursing Vital Signs: Initial Vital Signs Temperature 98.5 F 01/23/18 12:48 Pulse Rate 91 H 01/23/18 12:48 Respiratory Rate 18 01/23/18 12:48 Blood Pressure 159/103 01/23/18 12:48 O2 Sat by Pulse Oximetry 96 01/23/18 12:48 Pain Scale Pain Intensity 2 - Physical Exam General Appearance: mild distress, alert, anxiety Eye Exam: PERRL/EOMI Ears, Nose, Throat Exam: normal ENT inspection, moist mucous membranes Neck Exam: normal inspection, non-tender, supple, full range of motion Respiratory Exam: normal breath sounds, lungs clear, airway intact, No chest tenderness, No respiratory distress, No accessory muscle use, No rhonchi, No wheezing, No stridor Cardiovascular Exam: regular rate/rhythm, normal heart sounds, normal peripheral pulses Gastrointestinal/Abdomen Exam: soft, normal bowel sounds, tenderness (mild diffuse), No guarding, No rebound Rectal Exam: not done Back Exam: normal inspection, normal range of motion, No CVA tenderness, No vertebral tenderness Extremity Exam: normal inspection, normal range of motion, pelvis stable Neurologic Exam: alert, oriented x 3, cooperative, 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 tested Skin Exam: normal color, warm, dry Lymphatic Exam: No adenopathy SpO2 Interpretation: normal SpO2: 96 Oxygen Delivery: Room Air - Course Nursing assessment & vital signs reviewed: Yes Ordered Tests: Active Orders 24 hr Category Date Time Status IV Insertion STAT Care 01/23/18 13:14 Active OBSTR/ACUTE ABDOMEN SERIES Stat Exams 01/23/18 13:14 Completed AMYLASE Stat Lab 01/23/18 13:55 Completed CBC W DIFF Stat Lab 01/23/18 13:55 Completed CMP Stat Lab 01/23/18 13:55 Completed LIPASE Stat Lab 01/23/18 13:55 Completed Lactic Acid Stat Lab 01/23/18 13:58 Completed UA W/RFX UR CULTURE Stat Lab 01/23/18 15:57 Completed Medication Summary Discontinued Medications Generic Name Dose Route Start Last Admin Trade Name Freq PRN Reason Stop Dose Admin Hydromorphone HCl 1 mg 01/23/18 13:14 01/23/18 13:59 Hydromorphone 1 Mg/Ml Ampule IV 01/23/18 13:15 1 mg STAT ONE Administration Hydromorphone HCl Confirm 01/23/18 13:49 Hydromorphone 1 Mg/Ml Ampule Administered 01/23/18 13:50 Dose 1 mg .ROUTE .STK-MED ONE Sodium Chloride 1,000 mls @ 999 mls/hr 01/23/18 13:14 01/23/18 13:59 Sodium Chloride 0.9% 1000 Ml IV 01/23/18 14:14 999 mls/hr .Q1H1M STA Administration Sodium Chloride Confirm 01/23/18 13:49 Sodium Chloride 0.9% 1000 Ml Administered 01/23/18 13:50 Dose 1,000 mls @ ud .ROUTE .STK-MED ONE Ondansetron HCl 4 mg 01/23/18 13:14 01/23/18 14:00 Zofran 4 Mg/2 Ml Vial IV 01/23/18 13:15 4 mg STAT ONE Administration Ondansetron HCl Confirm 01/23/18 13:49 Zofran 4 Mg/2 Ml Vial Administered 01/23/18 13:50 Dose 4 mg .ROUTE .STK-MED ONE Lab/Rad Data: Laboratory Result Diagrams 01/23/18 13:55 01/23/18 13:55 Laboratory Results 01/23/18 01/23/18 01/23/18 Range/Units 15:57 13:58 13:55 WBC (4.0-10.5) K/mm3 RBC (4.1-5.6) M/mm3 Hgb (12.5-18.0) gm/dl Hct (42-50) % MCV (78-100) fl MCH (26-32) pg MCHC (32-36) g/dl RDW (11.5-14.0) % Plt Count (150-450) K/mm3 MPV (6-9.5) fl Gran % (36.0-66.0) % Eos # (Auto) (0-0.5) Absolute Lymphs (auto) (1.0-4.6) Absolute Monos (auto) (0.0-1.3) Lymphocytes % (24.0-44.0) % Monocytes % (0.0-12.0) % Eosinophils % (0.00-5.0) % Basophils % (0.0-0.4) % Absolute Granulocytes (1.4-6.9) Basophils # (0-0.4) Sodium 140 (137-145) mmol/L Potassium 4.1 (3.5-5.1) mmol/L Chloride 103 (98-107) mmol/L Carbon Dioxide 28 (22-30) mmol/L Anion Gap 12.9 (5-15) MEQ/L BUN 13 (9-20) mg/dL Creatinine 0.79 (0.66-1.25) mg/dL Estimated GFR > 60.0 ML/MIN Glucose 126 H (74-106) mg/dL Lactic Acid 1.0 (0.4-2.0) Calcium 9.5 (8.4-10.2) mg/dL Total Bilirubin 1.10 (0.2-1.3) mg/dL AST 23 (17-59) U/L ALT 16 (0-50) U/L Alkaline Phosphatase 103 (38-126) U/L Serum Total Protein 7.4 (6.3-8.2) g/dL Albumin 4.4 (3.5-5.0) g/dL Amylase 90 (30-110) U/L Lipase 102 (23-300) U/L Urine Color DARK YELLOW (YELLOW) Urine Appearance CLEAR (CLEAR) Urine pH 6.0 (5-6) Ur Specific [place] 1.025 (1.005-1.025) Urine Protein 30 (Negative) Urine Ketones NEGATIVE (NEGATIVE) Urine Blood NEGATIVE (0-5) Frankie/ul Urine Nitrite NEGATIVE (NEGATIVE) Urine Bilirubin SMALL (NEGATIVE) Urine Urobilinogen 4 (0-1) mg/dL Ur Leukocyte Esterase NEGATIVE (NEGATIVE) Urine WBC (Auto) 0-2 (0-5) /HPF Urine RBC (Auto) 3-5 (0-2) /HPF U Epithel Cells (Auto) RARE (FEW) /HPF Urine Mucus (Auto) SLIGHT (NEGATIVE) /HPF Urine Culture Reflexed NO (NO) Urine Glucose NEGATIVE (NEGATIVE) mg/dL 01/23/18 Range/Units 13:55 WBC 9.3 (4.0-10.5) K/mm3 RBC 5.00 (4.1-5.6) M/mm3 Hgb 16.3 (12.5-18.0) gm/dl Hct 49.8 (42-50) % MCV 99.6 (78-100) fl MCH 32.6 H (26-32) pg MCHC 32.7 (32-36) g/dl RDW 13.8 (11.5-14.0) % Plt Count 257 (150-450) K/mm3 MPV 11.2 H (6-9.5) fl Gran % 67.6 H (36.0-66.0) % Eos # (Auto) 0.13 (0-0.5) Absolute Lymphs (auto) 2.08 (1.0-4.6) Absolute Monos (auto) 0.78 (0.0-1.3) Lymphocytes % 22.4 L (24.0-44.0) % Monocytes % 8.4 (0.0-12.0) % Eosinophils % 1.4 (0.00-5.0) % Basophils % 0.2 (0.0-0.4) % Absolute Granulocytes 6.26 (1.4-6.9) Basophils # 0.02 (0-0.4) Sodium (137-145) mmol/L Potassium (3.5-5.1) mmol/L Chloride (98-107) mmol/L Carbon Dioxide (22-30) mmol/L Anion Gap (5-15) MEQ/L BUN (9-20) mg/dL Creatinine (0.66-1.25) mg/dL Estimated GFR ML/MIN Glucose (74-106) mg/dL Lactic Acid (0.4-2.0) Calcium (8.4-10.2) mg/dL Total Bilirubin (0.2-1.3) mg/dL AST (17-59) U/L ALT (0-50) U/L Alkaline Phosphatase (38-126) U/L Serum Total Protein (6.3-8.2) g/dL Albumin (3.5-5.0) g/dL Amylase (30-110) U/L Lipase (23-300) U/L Urine Color (YELLOW) Urine Appearance (CLEAR) Urine pH (5-6) Ur Specific [place] (1.005-1.025) Urine Protein (Negative) Urine Ketones (NEGATIVE) Urine Blood (0-5) Frankie/ul Urine Nitrite (NEGATIVE) Urine Bilirubin (NEGATIVE) Urine Urobilinogen (0-1) mg/dL Ur Leukocyte Esterase (NEGATIVE) Urine WBC (Auto) (0-5) /HPF Urine RBC (Auto) (0-2) /HPF U Epithel Cells (Auto) (FEW) /HPF Urine Mucus (Auto) (NEGATIVE) /HPF Urine Culture Reflexed (NO) Urine Glucose (NEGATIVE) mg/dL abd and cxr- no acute process. - Progress Progress: improved, re-examined Progress Note: 01/23/18 16:43 pt states he feels much better. - Departure Time of Disposition: 16:43 Departure Disposition: Home Clinical Impression: Abdominal pain Condition: Stable Critical Care Time: No Referrals: [facility]OSP[facility],'[facility] [Primary Care Provider] - Additional Instructions: drink plenty of fluids. follow up with primary doctor for persistent symptoms Prescriptions: Hydrocodone/APAP 5/325 [[place] 5/325 mg] 1 each PO Q12H PRN PRN #6 tablet MDD 2 PRN Reason: Pain
[2018-01-23] MEDS ORDERED: Hydromorphone 1 mg/ml Ampule IV ONE (13:14)
[2018-01-23] MEDS ORDERED: Zofran 4 MG/2 ML VIAL IV ONE (13:14)
[2018-01-23] MEDS ORDERED: Sodium Chloride 0.9% 1000 ML 1,000 ML IV STA (13:14)
[2018-01-23] MEDS ORDERED: Zofran 4 MG/2 ML VIAL ONE (13:49)
[2018-01-23] MEDS ORDERED: Hydromorphone 1 mg/ml Ampule ONE (13:49)
[2018-01-23] MEDS ORDERED: Sodium Chloride 0.9% 1000 ML 1,000 ML ONE (13:49)
--- NOTE | 2018-01-23 13:50 | XRAY ---
Indication: Abdomen pain and nausea. Comparison: Chest exam September 19, 2017. 2 views of the abdomen demonstrates nonspecific nonobstructed bowel gas pattern. No focal bowel dilatation or free air. Solid organs unremarkable. Osseous structures intact with mild osteopenia, moderate multilevel degenerative spondylosis, and mild levoscoliosis. Single frontal chest again demonstrates chronic lung markings with minimal bibasilar atelectasis/scarring and right base calcified granuloma. No focal infiltrate, consolidation, or large effusion. Heart is not enlarged. Bony findings intact again with mild osteopenia and degenerative changes. Impression: Nonacute nonobstructed abdomen. Stable nonacute 1V chest with chronic features.
[2018-01-23 14:04] LABS: BASOPHIL % 0.2 % (0.0-0.4); Basophil (Absolute #) 0.02 (0-0.4); Eosinophil % 1.4 % (0.00-5.0); Eosinophil (Absolute #) 0.13 (0-0.5); Granulocyte Absolute (ANC) 6.26 (1.4-6.9); Granulocytes % 67.6 % (36.0-66.0); Hematocrit 49.8 % (42-50); Hemoglobin 16.3 gm/dl (12.5-18.0); Lymphocyte (Absolute #) 2.08 (1.0-4.6); Lymphocytes % 22.4 % (24.0-44.0); Mean Cell Volume 99.6 fl (78-100); Mean Corpuscular Hemoglobin 32.6 pg (26-32); Mean Corpuscular Hgb Concent. 32.7 g/dl (32-36); Mean Platelet Volume 11.2 fl (6-9.5); Monocyte (Absolute #) 0.78 (0.0-1.3); Monocytes % 8.4 % (0.0-12.0); Platelet Count 257 K/mm3 (150-450); Red Cell Distribution Width 13.8 % (11.5-14.0); White Blood Count 9.3 K/mm3 (4.0-10.5)
[2018-01-23 14:29] LABS: ALBUMIN 4.4 g/dL (3.5-5.0); ALKALINE PHOSPHATASE 103 U/L (38-126); AMYLASE 90 U/L (30-110); ANION GAP 12.9 MEQ/L (5-15); BLOOD UREA NITROGEN 13 mg/dL (9-20); CHLORIDE 103 mmol/L (98-107); Calcium 9.5 mg/dL (8.4-10.2); Carbon Dioxide 28 mmol/L (22-30); Creatinine 1 0.79 mg/dL (0.66-1.25); Glucose 126 mg/dL (74-106); LIPASE 102 U/L (23-300); Potassium 4.1 mmol/L (3.5-5.1); SGOT/AST 23 U/L (17-59); SGPT/ALT 16 U/L (0-50); SODIUM 140 mmol/L (137-145); Total Protein 7.4 g/dL (6.3-8.2)
[2018-01-23 15:39] VITALS: BP 100/90; PULSE 88
[2018-01-23 16:19] LABS: Appearance CLEAR (CLEAR); Bilirubin SMALL (NEGATIVE); Blood NEGATIVE Ery/ul (0-5); Glucose NEGATIVE (NEGATIVE); Ketones NEGATIVE (NEGATIVE); Leukocyte Esterase NEGATIVE (NEGATIVE); Nitrite NEGATIVE (NEGATIVE); Protein,Urine Dip 30 (Negative); Specific Gravity 1.025 (1.005-1.025); Urobilinogen 4 mg/dL (0-1)
[2018-01-23 16:45] VITALS: O2SAT 96
== END 2018-01-23 17:00 | disposition home or self-care (01) ==
LOC: ED 12:31
DX: R10.31 Right lower quadrant pain (principal); R10.32 Left lower quadrant pain; R11.0 Nausea; Z79.899 Other long term (current) drug therapy
CPT/HCPCS: 36000; 36415; 74022; 80053; 81001; 82150; 83605; 83690; 85025; 96360; 96374; 96375; 99284; J1170; J2405

== ENCOUNTER 2018-05-13 19:38 | Emergency (ER) | payer OTHER ==
[2018-05-13] MEDS ORDERED: DUONEB 0.5-3 MG/3 ml Neb IH ONE ×2 (20:43→20:55)
[2018-05-13 21:04] LABS: VBG BASE EXCESS 3.1 (-2.0-2.0); VBG CARBOXYHEMOGLOBIN 5.4 % T HGB (0.0-6.9); VBG HCO3- 28.5 meq/L (22-28); VBG HEMOGLOBIN 15.7; VBG O2 SATURATION 88.8 (95-100); VBG pH 7.41 (7.32-7.42)
--- NOTE | 2018-05-13 21:05 | ERPHSYRPT ---
- History of Present Illness Time Seen by Provider: 05/13/18 20:57 Source: patient Exam Limitations: no limitations Patient Subjective Stated Complaint: Productive cough milky color, "hard for me to breath it seems like" chest heaviness, states he gets pneumonia at least once a year Triage Nursing Assessment: Pt a/o x3, no apparent distress with breathing on room air, productive cough, a/p smita lungs diminished, states he gets pneumonia at least once a year, pt unsure if he got PNE vacc Physician History: 78-year-old white male arrives with complaint of cough shortness of breath cough is productive of white sputum states his chest feels heavy symptoms going on for 2 days he denies any nausea or vomiting no fevers. Past medical history includes cataracts, glaucoma, asthma, COPD, hyperlipidemia , high blood pressure, osteoarthritis, TIA, back surgery and neck surgery, slipped disc Past surgical history includes cataracts, bleeding ulcers, back surgery, neck surgery Social history positive tobacco use denies alcohol or illicit drug use. Timing/Duration: day(s) (2 days) Activities at Onset: none Severity of Dyspnea-Max: moderate Severity of Dyspnea-Current: moderate Possible Cause: occasional episodes Modifying Factors: Improves With: nothing Associated Symptoms: constant, cough, chest pain/discomfort (chest feels heavy with breathing), wheezing, productive cough, No intermittent, No anxiety, No edema, No fever, No insomnia, No loss of appetite, No lightheadedness, No weakness, No ankle swelling, No chills, No hemoptysis, No calf pain, No dizziness, No heaviness, No heart racing, No lightheadedness, No leg swelling, No muscle spasms feet, No muscle spasms hands, No painful breathing, No tightness, No tingling face, No tingling hands International travel in last 2 weeks: No Allergies/Adverse Reactions: No Known Drug Allergies Allergy (Verified 01/23/18 12:53) Home Medications: Furosemide 40 mg [Lasix 40 MG] 40 mg PO DAILY 07/22/17 [History] [place]-3/Dha/Epa/Fish Oil [Fish Oil 1,000 mg Softgel] 2,000 mg PO DAILY 07/22/17 [History] Bupropion HCl 150 mg Sr [Wellbutrin SR 150 MG] 150 mg PO BID 07/29/17 [ History] Losartan Potassium 50 mg [Cozaar 50 MG] 50 mg PO DAILY 07/29/17 [History] Albuterol 2.5 mg/3 ml Neb [Proventil 2.5 mg/3 ml Neb] 2.5 mg IH Q4HPRN PRN 09/19/17 [History] Albuterol Common Canister [Proventil Common Canister] 2 puff IH TID [History] Gabapentin [Neurontin] 300 mg PO TID 09/19/17 [History] Timolol [Betimol] 1 drop OP DAILY 09/19/17 [History] Zolpidem Tartrate 10 mg [Ambien 10 MG] 1 tab PO HS PRN PRN 09/19/17 [History ] Hx Tetanus, Diphtheria Vaccination/Date Given: Yes Hx Influenza Vaccination/Date Given: No Hx Pneumococcal Vaccination/Date Given: Yes - Review of Systems Constitutional: No Fever, No Chills Eyes: No Symptoms Ears, Nose, & Throat: No Symptoms Respiratory: Cough, Dyspnea, Wheezing Cardiac: Chest Pain (Chest feels heavy with breathing) Abdominal/Gastrointestinal: No Abdominal Pain, No Nausea, No Vomiting, No Diarrhea Genitourinary Symptoms: No Dysuria Musculoskeletal: No Back Pain, No Neck Pain Skin: No Rash Neurological: No Dizziness, No Focal Weakness, No Sensory Changes Psychological: No Symptoms Endocrine: No Symptoms All Other Systems: Reviewed and Negative - Past Medical History Pertinent Past Medical History: Yes Neurological History: No Pertinent History ENT History: Cataracts, Glaucoma Cardiac History: High Cholesterol, Hypertension Respiratory History: Asthma, COPD Endocrine Medical History: No Pertinent History Musculoskeletal History: Osteoarthritis GI Medical History: Ulcer History: No Pertinent History Psycho-Social History: No Pertinent History Male Reproductive Disorders: No Pertinent History Other Medical History: Pt thinks he may have had a TIA but not diagnosed. 3 back surgeries for "slipped discs". - Past Surgical History Past Surgical History: Yes Neuro Surgical History: No Pertinent History Cardiac: No Pertinent History Respiratory: No Pertinent History Gastrointestinal: Other Genitourinary: No Pertinent History Musculoskeletal: No Pertinent History Male Surgical History: No Pertinent History Other Surgical History: Bleeding ulcer repair, back operations to the lumbar region et neck. - Social History Smoking Status: Current every day smoker How long have you smoked: numerous Exposure to second hand smoke: No Alcohol Use: Socially Drug Use: none Patient Lives Alone: No Significant Family History: no pertinent family hx - Nursing Vital Signs Nursing Vital Signs: Initial Vital Signs Temperature 98.0 F 05/13/18 19:48 Pulse Rate 85 05/13/18 19:48 Respiratory Rate 18 05/13/18 19:48 Blood Pressure 168/98 05/13/18 19:48 O2 Sat by Pulse Oximetry 96 05/13/18 19:48 - Physical Exam General Appearance: mild distress, other (well-developed obese white male alert oriented 3 frequent cough) Eye Exam: PERRL/EOMI Ears, Nose, Throat Exam: hearing grossly normal, normal ENT inspection, normal pharynx, No abnormal TM (R), No abnormal TM (L), No sinus pain/drainage, No hearing decreased, No nasal congestion, No pharyngeal erythema, No tonsillar exudate, No tonsillar swelling Neck Exam: normal inspection, supple Respiratory Exam: airway intact, diminished breath sounds, No respiratory distress Cardiovascular/Chest Exam: normal heart sounds, regular rate/rhythm, normal peripheral pulses, No murmur Abdominal/Gastrointestinal Exam: soft, No tenderness, No distention, No mass Extremity Exam: non-tender, normal range of motion, normal inspection, no calf tenderness, no pedal edema Peripheral Pulses Exam: dorsalis-pedis (R): 2+, dorsalis-pedis (L): 2+ Neurologic Exam: alert, oriented x 3, cooperative, 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, sensation nml, No motor deficits Skin Exam: normal color, warm, No dry SpO2 Interpretation: normal (95%) SpO2: 95 - Course Nursing assessment & vital signs reviewed: Yes EKG Interpreted by Me: RATE (83 bpm), NORMAL AXIS, Other (EKG: Sinus arrhythmia , 83 bpm, complete right bundle-branch block, no acute ST or T wavechanges, compared to September 20, 2017 ) - Radiology Exams Chest X-ray Interpretation: Interpreted by me (Chest x-ray: No acute disease process noted) Ordered Tests: Active Orders 24 hr Category Date Time Status Enrollment Management Vice President STAT Care 05/13/18 20:43 Active EKG-ER Only STAT Care 05/13/18 20:43 Active IV Insertion STAT Care 05/13/18 20:43 Active Pulse Oximetry (ED) STAT Care 05/13/18 20:43 Active CHEST 1 VIEW (PORTABLE) Stat Exams 05/13/18 20:44 Taken BLOOD CULTURE Stat Lab 05/13/18 21:00 Received CBC W DIFF Stat Lab 05/13/18 20:50 Completed CMP Stat Lab 05/13/18 20:50 Completed CULTURE,SPUTUM Stat Lab 05/13/18 20:43 Uncollected D-DIMER QUANTITATION Stat Lab 05/13/18 20:50 Completed NT PRO BNP Stat Lab 05/13/18 20:50 Completed TROPONIN Q3H Lab 05/13/18 20:50 Completed TROPONIN Q3H Lab 05/13/18 23:45 Ordered TROPONIN Q3H Lab 05/14/18 02:45 Ordered TROPONIN Q3H Lab 05/14/18 05:45 Ordered TROPONIN Q3H Lab 05/14/18 08:45 Ordered VENOUS BLOOD GAS Stat Lab 05/13/18 20:55 Completed Peak Expiratory Flow Rate ONCE RT 05/13/18 21:08 Active Respiratory Nebulizer STAT RT 05/13/18 20:44 Completed Respiratory Therapy Assessment DAILY RT 05/13/18 21:08 Active Medication Summary Discontinued Medications Generic Name Dose Route Start Last Admin Trade Name Freq PRN Reason Stop Dose Admin Albuterol/Ipratropium 3 ml 05/13/18 20:43 05/13/18 21:18 Duoneb 0.5-3 Mg/3 Ml Neb IH 05/13/18 20:44 3 ml STAT ONE Administration Albuterol/Ipratropium Confirm 05/13/18 20:55 Duoneb 0.5-3 Mg/3 Ml Neb Administered 05/13/18 20:56 Dose 3 ml IH .STK-MED ONE Ceftriaxone Sodium/Dextrose 1 g in 50 mls @ 100 mls/hr 05/13/18 22:01 22:42 Rocephin 1 Gm-D5w 50 Ml Bag IV 05/13/18 22:30 Infused STAT STA Infusion Ceftriaxone Sodium/Dextrose Confirm 05/13/18 22:04 Rocephin 1 Gm-D5w 50 Ml Bag Administered 05/13/18 22:05 Dose 1 g in 50 mls @ ud IV .STK-MED ONE Methylprednisolone Sodium Succinate 125 mg 05/13/18 21:51 05/13/18 21:53 Solu-Medrol 125 Mg IV 05/13/18 21:52 125 mg STAT ONE Administration Methylprednisolone Sodium Succinate Confirm 05/13/18 21:52 Solu-Medrol 125 Mg Administered 05/13/18 21:53 Dose 125 mg .ROUTE .STK-MED ONE Lab/Rad Data: Laboratory Result Diagrams 05/13/18 20:50 05/13/18 20:50 Laboratory Results 05/13/18 05/13/18 05/13/18 Range/Units 21:55 20:55 20:50 WBC (4.0-10.5) K/mm3 RBC (4.1-5.6) M/mm3 Hgb (12.5-18.0) gm/dl Hct (42-50) % MCV (78-100) fl MCH (26-32) pg MCHC (32-36) g/dl RDW (11.5-14.0) % Plt Count (150-450) K/mm3 MPV (6-9.5) fl Gran % (36.0-66.0) % Eos # (Auto) (0-0.5) Absolute Lymphs (auto) (1.0-4.6) Absolute Monos (auto) (0.0-1.3) Lymphocytes % (24.0-44.0) % Monocytes % (0.0-12.0) % Eosinophils % (0.00-5.0) % Basophils % (0.0-0.4) % Absolute Granulocytes (1.4-6.9) Basophils # (0-0.4) D-Dimer (215-500) ng/mL pO2/FiO2 Ratio 21.0 % VBG pH 7.41 (7.32-7.42) VBG pCO2 at Pat Temp 45 (42-55) mm/Hg VBG pO2 at Pat Temp 46 H (25-40) mm/Hg VBG HCO3 28.5 H (22-28) meq/L VBG O2 Sat (Julia) 88.8 L (95-100) VBG Base Excess 3.1 H (-2.0-2.0) VBG Hemoglobin 15.7 VBG Carboxyhemoglobin 5.4 (0.0-6.9) % T HGB POC Potassium 4.0 (3.5-5.1) Sodium (137-145) mmol/L Potassium (3.5-5.1) mmol/L Chloride (98-107) mmol/L Carbon Dioxide (22-30) mmol/L Anion Gap (5-15) MEQ/L BUN (9-20) mg/dL Creatinine (0.66-1.25) mg/dL Estimated GFR ML/MIN Glucose (74-106) mg/dL Calcium (8.4-10.2) mg/dL Total Bilirubin (0.2-1.3) mg/dL AST (17-59) U/L ALT (0-50) U/L Alkaline Phosphatase (38-126) U/L Troponin I < 0.012 (0.000-0.034) ng/mL NT-Pro-B Natriuret Pep (0-1800) pg/mL Serum Total Protein (6.3-8.2) g/dL Albumin (3.5-5.0) g/dL Influenza Type A Ag NEGATIVE (NEGATIVE) Influenza Type B Ag NEGATIVE (NEGATIVE) RSV (PCR) NEGATIVE (Negative) 05/13/18 05/13/18 05/13/18 Range/Units 20:50 20:50 20:50 WBC 10.4 (4.0-10.5) K/mm3 RBC 4.64 (4.1-5.6) M/mm3 Hgb 15.3 (12.5-18.0) gm/dl Hct 47.0 (42-50) % MCV 101.3 H (78-100) fl MCH 33.0 H (26-32) pg MCHC 32.6 (32-36) g/dl RDW 13.2 (11.5-14.0) % Plt Count 232 (150-450) K/mm3 MPV 11.0 H (6-9.5) fl Gran % 69.8 H (36.0-66.0) % Eos # (Auto) 0.26 (0-0.5) Absolute Lymphs (auto) 1.94 (1.0-4.6) Absolute Monos (auto) 0.93 (0.0-1.3) Lymphocytes % 18.6 L (24.0-44.0) % Monocytes % 8.9 (0.0-12.0) % Eosinophils % 2.5 (0.00-5.0) % Basophils % 0.2 (0.0-0.4) % Absolute Granulocytes 7.28 H (1.4-6.9) Basophils # 0.02 (0-0.4) D-Dimer 293 (215-500) ng/mL pO2/FiO2 Ratio % VBG pH (7.32-7.42) VBG pCO2 at Pat Temp (42-55) mm/Hg VBG pO2 at Pat Temp (25-40) mm/Hg VBG HCO3 (22-28) meq/L VBG O2 Sat (Julia) (95-100) VBG Base Excess (-2.0-2.0) VBG Hemoglobin VBG Carboxyhemoglobin (0.0-6.9) % T HGB POC Potassium (3.5-5.1) Sodium 138 (137-145) mmol/L Potassium 4.2 (3.5-5.1) mmol/L Chloride 103 (98-107) mmol/L Carbon Dioxide 28 (22-30) mmol/L Anion Gap 10.1 (5-15) MEQ/L BUN 11 (9-20) mg/dL Creatinine 0.74 (0.66-1.25) mg/dL Estimated GFR > 60.0 ML/MIN Glucose 122 H (74-106) mg/dL Calcium 9.1 (8.4-10.2) mg/dL Total Bilirubin 0.90 (0.2-1.3) mg/dL AST 19 (17-59) U/L ALT 16 (0-50) U/L Alkaline Phosphatase 116 (38-126) U/L Troponin I (0.000-0.034) ng/mL NT-Pro-B Natriuret Pep 112 (0-1800) pg/mL Serum Total Protein 6.8 (6.3-8.2) g/dL Albumin 4.0 (3.5-5.0) g/dL Influenza Type A Ag (NEGATIVE) Influenza Type B Ag (NEGATIVE) RSV (PCR) (Negative) - Progress Progress: improved Air Movement: fair Progress Note: 05/13/18 22:55 Patient feeling better step he states he still feels "rough". No chest pain at this time I've offered the patient repeat of albuterol treatment he states he will do this at home. I offered to contact his physician to look into possible observation he states he doesn't want this either. I've also offered the patient to have a repeat troponin he doesn't want to do this either. Will go ahead and plan on discharging patient. Diagnosis COPD with exacerbation. Patient will be sent home with tapering dose of prednisone, Zithromax Z-Luis. Patient states he has inhalers at home. Patient will be advised to quit smoking. 05/13/18 22:56 patient's lungs are clear at this time. Patient does not appear to be in acute distress, - Departure Time of Disposition: 22:57 Departure Disposition: Home Clinical Impression: Shortness of breath, COPD with exacerbation Condition: Fair Critical Care Time: No Referrals: HOSPITAL,'S [Primary Care Provider] - Additional Instructions: Return home. Zithromax as prescribed. Prednisone taper as prescribed. Continue your albuterol as prescribed by your family doctor. Follow-up with your family doctor. Return for acute distress or severe symptoms or for any problems. Stop Smoking. Prescriptions: Azithromycin 250 mg [Zithromax 250 MG TABLET] 250 mg PO DAILY #4 tablet
[2018-05-13 21:06] LABS: BASOPHIL % 0.2 % (0.0-0.4); Basophil (Absolute #) 0.02 (0-0.4); Eosinophil % 2.5 % (0.00-5.0); Eosinophil (Absolute #) 0.26 (0-0.5); Granulocyte Absolute (ANC) 7.28 (1.4-6.9); Granulocytes % 69.8 % (36.0-66.0); Hemoglobin 15.3 gm/dl (12.5-18.0); Lymphocyte (Absolute #) 1.94 (1.0-4.6); Lymphocytes % 18.6 % (24.0-44.0); Mean Cell Volume 101.3 fl (78-100); Mean Corpuscular Hgb Concent. 32.6 g/dl (32-36); Monocyte (Absolute #) 0.93 (0.0-1.3); Monocytes % 8.9 % (0.0-12.0); Platelet Count 232 K/mm3 (150-450); Red Blood Count 4.64 M/mm3 (4.1-5.6); Red Cell Distribution Width 13.2 % (11.5-14.0); White Blood Count 10.4 K/mm3 (4.0-10.5)
[2018-05-13 21:46] LABS: ALKALINE PHOSPHATASE 116 U/L (38-126); ANION GAP 10.1 MEQ/L (5-15); BLOOD UREA NITROGEN 11 mg/dL (9-20); CHLORIDE 103 mmol/L (98-107); Calcium 9.1 mg/dL (8.4-10.2); Carbon Dioxide 28 mmol/L (22-30); Creatinine 1 0.74 mg/dL (0.66-1.25); Glucose 122 mg/dL (74-106); NT PRO BNP 112 pg/mL (0-1800); Potassium 4.2 mmol/L (3.5-5.1); SGOT/AST 19 U/L (17-59); SGPT/ALT 16 U/L (0-50); SODIUM 138 mmol/L (137-145); Total Protein 6.8 g/dL (6.3-8.2)
[2018-05-13] MEDS ORDERED: solu-MEDROL 125 MG IV ONE (21:51)
[2018-05-13] MEDS ORDERED: solu-MEDROL 125 MG ONE (21:52)
[2018-05-13] MEDS ORDERED: ROCEPHIN 1 Gm-D5w 50 ml Bag** 1 G/50 ML IVPB IV STA (22:01)
[2018-05-13] MEDS ORDERED: ROCEPHIN 1 Gm-D5w 50 ml Bag** 1 G/50 ML IVPB IV ONE (22:04)
[2018-05-13 22:39] LABS: INFLUENZA A NEGATIVE (NEGATIVE); INFLUENZA B NEGATIVE (NEGATIVE); RESPIRATORY SYNCTIAL VIRUS NEGATIVE (Negative)
[2018-05-13] MEDS ORDERED: Zithromax 250 MG TABLET PO ONE (22:58)
[2018-05-13] MEDS ORDERED: Zithromax 250 MG TABLET ONE (23:09)
[2018-05-13 23:14] VITALS: BP 144/100; PULSE 86; O2SAT 94
--- NOTE | 2018-05-14 08:37 | XRAY ---
Indication: Cough, congestion, and short of breath. Comparison: January 23, 2018. Portable chest demonstrates stable minimal bibasilar atelectasis/scarring. Remaining heart and lungs unremarkable. Bony thorax intact again with mild osteopenia, degenerative changes, and old right rib fracture. Impression: Stable nonacute chest with chronic features.
== END 2018-05-13 23:23 | disposition home or self-care (01) ==
LOC: ED 19:38
DX: R06.02 Shortness of breath (principal); J44.1 Chronic obstructive pulmonary disease with (acute) exacerbation; J45.909 Unspecified asthma, uncomplicated; E78.5 Hyperlipidemia, unspecified; I10 Essential (primary) hypertension; M19.90 Unspecified osteoarthritis, unspecified site; Z86.73 Personal history of transient ischemic attack (TIA), and cerebral infarction without residual deficits; Z79.899 Other long term (current) drug therapy
CPT/HCPCS: 36000; 36415; 71045; 80053; 82805; 83880; 84484; 85025; 85379; 87040; 87631; 93005; 93041; 94150; 94640; 96365; 96374; 96375; 99284; J0696; J2930; A9270-GY

== ENCOUNTER 2018-11-15 11:44 | Inpatient (IN) | payer MEDICARE, OTHER | END 2018-11-19 14:53 | disposition home or self-care (01) | LOC: ED 11:44 → MED SURG 16:39 ==

== ENCOUNTER 2018-11-21 18:15 | Emergency (ER) | payer MEDICARE | END 2018-11-21 21:59 | disposition home or self-care (01) | LOC: ED 18:15 ==

== ENCOUNTER 2018-11-27 14:45 | Emergency (ER) | payer MEDICARE ==
[2018-11-27] MEDS ORDERED: DUONEB 0.5-3 MG/3 ml Neb IH ONE ×2 (14:48→15:00)
[2018-11-27] MEDS ORDERED: solu-MEDROL 125 MG IV ONE (14:54)
[2018-11-27] MEDS ORDERED: Zithromax 500 MG/ 250 ML NaCl Premix 500 MG/250 ML IVPB IV STA (14:54)
[2018-11-27 15:43] LABS: ALBUMIN 3.7 g/dL (3.5-5.0); ALKALINE PHOSPHATASE 96 U/L (38-126); ANION GAP 9.6 MEQ/L (5-15); BLOOD UREA NITROGEN 11 mg/dL (9-20); CHLORIDE 103 mmol/L (98-107); Calcium 9.1 mg/dL (8.4-10.2); Carbon Dioxide 29 mmol/L (22-30); Creatinine 1 0.68 mg/dL (0.66-1.25); Glucose 100 mg/dL (74-106); MAGNESIUM 1.9 mg/dL (1.6-2.3); NT PRO BNP 237 pg/mL (0-1800); Potassium 3.9 mmol/L (3.5-5.1); SGOT/AST 33 U/L (17-59); SGPT/ALT 18 U/L (0-50); SODIUM 139 mmol/L (137-145); Total Protein 6.8 g/dL (6.3-8.2)
[2018-11-27 15:46] LABS: BASOPHIL % 0.1 % (0.0-0.4); Basophil (Absolute #) 0.01 (0-0.4); Eosinophil % 1.8 % (0.00-5.0); Eosinophil (Absolute #) 0.13 (0-0.5); Granulocytes % 61.9 % (36.0-66.0); Hematocrit 43.2 % (42-50); Hemoglobin 13.9 gm/dl (12.5-18.0); Lymphocyte (Absolute #) 1.99 (1.0-4.6); Lymphocytes % 27.3 % (24.0-44.0); Mean Cell Volume 102.6 fl (78-100); Mean Corpuscular Hgb Concent. 32.2 g/dl (32-36); Mean Platelet Volume 11.1 fl (6-9.5); Monocyte (Absolute #) 0.65 (0.0-1.3); Monocytes % 8.9 % (0.0-12.0); Platelet Count 277 K/mm3 (150-450); Red Blood Count 4.21 M/mm3 (4.1-5.6); Red Cell Distribution Width 13.7 % (11.5-14.0); White Blood Count 7.3 K/mm3 (4.0-10.5)
[2018-11-27] MEDS ORDERED: solu-MEDROL 125 MG ONE (15:57)
[2018-11-27] MEDS ORDERED: Zithromax 500 MG/ 250 ML NaCl Premix 500 MG/250 ML IVPB IV ONE (15:57)
[2018-11-27] MEDS ORDERED: Zofran 4 MG/2 ML VIAL IV ONE (16:16)
[2018-11-27] MEDS ORDERED: Zofran 4 MG/2 ML VIAL ONE (16:18)
--- NOTE | 2018-11-27 16:19 | XRAY ---
Indication: Short of breath. Comparison: November 21, 2018. PA/lateral chest better inflated again with COPD and bibasilar infiltrates/atelectasis. Heart is not enlarged. No new cardiopulmonary abnormalities.
[2018-11-27 16:23] LABS: INFLUENZA A NEGATIVE (NEGATIVE); INFLUENZA B NEGATIVE (NEGATIVE); RESPIRATORY SYNCTIAL VIRUS NEGATIVE (Negative)
[2018-11-27] MEDS ORDERED: ATARAX 25 MG PO ONE (16:33)
[2018-11-27] MEDS ORDERED: ATARAX 25 MG ONE (16:35)
--- NOTE | 2018-11-27 17:21 | XRAY ---
Indication: Short of breath. Elevated d-dimer. Multiple contiguous axial images obtained through the chest using 80 cc of Isovue-370 contrast and PE protocol. Comparison: November 15, 2018. There is good opacification of the pulmonary arteries to include the lobar and segmental branches. Again no filling defect or pulmonary embolus. Heart is not enlarged. Aorta is normal in course and caliber. Again no pathologic mediastinal/hilar lymphadenopathy. Examination of the lung parenchyma again demonstrates pulmonary emphysema with scattered fibrosis/scarring and tiny peripheral left upper lobe calcified granuloma. There is minimal clearing of the previous interstitial alveolar opacities in the mid to lower lungs bilaterally. No new pulmonary mass or effusion. Bony thorax intact again with mild degenerative changes throughout the spine. Limited upper abdomen demonstrate stable right adrenal adenoma and distended gallbladder. Visualized colon demonstrates moderate scattered colonic fecal debris not previously imaged. Impression: 1. Again negative pulmonary embolus. 2. Minimal clearing of previous bilateral interstitial opacities. No new cardiopulmonary abnormalities. 3. Stable pulmonary emphysema, scattered fibrosis/scarring, and right adrenal adenoma. 3. Incidental fecal stasis. CTDI 30.00
--- NOTE | 2018-11-27 17:40 | ERPHSYRPT ---
- History of Present Illness Source: patient Exam Limitations: no limitations Patient Subjective Stated Complaint: PT states "I got worked up again and could not breath." Triage Nursing Assessment: Pt presented alert and oriented X 3, skin pwd Pt ambulates with assistance. PT tachypneic, sitting in wheelchair. Pt able to speak in two to three word sentences. Physician History: Pt is an 78 y/o male that has a h/o Emphysema and SOB. He presented to the ER, after arguing with his son, getting anxious and developing SOB. Pt was in the Er about a week ago, with same presentation. Pt denies F/C/S. No chest pain or palpitations. He does have a nebulizer at home, but he does not remeber what nebs he uses. Pt denies N/V/D or abdominal pain. No dysuria, frequency and urgency. Timing/Duration: today Activities at Onset: emotional stress Severity of Dyspnea-Max: mild Severity of Dyspnea-Current: mild Possible Cause: frequent episodes Modifying Factors: Improves With: albuterol inhaler, albuterol nebulizer, rest Associated Symptoms: denies symptoms International travel in last 2 weeks: No Allergies/Adverse Reactions: No Known Drug Allergies Allergy (Verified 11/15/18 12:20) Home Medications: Furosemide 40 mg [Lasix 40 MG] 40 mg PO DAILY 07/22/17 [History] Losartan Potassium 50 mg [Cozaar 50 MG] 50 mg PO BID 07/29/17 [History] Albuterol 2.5 mg/3 ml Neb [Proventil 2.5 mg/3 ml Neb] 2.5 mg IH Q4HPRN PRN 09/19/17 [History] Albuterol Common Canister [Proventil Common Canister] 2 puff IH TID [History] Timolol [Betimol] 1 drop OP DAILY 09/19/17 [History] Zolpidem Tartrate 10 mg [Ambien 10 MG] 1 tab PO HS PRN PRN 09/19/17 [History ] Gabapentin 400 mg [Neurontin 400 MG] 1,600 mg PO TID 11/16/18 [History] Hx Tetanus, Diphtheria Vaccination/Date Given: No Hx Influenza Vaccination/Date Given: No Hx Pneumococcal Vaccination/Date Given: No Immunizations Up to Date: Yes - Review of Systems Constitutional: No Fever, No Chills Eyes: No Symptoms Ears, Nose, & Throat: No Symptoms Respiratory: Cough, Dyspnea on Exertion (BELTRAN), Wheezing Cardiac: No Chest Pain, No Edema, No Syncope Abdominal/Gastrointestinal: No Abdominal Pain, No Nausea, No Vomiting, No Diarrhea Genitourinary Symptoms: No Dysuria Musculoskeletal: No Back Pain, No Neck Pain Skin: No Rash Neurological: No Dizziness, No Focal Weakness, No Sensory Changes Psychological: Anxiety Endocrine: No Symptoms - Past Medical History Pertinent Past Medical History: Yes Neurological History: No Pertinent History ENT History: Cataracts, Glaucoma Cardiac History: High Cholesterol, Hypertension Respiratory History: Asthma, COPD Endocrine Medical History: No Pertinent History Musculoskeletal History: Osteoarthritis GI Medical History: Ulcer History: No Pertinent History Psycho-Social History: No Pertinent History Male Reproductive Disorders: No Pertinent History Other Medical History: Pt thinks he may have had a TIA but not diagnosed. 3 back surgeries for "slipped discs". - Past Surgical History Past Surgical History: Yes Neuro Surgical History: No Pertinent History Cardiac: No Pertinent History Respiratory: No Pertinent History Gastrointestinal: Other Genitourinary: No Pertinent History Musculoskeletal: No Pertinent History Male Surgical History: No Pertinent History Other Surgical History: Bleeding ulcer repair, back operations to the lumbar region et neck. - Social History Smoking Status: Current every day smoker How long have you smoked: years Exposure to second hand smoke: Yes Alcohol Use: Socially Drug Use: none Patient Lives Alone: No Significant Family History: no pertinent family hx - Nursing Vital Signs Nursing Vital Signs: Initial Vital Signs Temperature 98.5 F 11/27/18 14:46 Pulse Rate 98 H 11/27/18 14:46 Respiratory Rate 28 H 11/27/18 14:46 Blood Pressure 158/91 11/27/18 14:46 O2 Sat by Pulse Oximetry 98 11/27/18 14:46 Pain Scale Pain Intensity 0 - Physical Exam General Appearance: moderate distress Eye Exam: PERRL/EOMI Ears, Nose, Throat Exam: hearing grossly normal Neck Exam: normal inspection, supple Respiratory Exam: prolonged expirations, wheezing Cardiovascular/Chest Exam: normal heart sounds, regular rate/rhythm Abdominal/Gastrointestinal Exam: soft, No tenderness, No distention, No mass Extremity Exam: non-tender, normal range of motion, normal inspection, no calf tenderness, no pedal edema Neurologic Exam: alert, oriented x 3, cooperative, surgical elastic knitter hand frame II-XII nml as tested, sensation nml, No motor deficits SpO2 Interpretation: normal SpO2: 96 O2 Delivery: Room Air - Course Nursing assessment & vital signs reviewed: Yes EKG Interpreted by Me: RATE (73bpm), Right Bundle Branch Block - CT Exams Chest CT Interpretation: Tele-radiologist Report (No PE, Minimal clearing of b/l interstitial opacities. Stable emphysema. Scattered fibrosis, and R adrenal adenoma. Fecal stasis.) Ordered Tests: Active Orders 24 hr Category Date Time Status CHEST 2 VIEWS (PA AND LAT) Stat Exams 11/27/18 14:55 Completed CHEST WITH CONTRAST [CT] Stat Exams 11/27/18 17:14 Completed CBC W DIFF Stat Lab 11/27/18 15:19 Completed CMP Stat Lab 11/27/18 15:19 Completed D-DIMER QUANTITATION Stat Lab 11/27/18 15:19 Completed Lactic Acid Stat Lab 11/27/18 15:45 Completed MAGNESIUM Stat Lab 11/27/18 15:19 Completed NT PRO BNP Stat Lab 11/27/18 15:19 Completed TROPONIN Q3H Lab 11/27/18 15:19 Completed TROPONIN Q3H Lab 11/27/18 18:00 Ordered TROPONIN Q3H Lab 11/27/18 21:00 Ordered TROPONIN Q3H Lab 11/28/18 00:00 Ordered TROPONIN Q3H Lab 11/28/18 03:00 Ordered Respiratory Therapy Assessment DAILY RT 11/27/18 15:12 Active Medication Summary Discontinued Medications Generic Name Dose Route Start Last Admin Trade Name Freq PRN Reason Stop Dose Admin Albuterol/Ipratropium Confirm 11/27/18 14:48 Duoneb 0.5-3 Mg/3 Ml Neb Administered 11/27/18 14:49 Dose 3 ml IH .STK-MED ONE Albuterol/Ipratropium 3 ml 11/27/18 15:00 11/27/18 15:00 Duoneb 0.5-3 Mg/3 Ml Neb IH 11/27/18 15:01 3 ml STAT ONE Administration Hydroxyzine HCl 25 mg 11/27/18 16:33 11/27/18 16:36 Atarax 25 Mg PO 11/27/18 16:34 25 mg STAT ONE Administration Hydroxyzine HCl Confirm 11/27/18 16:35 Atarax 25 Mg Administered 11/27/18 16:36 Dose 25 mg .ROUTE .STK-MED ONE Azithromycin 500 mg in 250 mls @ 250 mls/hr 11/27/18 14:54 11/27/18 15:59 Zithromax 500 Mg/ 250 Ml Nacl Premix IV 11/27/18 15:53 250 mls/hr STAT STA 250 mls/hr Administration Azithromycin Confirm 11/27/18 15:57 Zithromax 500 Mg/ 250 Ml Nacl Premix Administered 11/27/18 15:58 Dose 500 mg in 250 mls @ ud IV .STK-MED ONE Methylprednisolone Sodium Succinate 125 mg 11/27/18 14:54 11/27/18 15:59 Solu-Medrol 125 Mg IV 11/27/18 14:55 125 mg STAT ONE Administration Methylprednisolone Sodium Succinate Confirm 11/27/18 15:57 Solu-Medrol 125 Mg Administered 11/27/18 15:58 Dose 125 mg .ROUTE .STK-MED ONE Ondansetron HCl 4 mg 11/27/18 16:16 11/27/18 16:19 Zofran 4 Mg/2 Ml Vial IV 11/27/18 16:17 4 mg STAT ONE Administration Ondansetron HCl Confirm 11/27/18 16:18 Zofran 4 Mg/2 Ml Vial Administered 11/27/18 16:19 Dose 4 mg .ROUTE .STK-MED ONE Lab/Rad Data: Laboratory Result Diagrams 11/27/18 15:19 11/27/18 15:19 Laboratory Results 11/27/18 11/27/18 11/27/18 Range/Units 15:45 15:41 15:19 WBC (4.0-10.5) K/mm3 RBC (4.1-5.6) M/mm3 Hgb (12.5-18.0) gm/dl Hct (42-50) % MCV (78-100) fl MCH (26-32) pg MCHC (32-36) g/dl RDW (11.5-14.0) % Plt Count (150-450) K/mm3 MPV (6-9.5) fl Gran % (36.0-66.0) % Eos # (Auto) (0-0.5) Absolute Lymphs (auto) (1.0-4.6) Absolute Monos (auto) (0.0-1.3) Lymphocytes % (24.0-44.0) % Monocytes % (0.0-12.0) % Eosinophils % (0.00-5.0) % Basophils % (0.0-0.4) % Absolute Granulocytes (1.4-6.9) Basophils # (0-0.4) D-Dimer (215-500) ng/mL Sodium (137-145) mmol/L Potassium (3.5-5.1) mmol/L Chloride (98-107) mmol/L Carbon Dioxide (22-30) mmol/L Anion Gap (5-15) MEQ/L BUN (9-20) mg/dL Creatinine (0.66-1.25) mg/dL Estimated GFR ML/MIN Glucose (74-106) mg/dL Lactic Acid 1.5 (0.4-2.0) Calcium (8.4-10.2) mg/dL Magnesium (1.6-2.3) mg/dL Total Bilirubin (0.2-1.3) mg/dL AST (17-59) U/L ALT (0-50) U/L Alkaline Phosphatase (38-126) U/L Troponin I < 0.012 (0.000-0.034) ng/mL NT-Pro-B Natriuret Pep (0-1800) pg/mL Serum Total Protein (6.3-8.2) g/dL Albumin (3.5-5.0) g/dL Influenza Type A Ag NEGATIVE (NEGATIVE) Influenza Type B Ag NEGATIVE (NEGATIVE) RSV (PCR) NEGATIVE (Negative) 11/27/18 11/27/18 11/27/18 Range/Units 15:19 15:19 15:19 WBC 7.3 (4.0-10.5) K/mm3 RBC 4.21 (4.1-5.6) M/mm3 Hgb 13.9 (12.5-18.0) gm/dl Hct 43.2 (42-50) % MCV 102.6 H (78-100) fl MCH 33.0 H (26-32) pg MCHC 32.2 (32-36) g/dl RDW 13.7 (11.5-14.0) % Plt Count 277 (150-450) K/mm3 MPV 11.1 H (6-9.5) fl Gran % 61.9 (36.0-66.0) % Eos # (Auto) 0.13 (0-0.5) Absolute Lymphs (auto) 1.99 (1.0-4.6) Absolute Monos (auto) 0.65 (0.0-1.3) Lymphocytes % 27.3 (24.0-44.0) % Monocytes % 8.9 (0.0-12.0) % Eosinophils % 1.8 (0.00-5.0) % Basophils % 0.1 (0.0-0.4) % Absolute Granulocytes 4.50 (1.4-6.9) Basophils # 0.01 (0-0.4) D-Dimer 902 H* (215-500) ng/mL Sodium 139 (137-145) mmol/L Potassium 3.9 (3.5-5.1) mmol/L Chloride 103 (98-107) mmol/L Carbon Dioxide 29 (22-30) mmol/L Anion Gap 9.6 (5-15) MEQ/L BUN 11 (9-20) mg/dL Creatinine 0.68 (0.66-1.25) mg/dL Estimated GFR > 60.0 ML/MIN Glucose 100 (74-106) mg/dL Lactic Acid (0.4-2.0) Calcium 9.1 (8.4-10.2) mg/dL Magnesium 1.9 (1.6-2.3) mg/dL Total Bilirubin 0.90 (0.2-1.3) mg/dL AST 33 (17-59) U/L ALT 18 (0-50) U/L Alkaline Phosphatase 96 (38-126) U/L Troponin I (0.000-0.034) ng/mL NT-Pro-B Natriuret Pep 237 (0-1800) pg/mL Serum Total Protein 6.8 (6.3-8.2) g/dL Albumin 3.7 (3.5-5.0) g/dL Influenza Type A Ag (NEGATIVE) Influenza Type B Ag (NEGATIVE) RSV (PCR) (Negative) - Progress Progress: improved Air Movement: good Progress Note: 11/27/18 17:44 Pt was seen and examined. He got a neb treatment, and Solu Medrol 125mg. Azithromycin IV was ordered. Pt was very anxious and Atarax 25mg PO was given x1, and pt was feeling much better. Pt is now stable, and is stable for d/c. Pt should F/U with his PCP. A therapy with Doxycycline will be ordered for the pt. Blood Culture(s) Obtained: No Antibiotics given: Yes Will see patient in: office Counseled pt/family regarding: need for follow-up - Departure Departure Disposition: Home Clinical Impression: COPD exacerbation Condition: Stable Critical Care Time: No Referrals: [facility],'[facility] [Primary Care Provider] - Instructions: Chronic Obstructive Pulmonary Disease Additional Instructions: Take your meds as ordered. Take doxycycline BID for ten days. F/U with PCP. Prescriptions: Doxycycline Hyclate 100 mg PO BID #20 tablet
[2018-11-27 17:50] VITALS: BP 182/92; PULSE 89; O2SAT 99
== END 2018-11-27 18:07 | disposition home or self-care (01) ==
LOC: ED 14:45
DX: J44.1 Chronic obstructive pulmonary disease with (acute) exacerbation (principal)
CPT/HCPCS: 36000; 36415; 71046; 71260; 80053; 83605; 83735; 83880; 84484; 85025; 85379; 87631; 94640; 96365; 96374; 96375; 99284; J0456; J2405; J2930; A9270-GY

== ENCOUNTER 2018-12-04 03:16 | Emergency (ER) | payer MEDICARE ==
[2018-12-04] MEDS ORDERED: DUONEB 0.5-3 MG/3 ml Neb IH ONE ×2 (03:32→03:38)
[2018-12-04 03:46] LABS: Lactic Acid 1.8 (0.4-2.0); VBG BASE EXCESS 5.6 (-2.0-2.0); VBG CARBOXYHEMOGLOBIN 3.4 % T HGB (0.0-6.9); VBG HCO3- 30.6 meq/L (22-28); VBG HEMOGLOBIN 13.6; VBG POTASSIUM 3.7 (3.5-5.1); VBG pH 7.44 (7.32-7.42)
--- NOTE | 2018-12-04 03:46 | ERPHSYRPT ---
- History of Present Illness Source: patient, EMS Exam Limitations: no limitations Physician History: Patient brought into the emergency department via ambulance due to feeling short of breath for the last few hours. Patient received a DuoNeb treatment by EMS personnel. Activities at Onset: rest Severity of Dyspnea-Max: moderate Severity of Dyspnea-Current: none Modifying Factors: Improves With: albuterol nebulizer Associated Symptoms: constant, anxiety, wheezing, No cough, No chest pain/ discomfort, No edema, No fever, No insomnia, No loss of appetite, No lightheadedness, No weakness, No ankle swelling, No chills, No hemoptysis, No calf pain, No dizziness, No heaviness, No heart racing, No lightheadedness, No leg swelling, No muscle spasms feet, No muscle spasms hands, No painful breathing, No productive cough, No sweating, No tingling face International travel in last 2 weeks: No Allergies/Adverse Reactions: No Known Drug Allergies Allergy (Verified 12/04/18 03:37) Home Medications: Furosemide 40 mg [Lasix 40 MG] 40 mg PO DAILY 07/22/17 [History] Losartan Potassium 50 mg [Cozaar 50 MG] 50 mg PO BID 07/29/17 [History] Albuterol 2.5 mg/3 ml Neb [Proventil 2.5 mg/3 ml Neb] 2.5 mg IH Q4HPRN PRN 09/19/17 [History] Albuterol Common Canister [Proventil Common Canister] 2 puff IH TID [History] Timolol [Betimol] 1 drop OP DAILY 09/19/17 [History] Zolpidem Tartrate 10 mg [Ambien 10 MG] 1 tab PO HS PRN PRN 09/19/17 [History ] Gabapentin 400 mg [Neurontin 400 MG] 1,600 mg PO TID 11/16/18 [History] Hx Tetanus, Diphtheria Vaccination/Date Given: No Hx Influenza Vaccination/Date Given: No Hx Pneumococcal Vaccination/Date Given: No - Review of Systems Constitutional: No Fever, No Chills Eyes: No Symptoms Ears, Nose, & Throat: No Symptoms, No Nose Congestion, No Nose Discharge, No Mouth Pain, No Throat Pain Respiratory: Dyspnea, Wheezing, No Cough Cardiac: No Chest Pain, No Edema, No Syncope Abdominal/Gastrointestinal: No Abdominal Pain, No Nausea, No Vomiting, No Diarrhea Genitourinary Symptoms: No Dysuria Musculoskeletal: No Back Pain, No Neck Pain Skin: No Rash Neurological: No Dizziness, No Focal Weakness, No Sensory Changes Psychological: No Symptoms Endocrine: No Symptoms, No Polyuria Hematologic/Lymphatic: No Easy Bleeding, No Easy Bruising All Other Systems: Reviewed and Negative - Past Medical History Pertinent Past Medical History: Yes Neurological History: No Pertinent History ENT History: Cataracts, Glaucoma Cardiac History: High Cholesterol, Hypertension Respiratory History: Asthma, COPD Endocrine Medical History: No Pertinent History Musculoskeletal History: Osteoarthritis GI Medical History: Ulcer History: No Pertinent History Psycho-Social History: No Pertinent History Male Reproductive Disorders: No Pertinent History Other Medical History: Pt thinks he may have had a TIA but not diagnosed. 3 back surgeries for "slipped discs". - Past Surgical History Past Surgical History: Yes Neuro Surgical History: No Pertinent History Cardiac: No Pertinent History Respiratory: No Pertinent History Gastrointestinal: Other Genitourinary: No Pertinent History Musculoskeletal: No Pertinent History Male Surgical History: No Pertinent History Other Surgical History: Bleeding ulcer repair, back operations to the lumbar region et neck. - Social History Smoking Status: Current every day smoker How long have you smoked: years Exposure to second hand smoke: Yes Alcohol Use: Socially Drug Use: none Patient Lives Alone: No Significant Family History: no pertinent family hx - Nursing Vital Signs Nursing Vital Signs: Initial Vital Signs Temperature 97.4 F 12/04/18 03:28 Pulse Rate 53 L 12/04/18 03:28 Respiratory Rate 20 12/04/18 03:28 Blood Pressure 103/56 12/04/18 03:28 O2 Sat by Pulse Oximetry 99 12/04/18 03:28 Pain Scale Pain Intensity 0 - Physical Exam General Appearance: no apparent distress, alert Eye Exam: PERRL/EOMI, eyes nml inspection, No scleral icterus Ears, Nose, Throat Exam: normal ENT inspection, normal pharynx, No sinus pain/ drainage, No nasal congestion, No pharyngeal erythema Neck Exam: normal inspection, supple, No Brudzinski, No meningismus, No lymphadenopathy (R) Respiratory Exam: normal breath sounds, lungs clear, airway intact, No respiratory distress, No diminished breath sounds, No accessory muscle use, No crackles/rales, No rhonchi, No wheezing, No pleural rub Cardiovascular/Chest Exam: normal heart sounds, regular rate/rhythm, normal peripheral pulses Abdominal/Gastrointestinal Exam: soft, No tenderness, No distention, No mass, No rebound Extremity Exam: non-tender, normal range of motion, normal inspection, no calf tenderness, no pedal edema Neurologic Exam: alert, oriented x 3, cooperative, inspector weights and measures II-XII nml as tested, sensation nml, No motor deficits Skin Exam: normal color, warm, No dry SpO2 Interpretation: normal O2 Delivery: Room Air - Course Nursing assessment & vital signs reviewed: Yes EKG Interpreted by Me: RATE, Sinus Rhythm, NORMAL AXIS, Right Bundle Branch Block, NORMAL ST-T, Other (no acute change in comparison to EKG from 11/27/2018) - Radiology Exams Chest X-ray Interpretation: Interpreted by me, No Pneumonia, No Infiltrates, Nml Mediastinum, Other (scattered fibrosis and emphysematous changes, no appreciable changes from 11/27/2018 chest x-ray) - CT Exams Chest CT Interpretation: Negative, No PE, Other (from 11/27/2018 interpretation by Radiologist; stable emphysema, scattered fibrosis) Ordered Tests: Active Orders 24 hr Category Date Time Status Software Engineer Intern STAT Care 12/04/18 03:33 Active EKG-ER Only STAT Care 12/04/18 03:32 Active CHEST 2 VIEWS (PA AND LAT) Stat Exams 12/04/18 03:32 Taken CBC W DIFF Stat Lab 12/04/18 03:30 Completed CMP Stat Lab 12/04/18 03:30 Completed Lactic Acid Stat Lab 12/04/18 03:32 Completed MAGNESIUM Stat Lab 12/04/18 03:30 Completed NT PRO BNP Stat Lab 12/04/18 03:30 Completed PROTIME WITH INR Stat Lab 12/04/18 03:30 Completed PTT Stat Lab 12/04/18 03:30 Completed TROPONIN Q3H Lab 12/04/18 03:30 Completed TROPONIN Q3H Lab 12/04/18 06:45 Ordered TROPONIN Q3H Lab 12/04/18 09:45 Ordered TROPONIN Q3H Lab 12/04/18 12:45 Ordered TROPONIN Q3H Lab 12/04/18 15:45 Ordered UA W/RFX UR CULTURE Stat Lab 12/04/18 03:32 Uncollected VENOUS BLOOD GAS Stat Lab 12/04/18 03:32 Completed Peak Expiratory Flow Rate ONCE RT 12/04/18 04:00 Active Respiratory Therapy Assessment DAILY RT 12/04/18 04:00 Active Medication Summary Discontinued Medications Generic Name Dose Route Start Last Admin Trade Name Osmaniq PRN Reason Stop Dose Admin Albuterol/Ipratropium 3 ml 12/04/18 03:32 12/04/18 03:59 Duoneb 0.5-3 Mg/3 Ml Neb IH 12/04/18 03:33 3 ml STAT ONE Administration Albuterol/Ipratropium Confirm 12/04/18 03:38 Duoneb 0.5-3 Mg/3 Ml Neb Administered 12/04/18 03:39 Dose 3 ml IH .STK-MED ONE Methylprednisolone Sodium Succinate 80 mg 12/04/18 04:35 Solu-Medrol 40 Mg IV 12/04/18 04:36 STAT ONE Methylprednisolone Sodium Succinate Confirm 12/04/18 04:39 Solu-Medrol 125 Mg Administered 12/04/18 04:40 Dose 125 mg .ROUTE .STK-MED ONE Lab/Rad Data: Laboratory Result Diagrams 12/04/18 03:30 12/04/18 03:30 Laboratory Results 12/04/18 12/04/18 12/04/18 Range/Units 03:32 03:30 03:30 WBC (4.0-10.5) K/mm3 RBC (4.1-5.6) M/mm3 Hgb (12.5-18.0) gm/dl Hct (42-50) % MCV (78-100) fl MCH (26-32) pg MCHC (32-36) g/dl RDW (11.5-14.0) % Plt Count (150-450) K/mm3 MPV (6-9.5) fl Gran % (36.0-66.0) % Eos # (Auto) (0-0.5) Absolute Lymphs (auto) (1.0-4.6) Absolute Monos (auto) (0.0-1.3) Lymphocytes % (24.0-44.0) % Monocytes % (0.0-12.0) % Eosinophils % (0.00-5.0) % Basophils % (0.0-0.4) % Absolute Granulocytes (1.4-6.9) Basophils # (0-0.4) PT 13.2 H (8.83-12.87) SECONDS INR 1.16 (0.8-3.0) APTT 29.2 (24.1-36.1) SECONDS pO2/FiO2 Ratio 21.0 % VBG pH 7.44 H (7.32-7.42) VBG pCO2 at Pat Temp 45 (42-55) mm/Hg VBG pO2 at Pat Temp 43 H (25-40) mm/Hg VBG HCO3 30.6 H* (22-28) meq/L VBG O2 Sat (Julia) 86.0 L (95-100) VBG Base Excess 5.6 H (-2.0-2.0) VBG Hemoglobin 13.6 VBG Carboxyhemoglobin 3.4 (0.0-6.9) % T HGB POC Potassium 3.7 (3.5-5.1) Sodium (137-145) mmol/L Potassium (3.5-5.1) mmol/L Chloride (98-107) mmol/L Carbon Dioxide (22-30) mmol/L Anion Gap (5-15) MEQ/L BUN (9-20) mg/dL Creatinine (0.66-1.25) mg/dL Estimated GFR ML/MIN Glucose (74-106) mg/dL Lactic Acid 1.8 (0.4-2.0) Calcium (8.4-10.2) mg/dL Magnesium (1.6-2.3) mg/dL Total Bilirubin (0.2-1.3) mg/dL AST (17-59) U/L ALT (0-50) U/L Alkaline Phosphatase (38-126) U/L Troponin I < 0.012 (0.000-0.034) ng/mL NT-Pro-B Natriuret Pep (0-1800) pg/mL Serum Total Protein (6.3-8.2) g/dL Albumin (3.5-5.0) g/dL 12/04/18 12/04/18 Range/Units 03:30 03:30 WBC 9.6 (4.0-10.5) K/mm3 RBC 3.99 L (4.1-5.6) M/mm3 Hgb 13.3 (12.5-18.0) gm/dl Hct 41.1 L (42-50) % MCV 103.0 H (78-100) fl MCH 33.3 H (26-32) pg MCHC 32.4 (32-36) g/dl RDW 14.0 (11.5-14.0) % Plt Count 287 (150-450) K/mm3 MPV 11.3 H (6-9.5) fl Gran % 63.3 (36.0-66.0) % Eos # (Auto) 0.03 (0-0.5) Absolute Lymphs (auto) 2.34 (1.0-4.6) Absolute Monos (auto) 1.15 (0.0-1.3) Lymphocytes % 24.3 (24.0-44.0) % Monocytes % 11.9 (0.0-12.0) % Eosinophils % 0.3 (0.00-5.0) % Basophils % 0.2 (0.0-0.4) % Absolute Granulocytes 6.10 (1.4-6.9) Basophils # 0.02 (0-0.4) PT (8.83-12.87) SECONDS INR (0.8-3.0) APTT (24.1-36.1) SECONDS pO2/FiO2 Ratio % VBG pH (7.32-7.42) VBG pCO2 at Pat Temp (42-55) mm/Hg VBG pO2 at Pat Temp (25-40) mm/Hg VBG HCO3 (22-28) meq/L VBG O2 Sat (Julia) (95-100) VBG Base Excess (-2.0-2.0) VBG Hemoglobin VBG Carboxyhemoglobin (0.0-6.9) % T HGB POC Potassium (3.5-5.1) Sodium 140 (137-145) mmol/L Potassium 3.9 (3.5-5.1) mmol/L Chloride 103 (98-107) mmol/L Carbon Dioxide 30 (22-30) mmol/L Anion Gap 11.5 (5-15) MEQ/L BUN 20 (9-20) mg/dL Creatinine 1.09 (0.66-1.25) mg/dL Estimated GFR > 60.0 ML/MIN Glucose 106 (74-106) mg/dL Lactic Acid (0.4-2.0) Calcium 8.7 (8.4-10.2) mg/dL Magnesium 1.8 (1.6-2.3) mg/dL Total Bilirubin 0.60 (0.2-1.3) mg/dL AST 21 (17-59) U/L ALT 19 (0-50) U/L Alkaline Phosphatase 67 (38-126) U/L Troponin I (0.000-0.034) ng/mL NT-Pro-B Natriuret Pep 156 (0-1800) pg/mL Serum Total Protein 5.9 L (6.3-8.2) g/dL Albumin 3.3 L (3.5-5.0) g/dL - Progress Progress: improved, re-examined Air Movement: good Progress Note: 12/04/18 04:38 patient has no respiratory distress, sounds CTA bilaterally and has no new changes on his chest x-ray. Patient has no hypoxia throughout his time in the emergency department and no accessory muscle use Blood Culture(s) Obtained: Yes Antibiotics given: No Counseled pt/family regarding: lab results, diagnosis, need for follow-up, rad results - Departure Departure Disposition: Home Clinical Impression: Shortness of breath, COPD exacerbation Condition: Good Critical Care Time: No Referrals: [facility],'[facility] [Primary Care Provider] - 12/06/18 Instructions: Chronic Obstructive Pulmonary Disease, Shortness of Breath ( Dyspnea) (DC) Additional Instructions: return to the emergency department if any worsening shortness of breath, new fever, new chest pain or any concerning signs or symptoms for immediate re- evaluation Finish Doxycycline from 11/27/2018 visit Prescriptions: Albuterol/Ipratropium 3ml Neb* [DUONEB 0.5-3 MG/3 ml Neb] 3 ml NEBULIZE Q4H PRN PRN #1 box PRN Reason: Wheezing/Chest Congestion Fluticasone/Salmeterol Disc [Advair 250-50 Diskus 14 Dose] 1 each IH BID # 1 disk.w.dev Prednisone 20 mg [Deltasone 20 mg] 60 mg PO DAILY PRN #9 tablet PRN Reason: Sore Throat Relief
[2018-12-04 03:54] LABS: BASOPHIL % 0.2 % (0.0-0.4); Basophil (Absolute #) 0.02 (0-0.4); Eosinophil % 0.3 % (0.00-5.0); Eosinophil (Absolute #) 0.03 (0-0.5); Granulocytes % 63.3 % (36.0-66.0); Hematocrit 41.1 % (42-50); Hemoglobin 13.3 gm/dl (12.5-18.0); Lymphocyte (Absolute #) 2.34 (1.0-4.6); Lymphocytes % 24.3 % (24.0-44.0); Mean Corpuscular Hemoglobin 33.3 pg (26-32); Mean Corpuscular Hgb Concent. 32.4 g/dl (32-36); Mean Platelet Volume 11.3 fl (6-9.5); Monocyte (Absolute #) 1.15 (0.0-1.3); Monocytes % 11.9 % (0.0-12.0); Platelet Count 287 K/mm3 (150-450); Red Blood Count 3.99 M/mm3 (4.1-5.6); White Blood Count 9.6 K/mm3 (4.0-10.5)
[2018-12-04 04:13] LABS: ALBUMIN 3.3 g/dL (3.5-5.0); ALKALINE PHOSPHATASE 67 U/L (38-126); ANION GAP 11.5 MEQ/L (5-15); BLOOD UREA NITROGEN 20 mg/dL (9-20); CHLORIDE 103 mmol/L (98-107); Calcium 8.7 mg/dL (8.4-10.2); Carbon Dioxide 30 mmol/L (22-30); Creatinine 1 1.09 mg/dL (0.66-1.25); Glucose 106 mg/dL (74-106); MAGNESIUM 1.8 mg/dL (1.6-2.3); NT PRO BNP 156 pg/mL (0-1800); Potassium 3.9 mmol/L (3.5-5.1); SGOT/AST 21 U/L (17-59); SGPT/ALT 19 U/L (0-50); SODIUM 140 mmol/L (137-145); Total Protein 5.9 g/dL (6.3-8.2)
[2018-12-04 04:17] LABS: INR 1.16 (0.8-3.0); PROTIME 13.2 SECONDS (8.83-12.87)
[2018-12-04 04:19] LABS: PTT 29.2 SECONDS (24.1-36.1)
[2018-12-04 04:32] VITALS: BP 101/54; O2SAT 96
[2018-12-04] MEDS ORDERED: solu-MEDROL 40 MG IV ONE (04:35)
[2018-12-04] MEDS ORDERED: solu-MEDROL 125 MG ONE (04:39)
[2018-12-04 04:52] VITALS: PULSE 56
--- NOTE | 2018-12-04 09:17 | XRAY ---
Indication: Dyspnea. History COPD. Comparison: November 27, 2018. AP/lateral chest unchanged again demonstrating COPD and bibasilar infiltrates versus atelectasis.. Heart is not enlarged. No new cardiopulmonary abnormalities.
== END 2018-12-04 05:18 | disposition home or self-care (01) ==
LOC: ED 03:16
DX: R06.02 Shortness of breath (principal); J44.1 Chronic obstructive pulmonary disease with (acute) exacerbation; Z79.899 Other long term (current) drug therapy; I10 Essential (primary) hypertension; E78.00 Pure hypercholesterolemia, unspecified
CPT/HCPCS: 36415; 71046; 80053; 82805; 83605; 83735; 83880; 84484; 85025; 85610; 85730; 93005; 93041; 94150; 94640; 96374; 99284; J2920; J2930; A9270-GY

== ENCOUNTER 2018-12-07 15:51 | Emergency (ER) | payer MEDICARE ==
[2018-12-07] MEDS ORDERED: Nitrostat 0.4 MG (ED) SL ONE ×5 (16:00→18:28)
[2018-12-07] MEDS ORDERED: BABY ASPIRIN 81 MG CHEW PO ONE (16:00)
--- NOTE | 2018-12-07 16:02 | ERPHSYRPT ---
- History of Present Illness Time Seen by Provider: 12/07/18 15:55 Source: patient Exam Limitations: no limitations Physician History: Dyspnea that led to Chest Pressure for the past 8 hours. Chest pressure in at left breast with no radiation Timing/Duration: today, hour(s) (8) Activities at Onset: none Severity of Dyspnea-Max: severe Severity of Dyspnea-Current: moderate Possible Cause: frequent episodes Modifying Factors: Improves With: albuterol nebulizer (patient has done two DuoNeb treatments prior to coming into the emergency department today without any relief) Associated Symptoms: constant, chest pain/discomfort, No cough, No edema, No fever, No loss of appetite, No lightheadedness, No wheezing, No weakness, No ankle swelling, No lightheadedness, No leg swelling, No painful breathing, No productive cough International travel in last 2 weeks: No Allergies/Adverse Reactions: No Known Drug Allergies Allergy (Verified 12/07/18 16:08) Home Medications: Furosemide 40 mg [Lasix 40 MG] 40 mg PO DAILY 07/22/17 [History] Losartan Potassium 50 mg [Cozaar 50 MG] 50 mg PO BID 07/29/17 [History] Albuterol 2.5 mg/3 ml Neb [Proventil 2.5 mg/3 ml Neb] 2.5 mg IH Q4HPRN PRN 09/19/17 [History] Albuterol Common Canister [Proventil Common Canister] 2 puff IH TID [History] Timolol [Betimol] 1 drop OP DAILY 09/19/17 [History] Zolpidem Tartrate 10 mg [Ambien 10 MG] 1 tab PO HS PRN PRN 09/19/17 [History ] Gabapentin 400 mg [Neurontin 400 MG] 1,600 mg PO TID 11/16/18 [History] Hx Tetanus, Diphtheria Vaccination/Date Given: No Hx Influenza Vaccination/Date Given: No Hx Pneumococcal Vaccination/Date Given: No - Review of Systems Constitutional: No Fever, No Chills Eyes: No Symptoms, No Eye Pain, No Vision Changes Ears, Nose, & Throat: No Symptoms, No Nose Congestion, No Throat Pain Respiratory: Dyspnea, No Cough Cardiac: Chest Pain, No Edema, No Syncope Abdominal/Gastrointestinal: No Abdominal Pain, No Nausea, No Vomiting, No Diarrhea Genitourinary Symptoms: No Dysuria Musculoskeletal: No Back Pain, No Neck Pain Skin: No Rash Neurological: No Dizziness, No Focal Weakness, No Sensory Changes Psychological: No Symptoms Endocrine: No Symptoms Hematologic/Lymphatic: No Easy Bleeding, No Easy Bruising All Other Systems: Reviewed and Negative - Past Medical History Pertinent Past Medical History: Yes Neurological History: No Pertinent History ENT History: Cataracts, Glaucoma Cardiac History: High Cholesterol, Hypertension Respiratory History: Asthma, COPD Endocrine Medical History: No Pertinent History Musculoskeletal History: Osteoarthritis GI Medical History: Ulcer History: No Pertinent History Psycho-Social History: No Pertinent History Male Reproductive Disorders: No Pertinent History Other Medical History: Pt thinks he may have had a TIA but not diagnosed. 3 back surgeries for "slipped discs". - Past Surgical History Past Surgical History: Yes Neuro Surgical History: No Pertinent History Cardiac: No Pertinent History Respiratory: No Pertinent History Gastrointestinal: Other Genitourinary: No Pertinent History Musculoskeletal: No Pertinent History Male Surgical History: No Pertinent History Other Surgical History: Bleeding ulcer repair, back operations to the lumbar region et neck. - Social History Smoking Status: Current every day smoker How long have you smoked: years Exposure to second hand smoke: Yes Alcohol Use: Socially Drug Use: none Patient Lives Alone: No Significant Family History: no pertinent family hx - Nursing Vital Signs Nursing Vital Signs: Initial Vital Signs Temperature 98.2 F 12/07/18 15:58 Pulse Rate 81 12/07/18 15:58 Respiratory Rate 31 H 12/07/18 15:58 Blood Pressure 123/58 12/07/18 15:58 O2 Sat by Pulse Oximetry 98 12/07/18 15:58 Pain Scale Pain Intensity 2 - Physical Exam General Appearance: mild distress, alert Eye Exam: PERRL/EOMI Ears, Nose, Throat Exam: hearing grossly normal, normal pharynx, No nasal congestion Neck Exam: normal inspection, non-tender, supple, full range of motion Respiratory Exam: diminished breath sounds, No respiratory distress, No accessory muscle use, No crackles/rales, No rhonchi, No wheezing, No stridor Cardiovascular/Chest Exam: normal heart sounds, regular rate/rhythm, normal peripheral pulses Abdominal/Gastrointestinal Exam: soft, No tenderness, No distention, No mass, No rebound Extremity Exam: non-tender, normal range of motion, normal inspection, no calf tenderness, no pedal edema Neurologic Exam: alert, oriented x 3, cooperative, 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 II-XII nml as tested, sensation nml, No motor deficits Skin Exam: normal color, warm, No dry SpO2 Interpretation: normal SpO2: 97 O2 Delivery: Nasal Cannula - Course Nursing assessment & vital signs reviewed: Yes EKG Interpreted by Me: RATE (81), Sinus Rhythm, NORMAL AXIS, NORMAL INTERVALS, Right Bundle Branch Block, NORMAL ST-T, Other (nno specific change in comparison to EKG from 12/04/2018; repeat EKG performed at 17:34 on 12/07/2018 shows no acute changes from previous EKG performed at 15:55 with normal sinus rhythm at 85 beats per minutes with a chronic right bundle branch block but no acute ST or T wave changes) Ordered Tests: Active Orders 24 hr Category Date Time Status Apprenticeship Consultant STAT Care 12/07/18 15:59 Active EKG-ER Only STAT Care 12/07/18 15:58 Active IV Insertion STAT Care 12/07/18 15:58 Active Oxygen-ED Only Nasal Cannula 2 lpm Care 12/07/18 15:58 Active CHEST 1 VIEW (PORTABLE) Stat Exams 12/07/18 15:58 Completed CBC W DIFF Stat Lab 12/07/18 17:00 Completed CMP Stat Lab 12/07/18 Completed Lactic Acid Stat Lab 12/07/18 16:45 Completed MAGNESIUM Stat Lab 12/07/18 Completed NT PRO BNP Stat Lab 12/07/18 Completed PROTIME WITH INR Stat Lab 12/07/18 16:20 Completed PTT Stat Lab 12/07/18 16:20 Completed TROPONIN Q3H Lab 12/07/18 Completed VENOUS BLOOD GAS Stat Lab 12/07/18 16:45 Completed Medication Summary Discontinued Medications Generic Name Dose Route Start Last Admin Trade Name Freq PRN Reason Stop Dose Admin Aspirin 324 mg 12/07/18 16:00 12/07/18 16:06 Baby Aspirin 81 Mg Chew PO 12/07/18 16:01 324 mg STAT ONE Administration Aspirin Confirm 12/07/18 16:05 Baby Aspirin 81 Mg Chew Administered 12/07/18 16:06 Dose 324 mg .ROUTE .STK-MED ONE Sodium Chloride 1,000 mls @ 500 mls/hr 12/07/18 17:45 12/07/18 17:51 Sodium Chloride 0.9% 1000 Ml IV 01/06/19 17:44 500 mls/hr .Q2H GARETT Administration Sodium Chloride Confirm 12/07/18 17:48 Sodium Chloride 0.9% 1000 Ml Administered 12/07/18 17:49 Dose 1,000 mls @ ud .ROUTE .STK-MED ONE Morphine Sulfate 2 mg 12/07/18 18:02 12/07/18 18:04 Morphine Sulfate 2 Mg Inj IV 12/07/18 18:03 2 mg STAT ONE Administration Morphine Sulfate Confirm 12/07/18 18:03 Morphine Sulfate 2 Mg Inj Administered 12/07/18 18:04 Dose 2 mg .ROUTE .STK-MED ONE Nitroglycerin 0.4 mg 12/07/18 16:00 12/07/18 16:06 Nitrostat 0.4 Mg (Ed) SL 12/07/18 16:01 0.4 mg STAT ONE Administration Nitroglycerin Confirm 12/07/18 16:05 Nitrostat 0.4 Mg (Ed) Administered 12/07/18 16:06 Dose 0.4 mg SL .STK-MED ONE Nitroglycerin Confirm 12/07/18 17:59 Nitrostat 0.4 Mg (Ed) Administered 12/07/18 18:00 Dose 0.4 mg SL .STK-MED ONE Nitroglycerin 0.4 mg 12/07/18 18:22 12/07/18 18:30 Nitrostat 0.4 Mg (Ed) SL 12/07/18 18:23 0.4 mg STAT ONE Administration Nitroglycerin Confirm 12/07/18 18:28 Nitrostat 0.4 Mg (Ed) Administered 12/07/18 18:29 Dose 0.4 mg SL .STK-MED ONE Lab/Rad Data: Laboratory Result Diagrams 12/07/18 17:00 12/07/18 Unknown Laboratory Results 12/07/18 12/07/18 12/07/18 Range/Units Unknown Unknown 17:00 WBC 11.4 H (4.0-10.5) K/mm3 RBC 4.43 (4.1-5.6) M/mm3 Hgb 14.6 (12.5-18.0) gm/dl Hct 44.9 (42-50) % MCV 101.4 H (78-100) fl MCH 33.0 H (26-32) pg MCHC 32.5 (32-36) g/dl RDW 13.9 (11.5-14.0) % Plt Count 289 (150-450) K/mm3 MPV 11.5 H (6-9.5) fl Gran % 62.9 (36.0-66.0) % Eos # (Auto) 0.15 (0-0.5) Absolute Lymphs (auto) 2.62 (1.0-4.6) Absolute Monos (auto) 1.47 H (0.0-1.3) Lymphocytes % 22.9 L (24.0-44.0) % Monocytes % 12.8 H (0.0-12.0) % Eosinophils % 1.3 (0.00-5.0) % Basophils % 0.1 (0.0-0.4) % Absolute Granulocytes 7.19 H (1.4-6.9) Basophils # 0.01 (0-0.4) PT (8.83-12.87) SECONDS INR (0.8-3.0) APTT (24.1-36.1) SECONDS pO2/FiO2 Ratio % VBG pH (7.32-7.42) VBG pCO2 at Pat Temp (42-55) mm/Hg VBG pO2 at Pat Temp (25-40) mm/Hg VBG HCO3 (22-28) meq/L VBG O2 Sat (Julia) (95-100) VBG Base Excess (-2.0-2.0) VBG Hemoglobin VBG Carboxyhemoglobin (0.0-6.9) % T HGB POC Potassium (3.5-5.1) Sodium 140 (137-145) mmol/L Potassium 3.5 (3.5-5.1) mmol/L Chloride 105 (98-107) mmol/L Carbon Dioxide 27 (22-30) mmol/L Anion Gap 12.1 (5-15) MEQ/L BUN 22 H (9-20) mg/dL Creatinine 0.93 (0.66-1.25) mg/dL Estimated GFR > 60.0 ML/MIN Glucose 102 (74-106) mg/dL Lactic Acid (0.4-2.0) Calcium 8.9 (8.4-10.2) mg/dL Magnesium 1.8 (1.6-2.3) mg/dL Total Bilirubin 0.90 (0.2-1.3) mg/dL AST 29 (17-59) U/L ALT 20 (0-50) U/L Alkaline Phosphatase 85 (38-126) U/L Troponin I < 0.012 (0.000-0.034) ng/mL NT-Pro-B Natriuret Pep 98.3 (0-1800) pg/mL Serum Total Protein 6.3 (6.3-8.2) g/dL Albumin 3.4 L (3.5-5.0) g/dL 12/07/18 12/07/18 Range/Units 16:45 16:20 WBC (4.0-10.5) K/mm3 RBC (4.1-5.6) M/mm3 Hgb (12.5-18.0) gm/dl Hct (42-50) % MCV (78-100) fl MCH (26-32) pg MCHC (32-36) g/dl RDW (11.5-14.0) % Plt Count (150-450) K/mm3 MPV (6-9.5) fl Gran % (36.0-66.0) % Eos # (Auto) (0-0.5) Absolute Lymphs (auto) (1.0-4.6) Absolute Monos (auto) (0.0-1.3) Lymphocytes % (24.0-44.0) % Monocytes % (0.0-12.0) % Eosinophils % (0.00-5.0) % Basophils % (0.0-0.4) % Absolute Granulocytes (1.4-6.9) Basophils # (0-0.4) PT 13.1 H (8.83-12.87) SECONDS INR 1.16 (0.8-3.0) APTT 23.6 L (24.1-36.1) SECONDS pO2/FiO2 Ratio 28.0 % VBG pH 7.52 H (7.32-7.42) VBG pCO2 at Pat Temp 38 L (42-55) mm/Hg VBG pO2 at Pat Temp 59 H (25-40) mm/Hg VBG HCO3 31.0 H* (22-28) meq/L VBG O2 Sat (Julia) 95.8 (95-100) VBG Base Excess 7.7 H (-2.0-2.0) VBG Hemoglobin 15.5 VBG Carboxyhemoglobin 3.1 (0.0-6.9) % T HGB POC Potassium 3.3 L (3.5-5.1) Sodium (137-145) mmol/L Potassium (3.5-5.1) mmol/L Chloride (98-107) mmol/L Carbon Dioxide (22-30) mmol/L Anion Gap (5-15) MEQ/L BUN (9-20) mg/dL Creatinine (0.66-1.25) mg/dL Estimated GFR ML/MIN Glucose (74-106) mg/dL Lactic Acid 1.4 (0.4-2.0) Calcium (8.4-10.2) mg/dL Magnesium (1.6-2.3) mg/dL Total Bilirubin (0.2-1.3) mg/dL AST (17-59) U/L ALT (0-50) U/L Alkaline Phosphatase (38-126) U/L Troponin I (0.000-0.034) ng/mL NT-Pro-B Natriuret Pep (0-1800) pg/mL Serum Total Protein (6.3-8.2) g/dL Albumin (3.5-5.0) g/dL - Progress Progress: re-examined Air Movement: good Progress Note: 12/07/18 16:21 Chest pressure is much less after SL nitroglycerin, down from a 6/10 to a 3/10. Patient feels better in regards to his dyspnea also. Blood pressure systolic is 96 12/07/18 17:[address] Aron Land, hospitalist at [facility] in [place], [place]. Dr Land accepted the patient for transfer to [facility] 12/07/18 18:00 Patient having a recurrence of chest pressure and with blood pressure improved, Morphine 2mg IV times given. Blood Culture(s) Obtained: No Antibiotics given: No Discussed with Dr.: Other (Dr Aron Land, Hospitalist at [facility] in [place], [place]. Dr Land accepted the patient for transfer) Counseled pt/family regarding: lab results, diagnosis, need for follow-up, rad results - Departure Departure Disposition: Transfer ([facility]) Clinical Impression: Shortness of breath, HTN (hypertension) Chest pain Qualifiers: Ischemic chest pain type: unstable angina pectoris Condition: Fair Critical Care Time: No Referrals: HOSPITAL,'S [Primary Care Provider] -
[2018-12-07] MEDS ORDERED: BABY ASPIRIN 81 MG CHEW ONE (16:05)
[2018-12-07 16:49] LABS: Lactic Acid 1.4 (0.4-2.0); VBG BASE EXCESS 7.7 (-2.0-2.0); VBG CARBOXYHEMOGLOBIN 3.1 % T HGB (0.0-6.9); VBG HEMOGLOBIN 15.5; VBG O2 SATURATION 95.8 (95-100); VBG POTASSIUM 3.3 (3.5-5.1); VBG pH 7.52 (7.32-7.42)
[2018-12-07 17:09] LABS: INR 1.16 (0.8-3.0); PROTIME 13.1 SECONDS (8.83-12.87)
[2018-12-07 17:12] LABS: PTT 23.6 SECONDS (24.1-36.1)
[2018-12-07 17:40] LABS: ALBUMIN 3.4 g/dL (3.5-5.0); ALKALINE PHOSPHATASE 85 U/L (38-126); ANION GAP 12.1 MEQ/L (5-15); BLOOD UREA NITROGEN 22 mg/dL (9-20); CHLORIDE 105 mmol/L (98-107); Calcium 8.9 mg/dL (8.4-10.2); Carbon Dioxide 27 mmol/L (22-30); Creatinine 1 0.93 mg/dL (0.66-1.25); Glucose 102 mg/dL (74-106); MAGNESIUM 1.8 mg/dL (1.6-2.3); NT PRO BNP 98.3 pg/mL (0-1800); Potassium 3.5 mmol/L (3.5-5.1); SGOT/AST 29 U/L (17-59); SGPT/ALT 20 U/L (0-50); SODIUM 140 mmol/L (137-145); Total Protein 6.3 g/dL (6.3-8.2)
[2018-12-07 17:43] LABS: BASOPHIL % 0.1 % (0.0-0.4); Basophil (Absolute #) 0.01 (0-0.4); Eosinophil % 1.3 % (0.00-5.0); Eosinophil (Absolute #) 0.15 (0-0.5); Granulocyte Absolute (ANC) 7.19 (1.4-6.9); Granulocytes % 62.9 % (36.0-66.0); Hematocrit 44.9 % (42-50); Hemoglobin 14.6 gm/dl (12.5-18.0); Lymphocyte (Absolute #) 2.62 (1.0-4.6); Lymphocytes % 22.9 % (24.0-44.0); Mean Cell Volume 101.4 fl (78-100); Mean Corpuscular Hgb Concent. 32.5 g/dl (32-36); Mean Platelet Volume 11.5 fl (6-9.5); Monocyte (Absolute #) 1.47 (0.0-1.3); Monocytes % 12.8 % (0.0-12.0); Platelet Count 289 K/mm3 (150-450); Red Blood Count 4.43 M/mm3 (4.1-5.6); Red Cell Distribution Width 13.9 % (11.5-14.0); White Blood Count 11.4 K/mm3 (4.0-10.5)
[2018-12-07] MEDS ORDERED: Sodium Chloride 0.9% 1000 ML 1,000 ML IV SCH (17:45)
[2018-12-07] MEDS ORDERED: Sodium Chloride 0.9% 1000 ML 1,000 ML ONE (17:48)
[2018-12-07] MEDS ORDERED: MORPHINE SULFATE 2 MG INJ IV ONE (18:02)
[2018-12-07] MEDS ORDERED: MORPHINE SULFATE 2 MG INJ ONE (18:03)
[2018-12-07 18:22] VITALS: O2SAT 97
[2018-12-07 18:33] VITALS: BP 134/77; PULSE 68
--- NOTE | 2018-12-07 19:09 | XRAY ---
Indication: Chest tightness and short of breath. Comparison: December 04, 2018. Portable chest unchanged again demonstrating COPD and bibasilar infiltrates versus atelectasis. Heart is not enlarged. Bony thorax intact.
== END 2018-12-07 18:45 | disposition short-term general hospital (02) ==
LOC: ED 15:51
DX: R06.02 Shortness of breath (principal); I10 Essential (primary) hypertension; I20.0 Unstable angina; Z79.899 Other long term (current) drug therapy; Z86.73 Personal history of transient ischemic attack (TIA), and cerebral infarction without residual deficits
CPT/HCPCS: 36000; 36415; 71045; 80053; 82805; 83605; 83735; 83880; 84484; 85025; 85610; 85730; 93005; 93041; 96360; 96361; 96374; 99285; J2270; A9270-GY